=== PATIENT | male | born 1935 | race Caucasian/White ===

== ENCOUNTER 2016-10-18 22:45 | Inpatient (IN) | payer MEDICARE ==
--- NOTE | 2016-10-18 23:27 | ED ---
General Adult HPI - General Chief complaint: Fall Stated complaint: fall Time Seen by Provider: 10/18/16 23:01 Source: patient, family, EMS, RN notes reviewed Mode of arrival: EMS Limitations: physical limitation - History of Present Illness Initial comments: Patient is a pleasant 81-year-old male presenting to the emergency Department with right hip pain. Patient has poor vision and does frequently fall. Patient fell today. No syncope or loss of consciousness. No head injury. Patient does take Coumadin for atrial fibrillation. Patient complains of discomfort of his right hip that increases with movement. Patient was given pain medicine by EMS. Patient does not want any more pain medication at this time. Patient denies any other area of injury. - Related Data Home Medications Medication Instructions Recorded Confirmed Warfarin [Coumadin] 5 mg PO DAILY 09/08/14 10/18/16 amLODIPine BESYLATE [Norvasc] 10 mg PO DAILY 09/08/14 10/18/16 Metoprolol Tartrate [Lopressor] 50 mg PO DAILY 01/25/15 10/18/16 Lactose-Reduced Food [Boost] 1 can PO DAILY 10/18/16 10/18/16 Allergies Allergy/AdvReac Type Severity Reaction Status Date / Time cephalexin monohydrate Allergy Unknown Unknown Verified 10/18/16 23:11 [From Keflex] ciprofloxacin Allergy Unknown Verified 10/18/16 23:11 Penicillins Allergy Unknown Verified 10/18/16 23:11 Review of Systems ROS Statement: Those systems with pertinent positive or pertinent negative responses have been documented in the HPI. ROS Other: All systems not noted in ROS Statement are negative. Constitutional: Denies: fever Eyes: Denies: eye pain ENT: Denies: ear pain Respiratory: Denies: cough, dyspnea Cardiovascular: Denies: chest pain Endocrine: Denies: fatigue Gastrointestinal: Denies: abdominal pain Genitourinary: Denies: dysuria Musculoskeletal: Reports: arthralgia (Right hip pain) Skin: Denies: rash Neurological: Denies: headache, weakness Past Medical History Past Medical History: Atrial Fibrillation, CVA/TIA, Hypertension, Osteoarthritis (OA), Renal Disease Additional Past Medical History / Comment(s): 01/25/15 Pt presented to [facility] ER with having awoken with R leg weakness and tingling in his R arm. He tried walking and was unable to controll R leg. He is admitted with clinical impression of CVA. 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 History of Any Multi-Drug Resistant Organisms: None Reported Past Surgical History: Coronary Bypass/CABG Additional Past Surgical History / Comment(s): 2009 AAA repair with aortofembypass, bilateral cataract removal. Past Anesthesia/Blood Transfusion Reactions: No Reported Reaction Additional Past Anesthesia/Blood Transfusion Reaction / Comment(s): Per old medical records, pt did recieve blood after AAA repair. Past Psychological History: No Psychological Hx Reported Smoking Status: Current every day smoker Past Alcohol Use History: Daily Past Drug Use History: None Reported - Past Family History Father Family Medical History: CVA/TIA Additional Family Medical History / Comment(s): Father of a CVA at age 63 yrs. Mother Family Medical History: CVA/TIA, Myocardial Infarction ([place]) Additional Family Medical History / Comment(s): Mother at age 85 yrs. General Exam Limitations: physical limitation General appearance: alert, in no apparent distress Head exam: Present: atraumatic Eye exam: Present: PERRL, other (Disconjugate gaze) ENT exam: Present: normal oropharynx Neck exam: Present: normal inspection. Absent: tenderness Respiratory exam: Present: normal lung sounds bilaterally Cardiovascular Exam: Present: irregular rhythm GI/Abdominal exam: Present: soft. Absent: tenderness Extremities exam: Present: tenderness (Right anterior and lateral hip and upper femur.), other (Right leg is shortened and externally rotated. Distally the extremity is neurovascular intact. Pulses intact.) Back exam: Absent: tenderness, vertebral tenderness Neurological exam: Present: alert, oriented X3. Absent: motor sensory deficit Psychiatric exam: Present: normal affect, normal mood Skin exam: Present: normal color Course Vital Signs 10/18/16 10/19/16 22:46 00:19 Temperature 97.4 F L Pulse Rate 72 80 Respiratory 20 18 Rate Blood Pressure 143/76 151/79 O2 Sat by Pulse 96 99 Oximetry EKG Findings - EKG Comments: EKG Findings:: A. fib with a rate of 85. QRS 78. QT 368. QTC 437. Normal axis. Normal QRS. No acute ST change. Medical Decision Making - Medical Decision Making Case was discussed with Dr. Raya who will admit for orthopedic call. He does request medical clearance. - Radiology Data Interpreted by me: X-ray of the pelvis and right hip shows three-part right IT fracture. Chest x- ray shows old rib fractures. Disposition Clinical Impression: Fracture, intertrochanteric, right femur Disposition: ADMITTED IP TO THIS HOSP Referrals: Mark Avelar DO [Primary Care Provider] - 1-2 days Decision Time: 00:34
[2016-10-19] MEDS ORDERED: MORPHINE SULFATE 4 MG/ML SYRINGE IVP STA (00:17)
[2016-10-19] MEDS ORDERED: MORPHINE SULFATE 4 MG/ML SYRINGE IV PRN (00:35)
[2016-10-19] MEDS ORDERED: NALOXONE 0.4 MG/ML 1 ML VIAL IV PRN (00:35)
[2016-10-19] MEDS ORDERED: HYDROcodone/APAP 5-325MG 1 EACH TAB PO PRN (00:35)
--- NOTE | 2016-10-19 00:35 | XR ---
EXAM: XR Chest, 1 View CLINICAL HISTORY: Reason: pain TECHNIQUE: Frontal view of the chest -supine COMPARISON: Chest radiograph 01/25/2015 FINDINGS: Lungs: Lungs are clear. Pleural space: No definite pneumothorax or pleural effusion on supine chest examination. Heart: Heart size within normal limits. Mediastinum: Mediastinal structures are unremarkable. Bones/joints: Old right posterior-lateral fourth, fifth and sixth rib fractures. No definite acute bony abnormalities of imaged bony thorax. IMPRESSION: No evidence of acute cardiopulmonary disease.
--- NOTE | 2016-10-19 00:38 | XR ---
EXAM: XR Pelvis, 1 View CLINICAL HISTORY: Reason: Pain TECHNIQUE: Frontal view of the pelvis. COMPARISON: No relevant prior studies available. FINDINGS: Bones/joints: Degenerative changes involving the lower lumbar spine. No evidence of pelvic fracture or dislocation. There is comminuted, displaced right femoral intertrochanteric fracture. Left hip is unremarkable on AP pelvis. Soft tissues: Surgical clips in the pelvis bilaterally. Vasculature: Extensive arterial vascular calcifications. IMPRESSION: Comminuted, displaced right intertrochanteric femoral fracture. No evidence of pelvic fracture.
--- NOTE | 2016-10-19 00:44 | XR ---
EXAM: XR Right Femur, 2 Views CLINICAL HISTORY: Reason: Pain TECHNIQUE: Frontal and lateral views of the right femur. COMPARISON: Pelvic radiograph 10/18/2016 FINDINGS: Bones/joints: Comminuted fracture traverses the intertrochanteric proximal right femur with significant superior and anterior displacement of major distal fracture fragment as well as some overlapping of major femoral fracture fragments. Chronic appearing calcific density superior to the patella may be related to old trauma. No dislocation. Vasculature: Extensive arterial vascular calcifications. IMPRESSION: Comminuted, displaced intertrochanteric proximal right femoral fracture.
[2016-10-19] MEDS ORDERED: HYDROmorphone 1 MG/ML 1 ML SYRINGE IVP STA (00:59)
[2016-10-19 01:01] LABS: Basophils # (A) 0.1 k/uL (0-0.2); Basophils % (A) 1 %; CH 29.7; CHCM 32.2; Eosinophils % (A) 0 %; HCT 40.1 % (39.0-53.0); HDW 2.64; HGB 12.6 gm/dL (13.0-17.5); Luc # (Auto) 0.15; Luc % (Auto) 1; Lymphocytes % (A) 5 %; MCH 29.2 pg (25.0-35.0); MCHC 31.4 g/dL (31.0-37.0); MCV 92.9 fL (80.0-100.0); Mean Platelet Volume 8.7; Monocytes % (A) 5 %; Neutrophils # (A) 17.4 k/uL (1.3-7.7); Neutrophils % (A) 88 %; RBC 4.31 m/uL (4.30-5.90); RDW 15.9 % (11.5-15.5); WBC 19.7 k/uL (3.8-10.6); WBC (Perox) 19.03
[2016-10-19] MEDS: SODIUM CHLORIDE 0.9% 1,000 ML IV SCH (01:07)
[2016-10-19 01:15] LABS: Calcium 8.8 mg/dL (8.4-10.2); Potassium 4.9 mmol/L (3.5-5.1); Total Bilirubin 0.7 mg/dL (0.2-1.3); Total Protein 6.3 g/dL (6.3-8.2)
[2016-10-19 02:02] LABS: INR 2.6 (<1.2); Partial Thromboplastin Time 29.9 sec (22.0-30.0); Prothrombin Time 24.9 sec (9.0-12.0)
--- NOTE | 2016-10-19 09:00 | P.HPOR ---
History of Present Illness H&P Date: 10/19/16 Chief Complaint: Right hip pain This is an 81-year-old male who fell in his home yesterday sustaining injury to his right hip. He states he normally ambulates with a cane for assistance. He admits to drinking 6 beers a day but states that he hasn't had anything to drink in a couple of weeks. On exam and x-ray in the emergency department he is found to have a comminuted displaced intertrochanteric fracture of the right hip. He is admitted to our service for surgical intervention and care. Past Medical History Past Medical History: Atrial Fibrillation, CVA/TIA, Hypertension, Osteoarthritis (OA), Renal Disease Additional Past Medical History / Comment(s): 01/25/15 Pt presented to [facility] ER with having awoken with R leg weakness and tingling in his R arm. He tried walking and was unable to controll R leg. He is admitted with clinical impression of CVA. 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 History of Any Multi-Drug Resistant Organisms: None Reported Past Surgical History: Coronary Bypass/CABG Additional Past Surgical History / Comment(s): 2008 AAA repair with aortofembypass, bilateral cataract removal. Past Anesthesia/Blood Transfusion Reactions: No Reported Reaction Additional Past Anesthesia/Blood Transfusion Reaction / Comment(s): Per old medical records, pt did recieve blood after AAA repair. Past Psychological History: No Psychological Hx Reported Additional Psychological History / Comment(s): Pt resides alone. His vision is very poor bilaterally. He has tripped and fell. He has a cane to use when he feels he needs it. He cannot drive to to vision, family takes him places. He has a dog. Smoking Status: Current every day smoker Past Alcohol Use History: Daily Additional Past Alcohol Use History / Comment(s): Pt states he is a ppd smoker for about 63 yrs. He drinks 30 beers a week-yesenia buys his beer and states he averages 4-6 beers a day. Past Drug Use History: None Reported - Past Family History Father Family Medical History: CVA/TIA Additional Family Medical History / Comment(s): Father of a CVA at age 63 yrs. Mother Family Medical History: CVA/TIA, Myocardial Infarction ([place]) Additional Family Medical History / Comment(s): Mother at age 85 yrs. Medications and Allergies Home Medications Medication Instructions Recorded Confirmed Type Warfarin [Coumadin] 5 mg PO DAILY 09/08/14 10/18/16 History amLODIPine BESYLATE [Norvasc] 10 mg PO DAILY 09/08/14 10/18/16 History Metoprolol Tartrate [Lopressor] 50 mg PO DAILY 01/25/15 10/18/16 History Lactose-Reduced Food [Boost] 1 can PO DAILY 10/18/16 10/18/16 History Allergies Allergy/AdvReac Type Severity Reaction Status Date / Time cephalexin monohydrate Allergy Unknown Unknown Verified 10/18/16 23:11 [From Keflex] ciprofloxacin Allergy Unknown Verified 10/18/16 23:11 Penicillins Allergy Unknown Verified 10/18/16 23:11 Physical Examination This is an 81-year-old male in no acute distress. He is alert and oriented 3. Exam of the head neck reveal no obvious deformity. He has full cervical spine motion without difficulty or pain. There is no pain palpation about the cervical spine or paraspinal musculature. Exam of the upper extremities unremarkable. He has really good shoulder, elbow, wrist and finger motion without difficulty or pain. No obvious deformities noted. Exam of the lower extremities reveals shortening and external rotation of the right leg. He is able to wiggle toes on the right lower extremity. No pain with motion to the left hip. Neurovascular status to the lower extremities is intact. Results X-rays of the pelvis and right hip reveal a comminuted and shortened intertrochanteric fracture of the right hip. - Labs Labs: Abnormal Lab Results - Last 24 Hours (Table) 10/18/16 10/18/16 10/18/16 Range/Units 22:57 22:57 22:57 WBC 19.7 H (3.8-10.6) k/uL Hgb 12.6 L (13.0-17.5) gm/dL RDW 15.9 H (11.5-15.5) % Neutrophils # 17.4 H (1.3-7.7) k/uL PT 24.9 H (9.0-12.0) sec INR 2.6 H (<1.2) Carbon Dioxide 21 L (22-30) mmol/L BUN 23 H (9-20) mg/dL Creatinine 1.40 H (0.66-1.25) mg/dL Glucose 201 H (74-99) mg/dL Albumin 3.3 L (3.5-5.0) g/dL H & H 10/18/16 Range/Units 22:57 Hgb 12.6 L (13.0-17.5) gm/dL Hct 40.1 (39.0-53.0) % Coagulation 10/18/16 Range/Units 22:57 INR 2.6 H (<1.2) Result Diagrams: 10/18/16 22:57 10/18/16 22:57 Assessment and Plan (1) Fracture, intertrochanteric, right femur Status: Acute (2) EtOH dependence Status: Acute Plan: The clinical and x-ray findings are discussed with the patient. He is admitted to our service for surgical intervention. It is recommended that he undergo closed reduction with insertion of intertrochanteric nail of the right hip. The patient's white count is 19.7. His INR is 2.6. We we'll try to get his INR down over the next 24 hours. We're waiting medical evaluation for presurgical clearance. We will tentatively plan surgery for tomorrow.
[2016-10-19] MEDS: NICOTINE 14MG/24HR PATCH TRANSDERM SCH (09:04)
[2016-10-19] MEDS: HYDROmorphone 1 MG/ML 1 ML SYRINGE IVP PRN ×3 (09:08→16:47)
[2016-10-19] MEDS ORDERED: LORazepam 2 MG/ML SYRINGE IV PRN ×3 (09:15)
[2016-10-19] MEDS ORDERED: THIAMINE 100 MG/ML 2 ML VIAL IM STA (09:15)
[2016-10-19] MEDS ORDERED: PHYTONADIONE ORAL 5 MG/5 ML ORAL.SYRG PO STA (09:16)
[2016-10-19] MEDS: PANTOPRAZOLE 40 MG/10 ML VIAL IVP SCH (10:16)
[2016-10-19] MEDS: METOPROLOL TARTRATE 50 MG TAB PO SCH ×2 (10:18→20:33)
[2016-10-19 10:26] LABS: Calcium 8.4 mg/dL (8.4-10.2); Total Bilirubin 0.9 mg/dL (0.2-1.3); Total Protein 6.2 g/dL (6.3-8.2)
[2016-10-19 10:34] LABS: Basophils % (A) 0 %; CH 29.6; CHCM 31.5; Eosinophils % (A) 0 %; HCT 38.6 % (39.0-53.0); HDW 2.68; HGB 11.8 gm/dL (13.0-17.5); Hypochromasia Slight; Luc # (Auto) 0.16; Luc % (Auto) 1; Lymphocytes # (A) 1.4 k/uL (1.0-4.8); Lymphocytes % (A) 10 %; MCH 28.9 pg (25.0-35.0); MCHC 30.6 g/dL (31.0-37.0); MCV 94.5 fL (80.0-100.0); Mean Platelet Volume 8.7; Monocytes # (A) 0.9 k/uL (0-1.0); Monocytes % (A) 7 %; Neutrophils # (A) 11.6 k/uL (1.3-7.7); Neutrophils % (A) 82 %; RBC 4.08 m/uL (4.30-5.90); RDW 15.9 % (11.5-15.5); WBC 14.1 k/uL (3.8-10.6); WBC (Perox) 13.85
[2016-10-19 10:38] LABS: Potassium 5.4 mmol/L (3.5-5.1)
--- NOTE | 2016-10-19 15:01 | XR ---
EXAMINATION TYPE: XR chest 2V DATE OF EXAM: 10/19/2016 COMPARISON: 09/08/2014 TECHNIQUE: PA and lateral views submitted. HISTORY: Elevated white blood cell count, A. fib FINDINGS: Subsegmental infiltrate at both lung bases. Chronic appearing rib deformities are seen on the right. Arthropathy of both shoulders. No pneumothorax or overt failure. Limited inspiration noted. Atherosclerotic change of the aorta and degenerative change of the spine. IMPRESSION: 1. Basilar subsegmental atelectasis or early infiltrate correlate clinically.
[2016-10-19] MEDS: THIAMINE 100 MG TAB PO SCH (16:44)
[2016-10-20] MEDS: SODIUM CHLORIDE 0.9% 1,000 ML IV SCH ×3 (00:12→11:00)
[2016-10-20] MEDS: HYDROmorphone 1 MG/ML 1 ML SYRINGE IVP PRN (04:04)
--- NOTE | 2016-10-20 06:57 | CONS ---
REASON FOR CONSULTATION: Medical clearance. HISTORY OF PRESENTING ILLNESS: This is an 81-year-old gentleman with history of atrial fibrillation, hypertension, comes into the hospital after sustaining a fall. The patient apparently is legally blind. Patient lives alone. Apparently was walking and suddenly what he thinks is a mechanical fall and tripped and fell. Patient was noted to have significant amount lower abdominal pain and right- sided hip pain. The patient was evaluated in the emergency room and was noted to have an occult fracture. The patient was admitted to the orthopedic service. We were consulted for medical clearance. Patient apparently is able to ambulate with a cane, is minimally active. EKG was noted without any ST-T wave changes. No conduction delays were noted. Past medical history includes atrial fibrillation, CVA, hypertension, osteoarthritis, CKD. SURGICAL HISTORY: Noted for a CABG, AAA repair, bilateral cataract repair. SOCIAL HISTORY: Daily smoker. Lives alone. Drinks about 6 beers daily. No illicit drug uses reported. FAMILY HISTORY: ( ) to the current admission. MEDICATIONS: Home medications will be reviewed, ( ) reconciled. PHYSICAL EXAM: Vitals were reviewed. GENERAL APPEARANCE: Alert and oriented x3, in mild distress. NECK: Supple. No JVD. Head is atraumatic, normocephalic. Pupils are equal, round and reactive to light and accommodation. LUNGS: Diminished breath sounds at bases. No wheezing, rhonchi or crackles. HEART: S1, S2 heard. No murmurs appreciated. ABDOMEN: Soft, nontender. No organomegaly. MUSCULOSKELETAL: Shortening of the right leg with external rotation. LEFT HIP: No tenderness with hip motion. No focal deficits noted on neurologic evaluation. X-ray results were discussed above. Labs include hemoglobin 12.6, hematocrit 40, white count 19.7, platelets of 316. Sodium 137, potassium 4.9, chloride 106, bicarb 21, BUN 23, creatinine 1.40. ASSESSMENT AND PLAN: 1. Right-sided hip fracture due to mechanical fall. 2. Essential hypertension. 3. Atrial fibrillation, that is chronic and persistent. 4. Therapeutic coagulopathy due to Coumadin use. 5. Legal blindness. 6. Alcohol overuse. PLAN: Patient safety issues will need to be addressed prior to discharge. Patient is cleared for the surgery due to the urgent nature of the procedure. The patient is on DVT prophylaxis for another reason. PT,OT will be evaluated. Home safety will also be evaluated. Thank you for the consultation. Will follow the patient along with you. CIWA protocol should be initiated as well. Thiamine is initiated. MTDD
[2016-10-20 07:34] LABS: INR 2.3 (<1.2); Prothrombin Time 22.2 sec (9.0-12.0)
[2016-10-20 07:37] LABS: Anisocytosis Slight; Basophils % (A) 0 %; CH 29.6; CHCM 31.4; Eosinophils % (A) 0 %; HCT 33.8 % (39.0-53.0); HDW 2.62; HGB 10.3 gm/dL (13.0-17.5); Hypochromasia Slight; Luc # (Auto) 0.19; Luc % (Auto) 1; Lymphocytes # (A) 1.2 k/uL (1.0-4.8); Lymphocytes % (A) 9 %; MCHC 30.5 g/dL (31.0-37.0); MCV 95.1 fL (80.0-100.0); Mean Platelet Volume 8.8; Monocytes # (A) 0.8 k/uL (0-1.0); Monocytes % (A) 6 %; Neutrophils # (A) 10.9 k/uL (1.3-7.7); Neutrophils % (A) 83 %; RBC 3.56 m/uL (4.30-5.90); RDW 16.1 % (11.5-15.5); WBC 13.2 k/uL (3.8-10.6); WBC (Perox) 13.26
[2016-10-20] MEDS: amLODIPine 10 MG TAB PO SCH (07:41)
[2016-10-20] MEDS: METOPROLOL TARTRATE 50 MG TAB PO SCH ×2 (07:41→20:56)
[2016-10-20] MEDS: NICOTINE 14MG/24HR PATCH TRANSDERM SCH (07:42)
--- NOTE | 2016-10-20 07:45 | US ---
EXAMINATION TYPE: US venous doppler duplex LE RT DATE OF EXAM: 10/20/2016 7:38 AM COMPARISON: NONE CLINICAL HISTORY: swollen red thigh,rule out DVT. SIDE PERFORMED: Right TECHNIQUE: The lower extremity deep venous system is examined utilizing real time linear array sonog deloris with graded compression, doppler sonography and color-flow sonography. VESSELS IMAGED: External Iliac Vein (EIV) Common Femoral Vein Deep Femoral Vein Greater Saphenous Vein * Femoral Vein Popliteal Vein Small Saphenous Vein * Proximal Calf Veins (* superficial vessels) Grayscale, color doppler, spectral doppler imaging performed of the deep veins of the lower extremit y. There is normal flow, compressibility, vascular waveforms. Right Leg: No evidence of DVT Right femoral vessel Proximal and Mid appear constricted, most likely due to edema, position of leg a nd unrepaired fracture site ( surgery this afternoon); However, flow and compression are both achiev ed IMPRESSION: No evidence for DVT at this time.
[2016-10-20 07:49] LABS: Potassium 5.4 mmol/L (3.5-5.1)
[2016-10-20] MEDS: PANTOPRAZOLE 40 MG/10 ML VIAL IVP SCH (11:00)
[2016-10-20] MEDS: THIAMINE 100 MG TAB PO SCH ×2 (12:27→17:11)
[2016-10-20] MEDS: traMADol 50 MG TAB PO PRN ×2 (12:41→18:46)
[2016-10-20] MEDS ORDERED: SODIUM POLYSTYRENE SULFONATE 30 GM/120 ML BOTTLE RECTAL STA (13:30)
--- NOTE | 2016-10-20 13:57 | CDI ---
In responding to this query, please exercise your independent professional judgment. The [facility] Coding Staff and Clinical Documentation Specialists appreciate your assistance in clarifying documentation, maintaining compliance with coding guidelines, accurately documenting patients condition and capturing severity of illness. The fact that a question is asked does not imply that any particular answer is desired or expected. Communication forms are a method of clarifying documentation and are not made part of the Legal Health Record. Thank you in advance for your clarification. Last Revision, December 2014 Jayshree Magallanes [address] [place] [address] Documentation Clarification Form Date: 10/20/2016 1:39:00 PM From: Katherine Gil Admit Date: 10/19/2016 12:35:00 AM Patient Name: Leon Burrell Visit Number: [id number] Discharge Date: Dr. Atul Persaud Patient presents with a BUN 23, CR 1.40, GFR 49 10/20/16 BUN 24, CR 2.48, GFR 25 Baseline: not noted History/Risk Factors: Chronic Kidney disease, Chronic persistent atrial fibrillation, Hypertension, CVA, Current every day smoker, Alcohol use daily Clinical Indicators: Abnormal lab values Vital signs: 143/76 72 20 97.4 Treatment: Monitor Labs IV Fluids@ 100mil/hr In order to capture the severity of condition, please clarify if the condition signifies: Acute renal failure Please specify (if known): Cortical, Medullary, or Tubular Necrosis? Acute kidney injury Acute on chronic renal failure Chronic renal failure, please stage Chronic kidney disease (CKD) and please stage Stage 1 GFR >90 Stage 2 GFR 60-89 Stage 3 GFR 30-59 Stage 4 GFR 15-29 Stage 5 GFR <15 ESRD Unable to determine Other, specify Please document in your progress notes in order to capture severity of illness and risk of mortality. Include clinical findings that support your diagnosis. FYI: Press F11 to launch patient chart. [id number]
[2016-10-20] MEDS ORDERED: IV FLUID CONTINUATION 1,000 ML IV ONE (14:45)
[2016-10-20] MEDS ORDERED: HYDROmorphone 1 MG/ML 1 ML SYRINGE IVP PRN ×2 (15:01)
[2016-10-20] MEDS ORDERED: DIAZEPAM 5 MG TAB PO PRN (15:01)
[2016-10-20] MEDS ORDERED: HYDROcodone/APAP 5-325MG 1 EACH TAB PO PRN (15:01)
[2016-10-20] MEDS ORDERED: NALOXONE 0.4 MG/ML 1 ML VIAL IV PRN (15:01)
[2016-10-20] MEDS ORDERED: hydrOXYzine PAMOATE 25 MG CAP PO PRN (15:01)
[2016-10-20] MEDS ORDERED: MAGNESIUM HYDROXIDE 2,400 MG/10 ML CUP PO PRN (15:01)
[2016-10-20] MEDS ORDERED: LIDOCAINE 1% INJ 10MG/ML (20 ML MDV) ONE (15:47)
[2016-10-20] MEDS ORDERED: GLYCOPYRROLATE 0.2 MG/ML 2 ML VIAL ONE (15:47)
[2016-10-20] MEDS ORDERED: SUCCINYLCHOLINE CHLORIDE 100 MG/5 ML SYR IV ONE (15:47)
[2016-10-20] MEDS ORDERED: NEOSTIGMINE 1 MG/ML 10 ML VIAL ONE (15:47)
[2016-10-20] MEDS ORDERED: VECURONIUM 10 MG VIAL IV ONE (15:47)
[2016-10-20] MEDS ORDERED: PROPOFOL 10 MG/ML 20 ML VIAL IV ONE (15:47)
[2016-10-20] MEDS ORDERED: PHENYLEPHRINE-0.9% NACL SYG 1 MG/10 ML SYRINGE ONE (15:47)
[2016-10-20] MEDS ORDERED: HYDROmorphone (PF) 1 MG/ML ONE (15:47)
[2016-10-20] MEDS ORDERED: CLINDAMYCIN 600 MG in SODIUM CHLORIDE 0.9% 1,000 ML IRRIGATION ONE (16:47)
[2016-10-20] MEDS: LACTATED RINGERS 1,000 ML IV SCH (17:11)
--- NOTE | 2016-10-20 17:56 | P.OP ---
Date of Procedure: 10/20/16 Preoperative Diagnosis: Postoperative Diagnosis: Procedure(s) Performed: PREOPERATIVE DIAGNOSIS: Right hip comminuted intertrochanteric fracture. POSTOPERATIVE DIAGNOSIS: Right hip comminuted intertrochanteric fracture. OPERATION: Right hip comminuted intertrochanteric fracture closed reduction and intramedullary nailing using Synthes IT nail. ANESTHESIA: Gen. ESTIMATED BLOOD LOSS: 100 mL (approximately 150 mL of additional old blood was evacuated from the hip region.) COMPLICATIONS: None OPERATIVE FINDINGS: See dictation INDICATIONS: Mr. Burrell is an 81-year-old male with a history of falling and sustaining a right intertrochanteric fracture. The patient presents to the operating room today for closed reduction and intramedullary nailing. He is on Coumadin and has developed a hematoma around the hip. I discussed the risks of surgery in detail as being inclusive of but not limited to: Bleeding, infection , scarring, discomfort, blood vessel and/or nerve damage, need for further surgery, malunion, nonunion, gait disturbance including persistent or permanent limp, limb length inequality, arthritis, hardware failure, blood clot, pulmonary embolism, , and other risks. The consent form has been signed. PROCEDURE: After appropriate consent was obtained, the patient was taken to the operating room and placed in supine position. General anesthetic was administered and after confirmation of adequate anesthesia, the patient was carefully placed in the supine position on the operating room table in the fracture table. The patient was placed up against a well-padded peroneal post. Care was taken to make sure about that all pressure points were adequately padded. The affected leg was placed in boot traction and the unaffected leg was placed in a well leg church. It was noted that the right knee contained a 2+ effusion but was stable to medial lateral force. Traction applied to this right leg was therefore carefully adjusted so that it was not excessive. Using gentle longitudinal distraction as well as adduction and internal rotation , the fracture was reduced as assessed by AP and lateral C-arm imaging. Once a satisfactory reduction had been obtained, the thigh was prepped and draped in the usual aseptic fashion using ChloraPrep. Ioban drape was used for the case and the patient received intravenous antibiotics prior to incision. Timeout was called, confirming patient identity, side, procedure, and administration of antibiotics. The incision was then created with a #10 blade just proximal to the greater trochanter laterally. It was carried down through skin into the subcutaneous tissues and through fascia. Hemostasis was obtained using electrocautery. Approximately 150 mL of old blood was suctioned out of the area of the hip using a Yankauer suction. The tip of the greater trochanter was palpated and a guide pin was placed at the tip and directed into the femoral shaft as assessed with C-arm imaging. Once optimal pin position had been obtained, a 17 mm reamer was used over the guide pin to create a path for the IT nail. IT nail selected was assembled to the insertion jig on the back table and bushings were checked for accuracy. The nail was then inserted using gentle mallet taps until it was fully deployed. The amount of rotation of the implant was assessed based on the amount of anteversion of the femoral neck. This was rotated to match the patient 's femoral neck anteversion and the helical blade guide was placed through the insertion jig and through an incision on the lateral side of the thigh more distal than the first. Once this guide was placed against the lateral cortex of the femur, a guide pin was drilled into the central region of the femoral head and neck as based on AP and lateral C-arm imaging. Once optimal pin position had been obtained, the guidewire was measured and appropriately sized helical blade was selected. The path for the helical blade was prepared using a tapered reamer. The helical blade was then inserted using gentle mallet taps along the guidewire until it was fully deployed. There was no displacement of the fracture during this step. The anti-rotation screw was locked down and the insertion apparatus for the helical blade was removed. The guide pin was then removed. Traction was then removed from the leg and the distal interlock was placed through the jig using standard technique. Finally, the insertion jig for the nail was removed and final C-arm images were taken and saved in both AP and lateral planes. The final x-rays showed satisfactory positioning of the implant and good reduction of the fracture. The top of the nail was plugged with a small quantity of bone wax and the incisions were then thoroughly irrigated with normal saline. Final hemostasis was obtained using electrocautery and closure of the fascia was performed using 0-Vicryl suture. 2-0 Vicryl suture was used in the subcutaneous tissues and standard skin closure was performed. Sterile dressing was then applied and the patient was carefully removed from the fracture table frame and placed onto the stretcher. The patient tolerated the procedure well. There were no complications and above noted blood loss. The patient was then subsequently transferred to recovery room in stable condition. Sponge and needle counts were correct. Implants: Indications for Procedure: Operative Findings: Description of Procedure:
[2016-10-20 20:16] LABS: Anisocytosis Slight; Basophils % (A) 0 %; CH 29.6; CHCM 31.4; Eosinophils % (A) 0 %; HCT 29.4 % (39.0-53.0); HDW 2.58; HGB 9.1 gm/dL (13.0-17.5); Hypochromasia Slight; Luc % (Auto) 1; Lymphocytes # (A) 0.7 k/uL (1.0-4.8); Lymphocytes % (A) 5 %; MCH 29.4 pg (25.0-35.0); MCV 94.7 fL (80.0-100.0); Mean Platelet Volume 8.9; Monocytes # (A) 0.9 k/uL (0-1.0); Monocytes % (A) 6 %; Neutrophils # (A) 13.1 k/uL (1.3-7.7); Neutrophils % (A) 88 %; RDW 16.1 % (11.5-15.5); WBC 14.9 k/uL (3.8-10.6); WBC (Perox) 15.77
[2016-10-20] MEDS: CLINDAMYCIN 900 MG in DEXTROSE 5% IN WATER 50 ML IVPB SCH ×2 (21:23)
--- NOTE | 2016-10-20 21:29 | XR ---
EXAMINATION TYPE: XR Hip Limited RT DATE OF EXAM: 10/20/2016 COMPARISON: NONE HISTORY: Intraoperative surgery TECHNIQUE: One view submitted. FINDINGS: There is a postsurgical change in near anatomic alignment. There is soft tissue edema and emphysema. IMPRESSION: 1. Postoperative change. Appears in near-anatomic alignment.
[2016-10-20] MEDS: IPRATROPIUM-ALBUTEROL 3 ML NEB INHALATION SCH (21:31)
[2016-10-20] MEDS: BUDESONIDE 1 MG/2 ML NEBU INHALATION SCH (21:31)
--- NOTE | 2016-10-20 21:48 | XR ---
EXAMINATION TYPE: XR chest 1V portable DATE OF EXAM: 10/20/2016 COMPARISON: Yesterday HISTORY: Hypoxemia TECHNIQUE: Single frontal view of the chest is obtained. FINDINGS: Heart is probably enlarged. There is some infiltrate and atelectasis at both lung bases. T here is no gross heart failure. There are old right-sided healed rib fractures. There are chest leads . IMPRESSION: No heart failure. There is some increasing infiltrate and atelectasis at the lung bases and more on the right side compared to yesterday.
[2016-10-20] MEDS ORDERED: TEMAZEPAM 15 MG CAP PO PRN (22:00)
[2016-10-21] MEDS: SODIUM CHLORIDE 0.9% 1,000 ML IV SCH ×4 (00:18→15:33)
[2016-10-21] MEDS: SENNOSIDES-DOCUSATE SODIUM 1 EACH TAB PO SCH ×2 (00:18→20:45)
[2016-10-21] MEDS: traMADol 50 MG TAB PO PRN (01:06)
[2016-10-21] MEDS: CLINDAMYCIN 900 MG in DEXTROSE 5% IN WATER 50 ML IVPB SCH ×2 (02:03)
[2016-10-21] MEDS: LACTATED RINGERS 1,000 ML IV SCH ×3 (02:04→22:24)
[2016-10-21] MEDS: HYDROmorphone 1 MG/ML 1 ML SYRINGE IVP PRN ×2 (02:57→22:17)
[2016-10-21] MEDS: BUDESONIDE 1 MG/2 ML NEBU INHALATION SCH ×2 (06:04→19:40)
[2016-10-21] MEDS: IPRATROPIUM-ALBUTEROL 3 ML NEB INHALATION SCH ×4 (06:04→19:40)
[2016-10-21] MEDS ORDERED: FUROSEMIDE 10 MG/ML 4 ML VIAL IV STA (06:18)
--- NOTE | 2016-10-21 07:21 | XR ---
EXAMINATION TYPE: XR chest 1V portable DATE OF EXAM: 10/21/2016 COMPARISON: NONE HISTORY: Reduced oxygen saturation TECHNIQUE: Single frontal view of the chest is obtained. FINDINGS: Chronic rib deformities on the right noted. There is underlying COPD. No sizable pneumotho rax. Bilateral areas of infiltrate and tiny effusion noted. Atherosclerotic change aorta. IMPRESSION: 1. Bilateral areas of infiltrate and tiny effusion with underlying COPD.
[2016-10-21 08:10] LABS: Basophils % (A) 0 %; CH 28.6; CHCM 30.4; Eosinophils % (A) 0 %; HCT 26.8 % (39.0-53.0); HDW 2.55; HGB 8.4 gm/dL (13.0-17.5); Hypochromasia Moderate; Luc # (Auto) 0.25; Luc % (Auto) 2; Lymphocytes # (A) 0.8 k/uL (1.0-4.8); Lymphocytes % (A) 5 %; MCH 29.8 pg (25.0-35.0); MCHC 31.5 g/dL (31.0-37.0); MCV 94.6 fL (80.0-100.0); Mean Platelet Volume 8.1; Monocytes # (A) 0.9 k/uL (0-1.0); Monocytes % (A) 6 %; Neutrophils % (A) 87 %; RBC 2.84 m/uL (4.30-5.90); RDW 15.4 % (11.5-15.5); WBC 14.9 k/uL (3.8-10.6); WBC (Perox) 15.97
[2016-10-21 08:21] LABS: Calcium 7.7 mg/dL (8.4-10.2); Potassium 4.8 mmol/L (3.5-5.1)
[2016-10-21 08:25] LABS: INR 1.7 (<1.2); Prothrombin Time 16.4 sec (9.0-12.0)
[2016-10-21] MEDS ORDERED: FUROSEMIDE 10 MG/ML 2 ML VIAL IV ONE (08:50)
[2016-10-21 10:25] LABS: ABG Base Excess -5.1 mmol/L; ABG HCO3 17 mmol/L (21-25); ABG PCO2 21 mmHg (35-45); ABG PH 7.53 (7.35-7.45); ABG PO2 83 mmHg (83-108); ABG TCO2 18 mmol/L (19-24)
--- NOTE | 2016-10-21 10:42 | P.CNPUL ---
History of Present Illness Consult date: 10/21/16 Reason for consult: hypoxemia Chief complaint: Low saturations and possible respiratory distress. History of present illness: Consult dated 10/21/2016 This is an 81-year-old male who apparently presented to the emergency room after falling and fracturing his right hip. I the patient has poor vision and for falls frequently. He apparently sustained a right hip fracture and had surgery yesterday by one of the orthopedic surgeons. I will call yesterday by the nurse early in the morning. Apparently beginning sometime late last night or early in the morning, the patient developed some depressed saturations. They kept on increasing the FiO2. Some additional medications were ordered including some updrafts and Pulmicort. Also in addition, he does some Lasix. Chest x-ray was done. He was placed on a nonrebreather. He denies being short of breath. Denies all complaints. Not a very good historian. It's really hard to get any information from him. He seemed a little to. His saturations are in the high 80s on a nonrebreather and his heart rates in the low 100s. Blood pressures about 110 systolic. Again the patient is not complaining of anything himself. This was the case last night with the nurse call me as well. An 18 was called twice. His home medications apparently included warfarin amlodipine metoprolol and boost. ALLERGIES are Keflex his ciprofloxacin and penicillin. Medical history includes atrial fibrillation CVA hypertension DJD A. fib poor vision BPH anemia and ileus. Surgical history includes bypass grafting AAA repair aortobifem bypass and cataract surgery. Social history significant that is occurring every day smoker and may have some underlying COPD. Denies any alcohol use or illicit drug use. Review of Systems This patient is a very poor historian and denies all complaints. He states she' s not short of breath. Past Medical History Past Medical History: Atrial Fibrillation, CVA/TIA, Hypertension, Osteoarthritis (OA), Renal Disease Additional Past Medical History / Comment(s): 01/25/15 Pt presented to [facility] ER with having awoken with R leg weakness and tingling in his R arm. He tried walking and was unable to controll R leg. He is admitted with clinical impression of CVA. 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 History of Any Multi-Drug Resistant Organisms: None Reported Past Surgical History: Coronary Bypass/CABG Additional Past Surgical History / Comment(s): 2008 AAA repair with aortofembypass, bilateral cataract removal. Past Anesthesia/Blood Transfusion Reactions: No Reported Reaction Additional Past Anesthesia/Blood Transfusion Reaction / Comment(s): Per old medical records, pt did recieve blood after AAA repair. Past Psychological History: No Psychological Hx Reported Additional Psychological History / Comment(s): Pt resides alone. His vision is very poor bilaterally. He has tripped and fell. He has a cane to use when he feels he needs it. He cannot drive to to vision, family takes him places. He has a dog. Smoking Status: Current every day smoker Past Alcohol Use History: Daily Additional Past Alcohol Use History / Comment(s): Pt states he is a ppd smoker for about 63 yrs. He drinks 30 beers a week-yesenia buys his beer and states he averages 4-6 beers a day. Past Drug Use History: None Reported - Past Family History Father Family Medical History: CVA/TIA Additional Family Medical History / Comment(s): Father of a CVA at age 63 yrs. Mother Family Medical History: CVA/TIA, Myocardial Infarction ([place]) Additional Family Medical History / Comment(s): Mother at age 85 yrs. Medications and Allergies Home Medications Medication Instructions Recorded Confirmed Type Warfarin [Coumadin] 5 mg PO DAILY 09/08/14 10/18/16 History amLODIPine BESYLATE [Norvasc] 10 mg PO DAILY 09/08/14 10/18/16 History Metoprolol Tartrate [Lopressor] 50 mg PO DAILY 01/25/15 10/18/16 History Lactose-Reduced Food [Boost] 1 can PO DAILY 10/18/16 10/18/16 History Allergies Allergy/AdvReac Type Severity Reaction Status Date / Time cephalexin monohydrate Allergy Unknown Unknown Verified 10/18/16 23:11 [From Keflex] ciprofloxacin Allergy Unknown Verified 10/18/16 23:11 Penicillins Allergy Unknown Verified 10/18/16 23:11 Physical Exam Osteopathic Statement: *. No significant issues noted on an osteopathic structural exam other than those noted in the History and Physical/Consult. Vitals: Vital Signs Temp Pulse Pulse Pulse Pulse Resp BP 10/21/16 08:27 10/21/16 06:16 101 H 10/21/16 06:10 10/21/16 06:04 94 10/21/16 06:00 10/21/16 04:08 98.7 F 118 H 119/59 10/21/16 00:00 10/20/16 22:00 10/20/16 21:45 98 10/20/16 21:34 79 10/20/16 20:40 98 139/68 10/20/16 20:25 89 128/64 10/20/16 20:10 88 125/61 10/20/16 20:00 112 H 20 10/20/16 19:55 76 108/55 10/20/16 19:40 81 114/58 10/20/16 19:25 84 119/58 10/20/16 19:10 82 115/57 10/20/16 18:55 85 122/62 10/20/16 18:40 98.9 F 97 131/68 10/20/16 18:17 101 H 20 126/78 10/20/16 18:02 112 H 20 121/79 10/20/16 17:47 110 H 20 124/80 10/20/16 17:32 98.9 F 107 H 20 126/79 10/20/16 15:04 10/20/16 14:54 97.9 F 10/20/16 14:48 100 18 143/65 Pulse Ox 10/21/16 08:27 91 L 10/21/16 06:16 10/21/16 06:10 88 L 10/21/16 06:04 10/21/16 06:00 85 L 10/21/16 04:08 90 L 10/21/16 00:00 94 L 10/20/16 22:00 96 10/20/16 21:45 10/20/16 21:34 10/20/16 20:40 95 10/20/16 20:25 96 10/20/16 20:10 95 10/20/16 20:00 10/20/16 19:55 94 L 10/20/16 19:40 95 10/20/16 19:25 93 L 10/20/16 19:10 92 L 10/20/16 18:55 92 L 10/20/16 18:40 94 L 10/20/16 18:17 95 10/20/16 18:02 92 L 10/20/16 17:47 94 L 10/20/16 17:32 97 10/20/16 15:04 86 L 10/20/16 14:54 10/20/16 14:48 90 L Intake and Output 10/20/16 10/21/16 10/21/16 22:59 06:59 14:59 Intake Total 650 800 Output Total 480 550 125 Balance 170 250 -125 Intake: IV 650 800 Sodium Chloride 0.9% 1, 800 000 ml @ 100 mls/hr IV . Q10H MAX Rx#:[id number] Oral 0 Output: Urine 380 550 125 Estimated Blood Loss 100 Other: Voiding Method Indwelling Catheter # Bowel Movements 1 No acute distress. Mildly Tachypnea can dyspneic. Does not really appear to be much difficulty. HEENT examination is grossly unremarkable. Mucous membranes are moist. No oral lesions neck supple. Neck has Full range of motion. No adenopathy or thyromegaly. Cardiovascular examination reveals regular rhythm rate. S1-S2 normal. No S3- S4 or murmur. Lungs reveal mostly clear but clear breath sounds. No wheezes or rhonchi. No crackles. Abdomen soft bowel sounds are heard. Extremities are intact. No cyanosis clubbing or edema. Skin is without rash. Neurologic examination is brief but nonfocal. Results - Laboratory Findings CBC and BMP: 10/21/16 07:35 10/21/16 07:35 ABG ABG pH 7.53 (7.35-7.45) H 10/21/16 09:20 ABG pCO2 21 mmHg (35-45) L 10/21/16 09:20 ABG pO2 83 mmHg (83-108) 10/21/16 09:20 ABG O2 Saturation 98.0 % (94-97) H 10/21/16 09:20 PT/INR, D-dimer PT 16.4 sec (9.0-12.0) H 10/21/16 07:35 INR 1.7 (<1.2) H 10/21/16 07:35 Abnormal lab findings: Abnormal Labs 10/18/16 10/18/16 10/18/16 22:57 22:57 22:57 WBC 19.7 H RBC Hgb 12.6 L Hct MCHC RDW 15.9 H Neutrophils # 17.4 H Lymphocytes # PT 24.9 H INR 2.6 H ABG pH ABG pCO2 ABG HCO3 ABG Total CO2 ABG O2 Saturation Sodium Potassium Carbon Dioxide 21 L BUN 23 H Creatinine 1.40 H Glucose 201 H Calcium Total Protein Albumin 3.3 L 10/19/16 10/19/16 10/20/16 10:00 10:00 06:51 WBC 14.1 H RBC 4.08 L Hgb 11.8 L Hct 38.6 L MCHC 30.6 L RDW 15.9 H Neutrophils # 11.6 H Lymphocytes # PT 22.2 H INR 2.3 H ABG pH ABG pCO2 ABG HCO3 ABG Total CO2 ABG O2 Saturation Sodium Potassium 5.4 H Carbon Dioxide 20 L BUN 32 H Creatinine 1.98 H Glucose 152 H Calcium Total Protein 6.2 L Albumin 3.1 L 10/20/16 10/20/16 10/20/16 06:51 06:51 19:51 WBC 13.2 H 14.9 H RBC 3.56 L 3.10 L Hgb 10.3 L 9.1 L Hct 33.8 L 29.4 L MCHC 30.5 L RDW 16.1 H 16.1 H Neutrophils # 10.9 H 13.1 H Lymphocytes # 0.7 L PT INR ABG pH ABG pCO2 ABG HCO3 ABG Total CO2 ABG O2 Saturation Sodium 133 L Potassium 5.4 H Carbon Dioxide 21 L BUN 45 H Creatinine 2.48 H Glucose 117 H Calcium 8.0 L Total Protein Albumin 10/20/16 10/21/16 10/21/16 19:51 07:35 07:35 WBC RBC Hgb Hct MCHC RDW Neutrophils # Lymphocytes # PT 16.4 H INR 1.7 H ABG pH ABG pCO2 ABG HCO3 ABG Total CO2 ABG O2 Saturation Sodium 133 L Potassium 5.2 H Carbon Dioxide 18 L BUN 50 H Creatinine 1.90 H Glucose 112 H Calcium 7.7 L Total Protein Albumin 10/21/16 10/21/16 07:35 09:20 WBC 14.9 H RBC 2.84 L Hgb 8.4 L Hct 26.8 L MCHC RDW Neutrophils # 13.0 H Lymphocytes # 0.8 L PT INR ABG pH 7.53 H ABG pCO2 21 L ABG HCO3 17 L ABG Total CO2 18 L ABG O2 Saturation 98.0 H Sodium Potassium Carbon Dioxide BUN Creatinine Glucose Calcium Total Protein Albumin - Diagnostic Findings Chest x-ray: image reviewed (Chest x-ray labs and medications are all reviewed.) Assessment and Plan (1) Hypoxemia Status: Acute (2) Atrial fibrillation Status: Acute (3) Hypertension Status: Acute (4) COPD (chronic obstructive pulmonary disease) Status: Acute (5) EtOH dependence Status: Acute (6) Fracture, intertrochanteric, right femur Status: Acute (7) Cerebrovascular accident Status: Acute Plan: Plan dated 10/21/2016 The patient's labs x-rays a medications will all be reviewed. I probably will send him for CTA to rule out PE. The patient will have some additional medications ordered for underlying possible COPD. In addition, with her to figure out how much he drinks because that may be a problem i.e. alcohol withdrawal syndrome. I may move him to the ICU for further observation. Additional recommendations and suggestions are forthcoming. Prognosis is guarded. Time with Patient: Greater than 30
[2016-10-21] MEDS: METOPROLOL TARTRATE 50 MG TAB PO SCH ×2 (11:23→20:45)
[2016-10-21 11:46] LABS: Glucose,Whole Blood 154 mg/dL (75-99)
--- NOTE | 2016-10-21 11:54 | P.PN ---
Progress Note - Text Patient is a pleasant 81-year-old male who is seen and examined at bedside for follow-up evaluation after undergoing right intertrochanteric nail fixation performed by Dr. Raya yesterday, 10/20/2016. Patient states he does continue to have some pain in the right hip. Nursing currently states patient has been having some difficulty with his pulse ox levels which have been reading between 88-92. His saturation was dropping significantly without the use of an oxygen bag. ABGs showed O2 saturation at 98. He has been experiencing some labored and some unlabored breathing. Patient has been discussed in detail with medicine and Dr. Segal in pulmonology. Per orders by Dr. Segal, patient is currently being transferred to the ICU. Medicine to manage anticoagulation therapy. Patient was on Coumadin at home. Physical Exam Intramedullary [place] for Intertrochanteric Fracture: Status post surgical day number 1 Patient is examined hitting up in bed Patient is awake and alert, and oriented 3 Patient is having some labored and some unlabored breathing; currently using an oxygen bag Abdomen soft nontender No signs or symptoms of DVT; no calf pain Lower extremity cuffs in place bilaterally Dressing of the right hip is clean, dry, and intact; no erythema, purulence, or signs of infection Full range of motion of ankles bilaterally Dorsiflexion, plantarflexion, and extensor hallucis longus positive sustained bilaterally Neurovascularly intact bilateral lower extremities Assessment: Status post right intertrochanteric nail fixation for intertrochanteric hip fracture Alcohol dependence Labored and unlabored breathing with difficulty maintaining appropriate O2 saturation levels Plan: 1. Patient to remain nonweightbearing on the right lower extremity; patient may work with physical therapy to increase mobility and ambulation 2. Continue pain control 3. Medicine to continue following the patient for his other medical issues; medicine to continue with anticoagulation therapy 4. Dr. Segal in pulmonology will continue to follow the patient for further evaluation and treatment for his difficulties with labored breathing and difficulties with maintaining appropriate O2 saturation levels 5. We'll continue to follow the patient 6. Patient will more than likely remain in the hospital over the weekend with plans to discharge to rehab facility early next once cleared by medicine and Pulmonology 7. Patient can follow-up with Dr. Raya at [facility] in 2-3 weeks following discharge
[2016-10-21] MEDS: amLODIPine 10 MG TAB PO SCH (13:46)
[2016-10-21] MEDS: NICOTINE 14MG/24HR PATCH TRANSDERM SCH (13:46)
--- NOTE | 2016-10-21 14:07 | FL ---
Fluoroscopy INDICATION: Pain FINDINGS: Fluoroscopy time: 58 seconds. Images obtained: 3. IMPRESSIONS: 1. Documentation of fluoroscopy.
[2016-10-21] MEDS: PANTOPRAZOLE 40 MG/10 ML VIAL IVP SCH (15:34)
[2016-10-21] MEDS: THIAMINE 100 MG TAB PO SCH ×2 (15:34→18:09)
[2016-10-21] MEDS: methylPREDNISolone SOD SUCCI 40 MG/ML 1 ML VIAL IV SCH ×2 (16:52→18:07)
[2016-10-21] MEDS: AZITHROMYCIN 500 MG TAB PO SCH (16:52)
[2016-10-21] MEDS: FORMOTEROL FUMARATE 20 MCG/2 ML NEBU INHALATION SCH (19:38)
--- NOTE | 2016-10-21 19:54 | P.PN ---
Subjective Date of service 10/20/2016 Progress note being dictated for Dr. Rebollar Interval history: This is an 81-year-old gentleman admitted with right-sided hip fracture secondary to mechanical fall, in a patient with history of atrial fibrillation, legally blind, alcohol abuse and multiple other medical issues. Evaluated by orthopedics and surgery pending. Received vitamin K yesterday, INR currently 2.3 and received another dose of vitamin K. Mildly hyperkalemic at 5.4, Kayexalate ordered. Worsened renal function, creatinine 2.48. Sodium 133. Denies chest pain, palpitations or increasing shortness of breath. Objective - Vital Signs Vital signs: Vital Signs Temp 98.9 F 10/20/16 17:32 Pulse 98 10/20/16 21:45 Resp 20 10/20/16 18:17 BP 126/78 10/20/16 18:17 Pulse Ox 95 10/20/16 18:17 Intake & Output 10/20/16 10/20/16 10/21/16 06:59 18:59 06:59 Intake Total 770 1200 Output Total 1342 480 Balance -572 720 Intake: IV 720 1200 Sodium Chloride 0.9% 1, 600 500 000 ml @ 100 mls/hr IV . Q10H MAX Rx#:[id number] Sodium Chloride 0.9% 1, 120 000 ml @ 20 mls/hr IV . Q24H MAX Rx#:[id number] Oral 50 Output: Urine 640 380 Uretheral ([place]) 640 Post Void Residual 702 Estimated Blood Loss 100 Other: Voiding Method Indwelling Catheter Indwelling Catheter - Exam GENERAL: Sitting up in bed, alert and oriented 3, no acute distress HEENT: Conjunctivae normal. eyes normal. NECK: No JVD. No thyroid enlargement. No LNs CARDIOVASCULAR: S1, S2 muffled. No murmur, rub or gallop RESPIRATION: Breath sounds diminished in the bases. No rhonchi or crackles. No bronchial breathing. ABDOMEN: Soft, nontender . No guarding. no masses palpable. No ascites, No hepatosplenomegaly.Bowel sounds heard. NERVOUS SYSTEM: Cranial N 2-12 grossly normal. Diffuse weakness No focal deficits. Skin: no ulcer no rash Lymphatic system. No LN neck axilla or groin. - Labs CBC & Chem 7: 10/21/16 07:35 10/21/16 07:35 Labs: Abnormal Lab Results - Last 24 Hours (Table) 10/20/16 10/20/16 10/20/16 Range/Units 06:51 06:51 06:51 WBC 13.2 H (3.8-10.6) k/uL RBC 3.56 L (4.30-5.90) m/uL Hgb 10.3 L (13.0-17.5) gm/dL Hct 33.8 L (39.0-53.0) % MCHC 30.5 L (31.0-37.0) g/dL RDW 16.1 H (11.5-15.5) % Neutrophils # 10.9 H (1.3-7.7) k/uL Lymphocytes # (1.0-4.8) k/uL PT 22.2 H (9.0-12.0) sec INR 2.3 H (<1.2) Sodium 133 L (137-145) mmol/L Potassium 5.4 H (3.5-5.1) mmol/L Carbon Dioxide 21 L (22-30) mmol/L BUN 45 H (9-20) mg/dL Creatinine 2.48 H (0.66-1.25) mg/dL Glucose 117 H (74-99) mg/dL Calcium 8.0 L (8.4-10.2) mg/dL 10/20/16 10/20/16 Range/Units 19:51 19:51 WBC 14.9 H (3.8-10.6) k/uL RBC 3.10 L (4.30-5.90) m/uL Hgb 9.1 L (13.0-17.5) gm/dL Hct 29.4 L (39.0-53.0) % MCHC (31.0-37.0) g/dL RDW 16.1 H (11.5-15.5) % Neutrophils # 13.1 H (1.3-7.7) k/uL Lymphocytes # 0.7 L (1.0-4.8) k/uL PT (9.0-12.0) sec INR (<1.2) Sodium (137-145) mmol/L Potassium 5.2 H (3.5-5.1) mmol/L Carbon Dioxide (22-30) mmol/L BUN (9-20) mg/dL Creatinine (0.66-1.25) mg/dL Glucose (74-99) mg/dL Calcium (8.4-10.2) mg/dL Assessment and Plan Plan: 1. Right-sided hip fracture secondary to mechanical fall 2. Chronic, persistent Atrial fibrillation, 3. Legal blindness 4. Alcohol abuse 5. Hyperkalemia 6. Acute renal failure #7 hyponatremia, probably hypovolemic Plan: Continue on current medication regime ,monitoring and symptomatic treatment. Kayexalate ordered. IV fluids increased . Close monitoring of electrolytes and renal function with repeat labs ordered for a.m. vitamin K ordered. Orthopedic surgery pending. Further recommendations to follow. The impression and plan of care has been dictated as directedas maribell arceo Dr.: I performed a H&P examination of this patient and discussed the same with the dictator. I agree with the dictator's note. Any additional findings/opinions/ etc. will be noted.
[2016-10-22] MEDS: SODIUM CHLORIDE 0.9% 1,000 ML IV SCH ×3 (02:05→23:56)
[2016-10-22] MEDS: methylPREDNISolone SOD SUCCI 40 MG/ML 1 ML VIAL IV SCH ×5 (02:41→23:58)
[2016-10-22 04:49] LABS: Basophils % (A) 0 %; CH 29.2; CHCM 32.3; Eosinophils % (A) 0 %; HCT 23.4 % (39.0-53.0); HDW 2.63; HGB 7.6 gm/dL (13.0-17.5); Luc # (Auto) 0.07; Luc % (Auto) 1; Lymphocytes # (A) 0.6 k/uL (1.0-4.8); Lymphocytes % (A) 6 %; MCH 29.6 pg (25.0-35.0); MCHC 32.6 g/dL (31.0-37.0); MCV 90.8 fL (80.0-100.0); Mean Platelet Volume 8.4; Monocytes # (A) 0.3 k/uL (0-1.0); Monocytes % (A) 3 %; Neutrophils # (A) 8.1 k/uL (1.3-7.7); Neutrophils % (A) 90 %; RBC 2.57 m/uL (4.30-5.90); RDW 15.9 % (11.5-15.5); WBC 9.1 k/uL (3.8-10.6); WBC (Perox) 9.76
[2016-10-22 05:05] LABS: INR 1.1 (<1.2); Prothrombin Time 10.9 sec (9.0-12.0)
[2016-10-22 05:06] LABS: Calcium 7.9 mg/dL (8.4-10.2); Potassium 4.2 mmol/L (3.5-5.1)
[2016-10-22] MEDS: BUDESONIDE 1 MG/2 ML NEBU INHALATION SCH ×2 (08:11→19:47)
[2016-10-22] MEDS: FORMOTEROL FUMARATE 20 MCG/2 ML NEBU INHALATION SCH ×2 (08:11→19:47)
[2016-10-22] MEDS: IPRATROPIUM-ALBUTEROL 3 ML NEB INHALATION SCH ×4 (08:11→19:47)
[2016-10-22] MEDS: LACTATED RINGERS 1,000 ML IV SCH ×2 (09:03→17:01)
[2016-10-22] MEDS: amLODIPine 10 MG TAB PO SCH (09:05)
[2016-10-22] MEDS: METOPROLOL TARTRATE 50 MG TAB PO SCH ×2 (09:05→20:22)
[2016-10-22] MEDS: AZITHROMYCIN 500 MG TAB PO SCH (09:06)
[2016-10-22] MEDS: NICOTINE 14MG/24HR PATCH TRANSDERM SCH (09:06)
[2016-10-22] MEDS: PANTOPRAZOLE 40 MG/10 ML VIAL IVP SCH (09:06)
--- NOTE | 2016-10-22 09:40 | P.PN ---
Subjective Progress note dated 10/22/2016 This is an 81-year-old male who was I was asked to see yesterday. He apparently fell while at home and he fractured his right hip. He apparently has poor vision and falls frequently. His right hip fracture was repaired by one of the orthopedic surgeons a couple days ago. The patient apparently started having some issues with his breathing and saturations overnight. For this reason I was consulted. I saw the patient yesterday morning. Although I was not sure exactly what was going on with him, it appeared to me that he was having some respiratory distress although he denied everything. He states he was not short of breath. His chest x-ray suggests bibasilar infiltrates and/or atelectasis. The patient was placed on high flow O2 and I decided to transfer him to the ICU for further evaluation and observation. The patient still is not complaining of being short of breath. Not a particularly good historian. He apparently is a heavy drinker though we are concerned also about the possibility of alcohol withdrawal syndrome. His medical history includes among other things atrial fibrillation CVA hypertension DJD poor vision benign prostatic hypertrophy anemia and ileus. Objective - Vital Signs Vital signs: Vital Signs Temp 97.8 F 10/22/16 04:00 Pulse 90 10/22/16 08:41 Resp 14 10/22/16 08:12 BP 119/61 10/22/16 07:00 Pulse Ox 100 10/22/16 07:00 Intake & Output 10/21/16 10/22/16 10/22/16 18:59 06:59 18:59 Intake Total 750 1300 Output Total 1265 885 Balance -515 415 Weight 85.6 kg Intake: IV 750 1300 Lactated Ringers 1,000 ml 600 1300 @ 100 mls/hr IV .Q10H MAX Rx#:[id number] Sodium Chloride 0.9% 1, 150 000 ml @ 100 mls/hr IV . Q10H MAX Rx#:[id number] Output: Urine 1265 885 Other: Voiding Method Indwelling Catheter Indwelling Catheter # Bowel Movements 1 - Exam No acute distress, somewhat lethargic but arouses. Does answer appropriately. HEENT examination is grossly unremarkable. Mucous membranes are moist. Neck supple. Full range of motion. No adenopathy or thyromegaly. Neck veins are flat. Cardiovascular examination reveals distant heart sounds. S1-S2 normal. No S3- S4 or murmur. Bibasilar crackles. No wheezes. A few scattered rhonchi. Exam is pretty benign though. Abdomen soft bowel sounds are heard. Extremities are intact. No cyanosis clubbing or edema. Skin without rash. Neurologic examination is nonfocal. - Labs CBC & Chem 7: 10/22/16 03:52 10/22/16 03:52 Labs: Abnormal Lab Results - Last 24 Hours (Table) 10/21/16 10/21/16 10/22/16 Range/Units 09:20 11:43 03:52 RBC (4.30-5.90) m/uL Hgb (13.0-17.5) gm/dL Hct (39.0-53.0) % RDW (11.5-15.5) % Neutrophils # (1.3-7.7) k/uL Lymphocytes # (1.0-4.8) k/uL ABG pH 7.53 H (7.35-7.45) ABG pCO2 21 L (35-45) mmHg ABG HCO3 17 L (21-25) mmol/L ABG Total CO2 18 L (19-24) mmol/L ABG O2 Saturation 98.0 H (94-97) % Sodium 132 L (137-145) mmol/L Carbon Dioxide 21 L (22-30) mmol/L BUN 52 H (9-20) mg/dL Creatinine 1.80 H (0.66-1.25) mg/dL Glucose 153 H (74-99) mg/dL POC Glucose (mg/dL) 154 H (75-99) mg/dL Calcium 7.9 L (8.4-10.2) mg/dL 10/22/16 Range/Units 03:52 RBC 2.57 L (4.30-5.90) m/uL Hgb 7.6 L (13.0-17.5) gm/dL Hct 23.4 L (39.0-53.0) % RDW 15.9 H (11.5-15.5) % Neutrophils # 8.1 H (1.3-7.7) k/uL Lymphocytes # 0.6 L (1.0-4.8) k/uL ABG pH (7.35-7.45) ABG pCO2 (35-45) mmHg ABG HCO3 (21-25) mmol/L ABG Total CO2 (19-24) mmol/L ABG O2 Saturation (94-97) % Sodium (137-145) mmol/L Carbon Dioxide (22-30) mmol/L BUN (9-20) mg/dL Creatinine (0.66-1.25) mg/dL Glucose (74-99) mg/dL POC Glucose (mg/dL) (75-99) mg/dL Calcium (8.4-10.2) mg/dL Assessment and Plan (1) Hypoxemia Status: Acute (2) Atrial fibrillation Status: Acute (3) Hypertension Status: Acute (4) COPD (chronic obstructive pulmonary disease) Status: Acute (5) EtOH dependence Status: Acute (6) Fracture, intertrochanteric, right femur Status: Acute (7) Cerebrovascular accident Status: Acute Plan: Plan dated 10/21/2016 The patient's labs x-rays a medications will all be reviewed. I probably will send him for CTA to rule out PE. The patient will have some additional medications ordered for underlying possible COPD. In addition, with her to figure out how much he drinks because that may be a problem i.e. alcohol withdrawal syndrome. I may move him to the ICU for further observation. Additional recommendations and suggestions are forthcoming. Prognosis is guarded. Plan dated 10/22/2016 The patient's currently on 6 L high flow. The patient's IV is lactated Ringer' s at 100 mL an hour. Chest x-ray does show what appears to be some bibasilar infiltrates or atelectasis. Possible aspiration. We'll make sure the patient' s labs x-rays a medications are all reviewed. Likely put him on some updrafts and also make sure he is on some antibiotics. He continues to show improvement he may be able to titrate be transferred back down to the third floor. Additional recommendations and suggestions are forthcoming. Prognosis is guarded though. We'll continue to follow closely. Time with Patient: Greater than 30
[2016-10-22 09:55] LABS: ABG HCO3 18 mmol/L (21-25); ABG PCO2 22 mmHg (35-45); ABG PH 7.52 (7.35-7.45); ABG PO2 56 mmHg (83-108); ABG TCO2 19 mmol/L (19-24)
[2016-10-22] MEDS: HYDROmorphone 1 MG/ML 1 ML SYRINGE IVP PRN (09:55)
[2016-10-22 09:56] LABS: ABG Base Excess -4.6 mmol/L
--- NOTE | 2016-10-22 10:23 | P.PN ---
Progress Note - Text Patient is a pleasant 81-year-old male who is seen and examined at bedside in the ICU for follow-up evaluation after undergoing right intertrochanteric nail fixation performed by Dr. Raya 10/20/2016. Is being seen and examined yesterday, patient has had some improvement. He was transferred to the ICU after he was found to be hypoxic. He continues to receive O2 nasal cannula with 6 L of oxygen. He has had some improvement but will remain in the ICU today. If he continues to improve, Dr. Segal may transfer him back to the third floor. Since being transferred to the ICU, anticoagulation has not been resumed by medicine. We'll plan to resume Coumadin 5 mg today. Patient also states he continues to have pain at the right hip. He is known have degenerative changes lumbar spine. Patient and his family states he takes Florence 10 mg/325 mg 1 tab every 8 hours for pain control in the outpatient setting. We will plan to resume this medication while discontinuing tramadol. Appropriate prescription for pain medication will be discussed prior to discharge. Physical Exam Intramedullary Rodding for Intertrochanteric Fracture: Status post surgical day number 2 Patient is examined hitting up in bed Patient is awake and alert, and oriented 3 Evidence of adequate chest excursion with inspiration and expiration; currently on O2 nasal cannula receiving 6 L of oxygen Abdomen soft nontender No signs or symptoms of DVT; no calf pain Lower extremity cuffs in place bilaterally Dressing of the right hip is clean, dry, and intact; no erythema, purulence, or signs of infection; some evidence of dried drainage and dried blood at the incision sites Full range of motion of ankles bilaterally Dorsiflexion, plantarflexion, and extensor hallucis longus positive sustained bilaterally Neurovascularly intact bilateral lower extremities Assessment: Status post right intertrochanteric nail fixation for intertrochanteric hip fracture Alcohol dependence Hypoxia Atrial fibrillation Plan: 1. Patient to remain nonweightbearing on the right lower extremity; patient may work with physical therapy to increase mobility and ambulation 2. Continue pain control; will plan to discontinue tramadol; will start Florence 10 mg/325 mg 1 tab every 8 hours as needed for pain 3. Medicine to continue following the patient for his other medical issues; medicine to continue with anticoagulation therapy; medicine did not resume anticoagulation therapy yesterday, as we'll plan to resume Coumadin 5 mg as prescribed for home dosing with serial PT INR lab draws 4. Dr. Segal in pulmonology will continue to follow the patient for further evaluation and treatment for hypoxia 5. We'll continue to follow the patient 6. Patient will more than likely remain in the hospital over the weekend with plans to discharge to rehab facility early next once cleared by medicine and Pulmonology 7. Patient can follow-up with Dr. Raya at [facility] in 2-3 weeks following discharge
[2016-10-22 12:31] LABS: Creatine Kinase MB 3.7 ng/mL (0.0-2.4); Troponin I 0.107 ng/mL (0.000-0.034)
[2016-10-22] MEDS: THIAMINE 100 MG TAB PO SCH ×2 (13:10→17:00)
[2016-10-22] MEDS: HYDROcodone/APAP 10-325MG 1 EACH TAB PO PRN ×2 (13:10→20:21)
--- NOTE | 2016-10-22 13:22 | NM ---
EXAMINATION TYPE: NM pul vent and perfuse DATE OF EXAM: 10/22/2016 COMPARISON: Chest radiograph dated 10/21/2016 HISTORY: Shortness of breath TECHNIQUE: Utilizing inhalation of 71.5 mCi Tc 99m DTPA aerosol and intravenous injection of 5.5 mCi of Tc 99m MAA, ventilation and perfusion images are acquired post injection in multiple projections. FINDINGS: Triple matched defects are seen within the right middle lobe, right lung base, and posterior left low er lobe. Air-trapping is seen within the lung apices from known underlying COPD. Unequal distribution of radiotracer is noted, which is also likely related to areas of air trapping from COPD. There is n o evidence of mismatched defects. IMPRESSION: Low probability for pulmonary embolus. Triple matched defects corresponding to the known airspace dis ease within the right middle lobe, right lower lobe, and left lower lobe. Numerous regions of air tra pping from the known underlying COPD.
[2016-10-22] MEDS ORDERED: Magnesium Replacement Protocol 1 EACH MISC MISCELLANE PRN (13:34)
--- NOTE | 2016-10-22 13:43 | XR ---
EXAMINATION TYPE: XR chest 1V portable DATE OF EXAM: 10/22/2016 COMPARISON: 10/21/2016. HISTORY: Pneumonia TECHNIQUE: Single frontal view of the chest is obtained. FINDINGS: Focal air space disease is improving within the right lower lobe the worsening within the retrocardiac airspace. Known underlying COPD is present with biapical lucency. Questionable left apic al pneumothorax is present, however lung markings appear to be visible beyond the periphery of the cr escentic linear density and therefore inspiratory and expiratory images are recommended for reevaluat ion. IMPRESSION: 1. Crescentic density in the left apex that could represent a pneumothorax, however lung markings radhika ear to be present beyond this and therefore this also could relate to skinfold. Inspiratory and excre tory imaging is recommended for further evaluation. 2. Improving right basilar airspace disease and worsening retrocardiac pneumonia.
--- NOTE | 2016-10-22 16:09 | P.PN ---
Subjective Progress note being dictated for Dr. Aiken Interval history: This is an 81-year-old gentleman admitted with right-sided hip fracture secondary to mechanical fall, in a patient with history of atrial fibrillation, legally blind, alcohol abuse and multiple other medical issues. Evaluated by orthopedics and surgery pending. Received vitamin K yesterday, INR currently 2.3 and received another dose of vitamin K. Mildly hyperkalemic at 5.4, Kayexalate ordered. Worsened renal function, creatinine 2.48. Sodium 133. Denies chest pain, palpitations or increasing shortness of breath. 10/21/2016 status post right intertrochanteric nail fixation for hip fracture POD #1. Complaining of right hip pain. Desatted with labored breathing, though states not short of breath.Received Lasix, nebulized bronchodilators and placed on a nonrebreather initially. Chest x-ray reported bilateral areas of infiltrate and tiny effusion, underlying COPD. evaluated by Dr. Segal, transferred to ICU. Hemoglobin 8.4. Renal function improving. Unable to perform review of systems as patient with vague historian, currently doesn't remember he had surgery yesterday. Active Medications Hydrocodone Bitart/Acetaminophen (Vance 10) 1 each PO Q8H PRN PRN Reason: Pain Last Admin: 10/22/16 13:10 Dose: 1 each Albuterol/Ipratropium (Duoneb 0.5 Mg-3 Mg/3 Ml Soln) 3 ml INHALATION RT-QID [facility] Last Admin: 10/22/16 11:59 Dose: Not Given Amlodipine Besylate (Norvasc) 10 mg PO DAILY [facility] Last Admin: 10/22/16 09:05 Dose: 10 mg Aspirin (Aspirin) 81 mg PO DAILY [facility] Atorvastatin Calcium (Lipitor) 40 mg PO DAILY [facility] Azithromycin (Zithromax) 500 mg PO DAILY [facility] Last Admin: 10/22/16 09:06 Dose: 500 mg Budesonide (Pulmicort) 1 mg INHALATION RT-BID [facility] Last Admin: 10/22/16 08:11 Dose: 1 mg Formoterol Fumarate (Perforomist) 20 mcg INHALATION RT-BID [facility] Last Admin: 10/22/16 08:11 Dose: 20 mcg Hydromorphone HCl (Dilaudid) 1 mg IVP Q3HR PRN PRN Reason: Pain Last Admin: 10/20/16 04:04 Dose: 1 mg Hydromorphone HCl (Dilaudid) 0.125 mg IVP Q3HR PRN PRN Reason: Pain Scale 1 to 3 Hydromorphone HCl (Dilaudid) 0.25 mg IVP Q3HR PRN PRN Reason: Pain Scale 4 to 6 Last Admin: 10/22/16 09:55 Dose: 0.25 mg Hydromorphone HCl (Dilaudid) 0.5 mg IVP Q3HR PRN PRN Reason: Pain Scale 7 to 10 Hydroxyzine Pamoate (Vistaril) 25 mg PO Q4HR PRN PRN Reason: Mild Nausea and/or Anxiety Sodium Chloride (Saline 0.9%) 1,000 mls @ 100 mls/hr IV .Q10H [facility] Last Admin: 10/22/16 13:10 Dose: Not Given Lactated Ringer's (Lactated Ringers) 1,000 mls @ 100 mls/hr IV .Q10H [facility] Last Admin: 10/22/16 09:03 Dose: 100 mls/hr Lorazepam (Ativan) 1 mg IV Q2HR PRN PRN Reason: CIWA 8 or 9 Lorazepam (Ativan) 1 mg IV Q1HR PRN PRN Reason: CIWA 10 to 15 Lorazepam (Ativan) 2 mg IV Q10M PRN PRN Reason: CIWA 16 or higher Stop: 10/26/16 09:16 Magnesium Hydroxide (Milk Of Magnesia) 2,400 mg PO DAILY PRN PRN Reason: Constipation Methylprednisolone Sodium Succinate (Solu-Medrol) 40 mg IV Q6HR [facility] Last Admin: 10/22/16 13:10 Dose: 40 mg Metoprolol Tartrate (Lopressor) 50 mg PO BID [facility] Last Admin: 10/22/16 09:05 Dose: 50 mg Miscellaneous Information (Magnesium Per Protocol) 1 each MISCELLANE DAILY PRN ; Protocol PRN Reason: Per Protocol Naloxone HCl (Narcan) 0.2 mg IV Q2M PRN PRN Reason: Opioid Reversal Nicotine (Habitrol 14mg/24hr Patch) 1 patch TRANSDERM DAILY [facility] Last Admin: 10/22/16 09:06 Dose: 1 patch Ondansetron HCl (Zofran) 4 mg IVP Q6HR PRN PRN Reason: Nausea And Vomiting Pantoprazole Sodium (Protonix) 40 mg IVP DAILY [facility] Last Admin: 10/22/16 09:06 Dose: 40 mg Senna/Docusate Sodium (Senokot-S) 2 each PO HS [facility] Last Admin: 10/21/16 20:45 Dose: 2 each Thiamine HCl (Vitamin B-1) 100 mg PO BID@1200,1700 [facility] Last Admin: 10/22/16 13:10 Dose: 100 mg Warfarin Sodium (Coumadin) 5 mg PO DAILY@1800 [facility] Objective - Vital Signs Vital signs: Vital Signs Temp 98.2 F 10/21/16 16:00 Pulse 89 10/21/16 19:41 Resp 16 10/21/16 18:00 BP 109/62 10/21/16 18:00 Pulse Ox 92 L 10/21/16 18:00 Intake & Output 10/21/16 10/21/16 10/22/16 06:59 18:59 06:59 Intake Total 800 750 Output Total 550 1265 Balance 250 -515 Intake: IV 800 750 Lactated Ringers 1,000 ml 600 @ 100 mls/hr IV .Q10H [facility] Rx#:[id number] Sodium Chloride 0.9% 1, 800 150 000 ml @ 100 mls/hr IV . Q10H [facility] Rx#:[id number] Oral 0 Output: Urine 550 1265 Other: Voiding Method Indwelling Catheter Indwelling Catheter # Bowel Movements 1 1 - Exam GENERAL: Sitting up in bed, alert and oriented 3, no acute distress HEENT: Conjunctivae normal. Oral mucosa moist. NECK: No JVD. No thyroid enlargement. No LNs CARDIOVASCULAR: S1, S2 muffled. No murmur, rub or gallop RESPIRATION: Respiratory effort mildly increased, Breath sounds diminished in the bases. No rhonchi or crackles. No bronchial breathing. ABDOMEN: Soft, nontender . No guarding. no masses palpable. No ascites, No hepatosplenomegaly.Bowel sounds heard. NERVOUS SYSTEM: Cranial N 2-12 grossly normal. Diffuse weakness No focal deficits. Skin: no ulcer no rash Lymphatic system. No LN neck axilla or groin. - Labs CBC & Chem 7: 10/22/16 03:52 10/22/16 03:52 Labs: Abnormal Lab Results - Last 24 Hours (Table) 10/20/16 10/20/16 10/21/16 Range/Units 19:51 19:51 07:35 WBC 14.9 H (3.8-10.6) k/uL RBC 3.10 L (4.30-5.90) m/uL Hgb 9.1 L (13.0-17.5) gm/dL Hct 29.4 L (39.0-53.0) % RDW 16.1 H (11.5-15.5) % Neutrophils # 13.1 H (1.3-7.7) k/uL Lymphocytes # 0.7 L (1.0-4.8) k/uL PT 16.4 H (9.0-12.0) sec INR 1.7 H (<1.2) ABG pH (7.35-7.45) ABG pCO2 (35-45) mmHg ABG HCO3 (21-25) mmol/L ABG Total CO2 (19-24) mmol/L ABG O2 Saturation (94-97) % Sodium (137-145) mmol/L Potassium 5.2 H (3.5-5.1) mmol/L Carbon Dioxide (22-30) mmol/L BUN (9-20) mg/dL Creatinine (0.66-1.25) mg/dL Glucose (74-99) mg/dL POC Glucose (mg/dL) (75-99) mg/dL Calcium (8.4-10.2) mg/dL 10/21/16 10/21/16 10/21/16 Range/Units 07:35 07:35 09:20 WBC 14.9 H (3.8-10.6) k/uL RBC 2.84 L (4.30-5.90) m/uL Hgb 8.4 L (13.0-17.5) gm/dL Hct 26.8 L (39.0-53.0) % RDW (11.5-15.5) % Neutrophils # 13.0 H (1.3-7.7) k/uL Lymphocytes # 0.8 L (1.0-4.8) k/uL PT (9.0-12.0) sec INR (<1.2) ABG pH 7.53 H (7.35-7.45) ABG pCO2 21 L (35-45) mmHg ABG HCO3 17 L (21-25) mmol/L ABG Total CO2 18 L (19-24) mmol/L ABG O2 Saturation 98.0 H (94-97) % Sodium 133 L (137-145) mmol/L Potassium (3.5-5.1) mmol/L Carbon Dioxide 18 L (22-30) mmol/L BUN 50 H (9-20) mg/dL Creatinine 1.90 H (0.66-1.25) mg/dL Glucose 112 H (74-99) mg/dL POC Glucose (mg/dL) (75-99) mg/dL Calcium 7.7 L (8.4-10.2) mg/dL 10/21/16 Range/Units 11:43 WBC (3.8-10.6) k/uL RBC (4.30-5.90) m/uL Hgb (13.0-17.5) gm/dL Hct (39.0-53.0) % RDW (11.5-15.5) % Neutrophils # (1.3-7.7) k/uL Lymphocytes # (1.0-4.8) k/uL PT (9.0-12.0) sec INR (<1.2) ABG pH (7.35-7.45) ABG pCO2 (35-45) mmHg ABG HCO3 (21-25) mmol/L ABG Total CO2 (19-24) mmol/L ABG O2 Saturation (94-97) % Sodium (137-145) mmol/L Potassium (3.5-5.1) mmol/L Carbon Dioxide (22-30) mmol/L BUN (9-20) mg/dL Creatinine (0.66-1.25) mg/dL Glucose (74-99) mg/dL POC Glucose (mg/dL) 154 H (75-99) mg/dL Calcium (8.4-10.2) mg/dL Assessment and Plan Plan: 1. Right-sided hip fracture secondary to mechanical fall, status post surgical repair 2. Acute hypoxic respiratory failure 3. Acute COPD exacerbation 4. Chronic, persistent Atrial fibrillation, 5. Legal blindness 6. Alcohol abuse 7. Acute renal failure 8. hyponatremia, probably hypovolemic Plan: Continue on current medication regime ,monitoring and symptomatic treatment. Transferred to ICU for closer monitoring .VQ scan pending. Close monitoring of electrolytes and renal function with repeat labs ordered for a.m. vitamin K ordered. Prognosis guarded given multiple complex medical issues. Further recommendations to follow. The impression and plan of care has been dictated as directedas a adis Mcbride: I performed a H&P examination of this patient and discussed the same with the dictator. I agree with the dictator's note. Any additional findings/opinions/ etc. will be noted.
--- NOTE | 2016-10-22 16:18 | P.PN ---
Subjective Progress note being dictated for Dr. Aiken Interval history: This is an 81-year-old gentleman admitted with right-sided hip fracture secondary to mechanical fall, in a patient with history of atrial fibrillation, legally blind, alcohol abuse and multiple other medical issues. Evaluated by orthopedics and surgery pending. Received vitamin K yesterday, INR currently 2.3 and received another dose of vitamin K. Mildly hyperkalemic at 5.4, Kayexalate ordered. Worsened renal function, creatinine 2.48. Sodium 133. Denies chest pain, palpitations or increasing shortness of breath. 10/21/2016 status post right intertrochanteric nail fixation for hip fracture POD #1. Complaining of right hip pain. Desatted with labored breathing, though states not short of breath.Received Lasix, nebulized bronchodilators and placed on a nonrebreather initially. Chest x-ray reported bilateral areas of infiltrate and tiny effusion, underlying COPD. evaluated by Dr. Segal, transferred to ICU. Hemoglobin 8.4. Renal function improving. 10/22/16 maintained on antibiotics, nebulized bronchodilators. Slow improvement in respiratory function. Maintaining O2 sats of 91% on 5 L nasal cannula. Denies shortness of breath. VQ reporting low probability for PE, underlying COPD. chest x-ray noted. Maintained on CIWA protocol, possible early DTs. Unable to perform review of systems as patient with vague historian, currently doesn't remember he had surgery yesterday, confused. Active Medications Hydrocodone Bitart/Acetaminophen ([place] 10) 1 each PO Q8H PRN PRN Reason: Pain Last Admin: 10/22/16 13:10 Dose: 1 each Albuterol/Ipratropium (Duoneb 0.5 Mg-3 Mg/3 Ml Soln) 3 ml INHALATION RT-QID [facility] Last Admin: 10/22/16 11:59 Dose: Not Given Amlodipine Besylate (Norvasc) 10 mg PO DAILY [facility] Last Admin: 10/22/16 09:05 Dose: 10 mg Aspirin (Aspirin) 81 mg PO DAILY [facility] Atorvastatin Calcium (Lipitor) 40 mg PO DAILY [facility] Azithromycin (Zithromax) 500 mg PO DAILY [facility] Last Admin: 10/22/16 09:06 Dose: 500 mg Budesonide (Pulmicort) 1 mg INHALATION RT-BID [facility] Last Admin: 10/22/16 08:11 Dose: 1 mg Formoterol Fumarate (Perforomist) 20 mcg INHALATION RT-BID [facility] Last Admin: 10/22/16 08:11 Dose: 20 mcg Hydromorphone HCl (Dilaudid) 1 mg IVP Q3HR PRN PRN Reason: Pain Last Admin: 10/20/16 04:04 Dose: 1 mg Hydromorphone HCl (Dilaudid) 0.125 mg IVP Q3HR PRN PRN Reason: Pain Scale 1 to 3 Hydromorphone HCl (Dilaudid) 0.25 mg IVP Q3HR PRN PRN Reason: Pain Scale 4 to 6 Last Admin: 10/22/16 09:55 Dose: 0.25 mg Hydromorphone HCl (Dilaudid) 0.5 mg IVP Q3HR PRN PRN Reason: Pain Scale 7 to 10 Hydroxyzine Pamoate (Vistaril) 25 mg PO Q4HR PRN PRN Reason: Mild Nausea and/or Anxiety Sodium Chloride (Saline 0.9%) 1,000 mls @ 100 mls/hr IV .Q10H [facility] Last Admin: 10/22/16 13:10 Dose: Not Given Lactated Ringer's (Lactated Ringers) 1,000 mls @ 100 mls/hr IV .Q10H [facility] Last Admin: 10/22/16 09:03 Dose: 100 mls/hr Lorazepam (Ativan) 1 mg IV Q2HR PRN PRN Reason: CIWA 8 or 9 Lorazepam (Ativan) 1 mg IV Q1HR PRN PRN Reason: CIWA 10 to 15 Lorazepam (Ativan) 2 mg IV Q10M PRN PRN Reason: CIWA 16 or higher Stop: 10/26/16 09:16 Magnesium Hydroxide (Milk Of Magnesia) 2,400 mg PO DAILY PRN PRN Reason: Constipation Methylprednisolone Sodium Succinate (Solu-Medrol) 40 mg IV Q6HR [facility] Last Admin: 10/22/16 13:10 Dose: 40 mg Metoprolol Tartrate (Lopressor) 50 mg PO BID [facility] Last Admin: 10/22/16 09:05 Dose: 50 mg Miscellaneous Information (Magnesium Per Protocol) 1 each MISCELLANE DAILY PRN ; Protocol PRN Reason: Per Protocol Naloxone HCl (Narcan) 0.2 mg IV Q2M PRN PRN Reason: Opioid Reversal Nicotine (Habitrol 14mg/24hr Patch) 1 patch TRANSDERM DAILY [facility] Last Admin: 10/22/16 09:06 Dose: 1 patch Ondansetron HCl (Zofran) 4 mg IVP Q6HR PRN PRN Reason: Nausea And Vomiting Pantoprazole Sodium (Protonix) 40 mg IVP DAILY [facility] Last Admin: 10/22/16 09:06 Dose: 40 mg Senna/Docusate Sodium (Senokot-S) 2 each PO HS [facility] Last Admin: 10/21/16 20:45 Dose: 2 each Thiamine HCl (Vitamin B-1) 100 mg PO BID@1200,1700 [facility] Last Admin: 10/22/16 13:10 Dose: 100 mg Warfarin Sodium (Coumadin) 5 mg PO DAILY@1800 [facility] Objective - Vital Signs Vital signs: Vital Signs Temp 97.8 F 10/22/16 12:00 Pulse 82 10/22/16 14:00 Resp 17 10/22/16 14:00 BP 109/67 10/22/16 14:00 Pulse Ox 91 L 10/22/16 14:00 Intake & Output 10/21/16 10/22/16 10/22/16 18:59 06:59 18:59 Intake Total 750 1300 700 Output Total 1265 885 490 Balance -515 415 210 Weight 85.6 kg Intake: IV 750 1300 700 Lactated Ringers 1,000 ml 600 1300 700 @ 100 mls/hr IV .Q10H [facility] Rx#:[id number] Sodium Chloride 0.9% 1, 150 000 ml @ 100 mls/hr IV . Q10H [facility] Rx#:[id number] Output: Urine 1265 885 490 Other: Voiding Method Indwelling Catheter Indwelling Catheter Indwelling Catheter # Bowel Movements 1 - Exam GENERAL: Sitting up in bed, alert and oriented 3, no acute distress HEENT: Conjunctivae normal. Oral mucosa moist. NECK: No JVD. No thyroid enlargement. No LNs CARDIOVASCULAR: S1, S2 muffled. No murmur, rub or gallop RESPIRATION: Respiratory effort mildly increased, Breath sounds diminished in the bases with bibasilar crackles, no wheezing ABDOMEN: Soft, nontender . No guarding. no masses palpable. No ascites, No hepatosplenomegaly.Bowel sounds heard. NERVOUS SYSTEM: Cranial N 2-12 grossly normal. Diffuse weakness No focal deficits. Skin: no ulcer no rash Lymphatic system. No LN neck axilla or groin. - Labs CBC & Chem 7: 10/22/16 03:52 10/22/16 03:52 Labs: Abnormal Lab Results - Last 24 Hours (Table) 10/22/16 10/22/16 10/22/16 Range/Units 03:52 03:52 09:35 RBC 2.57 L (4.30-5.90) m/uL Hgb 7.6 L (13.0-17.5) gm/dL Hct 23.4 L (39.0-53.0) % RDW 15.9 H (11.5-15.5) % Neutrophils # 8.1 H (1.3-7.7) k/uL Lymphocytes # 0.6 L (1.0-4.8) k/uL ABG pH 7.52 H (7.35-7.45) ABG pCO2 22 L (35-45) mmHg ABG pO2 56 L (83-108) mmHg ABG HCO3 18 L (21-25) mmol/L ABG O2 Saturation 92.0 L (94-97) % Sodium 132 L (137-145) mmol/L Carbon Dioxide 21 L (22-30) mmol/L BUN 52 H (9-20) mg/dL Creatinine 1.80 H (0.66-1.25) mg/dL Glucose 153 H (74-99) mg/dL Calcium 7.9 L (8.4-10.2) mg/dL Total Creatine Kinase (55-170) U/L CK-MB (CK-2) (0.0-2.4) ng/mL Troponin I (0.000-0.034) ng/mL 10/22/16 Range/Units 11:25 RBC (4.30-5.90) m/uL Hgb (13.0-17.5) gm/dL Hct (39.0-53.0) % RDW (11.5-15.5) % Neutrophils # (1.3-7.7) k/uL Lymphocytes # (1.0-4.8) k/uL ABG pH (7.35-7.45) ABG pCO2 (35-45) mmHg ABG pO2 (83-108) mmHg ABG HCO3 (21-25) mmol/L ABG O2 Saturation (94-97) % Sodium (137-145) mmol/L Carbon Dioxide (22-30) mmol/L BUN (9-20) mg/dL Creatinine (0.66-1.25) mg/dL Glucose (74-99) mg/dL Calcium (8.4-10.2) mg/dL Total Creatine Kinase 400 H (55-170) U/L CK-MB (CK-2) 3.7 H* (0.0-2.4) ng/mL Troponin I 0.107 H* (0.000-0.034) ng/mL Assessment and Plan Plan: 1. Right-sided hip fracture secondary to mechanical fall, status post surgical repair 2. Acute hypoxic respiratory failure 3. Acute COPD exacerbation 4. Chronic, persistent Atrial fibrillation, 5. Legal blindness 6. Alcohol abuse, possible early DTs 7. Acute renal failure 8. hyponatremia, probably hypovolemic Plan: Continue on current medication regime ,monitoring and symptomatic treatment. Maintain CIWA protocol. Close monitoring of electrolytes and renal function with repeat labs ordered for a.m. Prognosis guarded given multiple complex medical issues. Further recommendations to follow. The impression and plan of care has been dictated as directedas a adis Mcbride: I performed a H&P examination of this patient and discussed the same with the dictator. I agree with the dictator's note. Any additional findings/opinions/ etc. will be noted.
[2016-10-22] MEDS: MAGNESIUM SULFATE-D5W PMX 1 GM in DEXTROSE/WATER 1 100ML.BAG IVPB SCH ×2 (17:00→19:29)
[2016-10-22] MEDS: WARFARIN 5 MG TAB PO SCH (17:00)
[2016-10-22] MEDS: ATORVASTATIN 40 MG TAB PO SCH (17:00)
[2016-10-22 18:54] LABS: Anisocytosis Slight; CH 29.2; CHCM 31.9; HCT 22.2 % (39.0-53.0); HDW 2.73; Hypochromasia Slight; MCH 29.2 pg (25.0-35.0); MCHC 31.7 g/dL (31.0-37.0); MCV 92.1 fL (80.0-100.0); Mean Platelet Volume 8.5; RBC 2.41 m/uL (4.30-5.90); RDW 16.2 % (11.5-15.5)
[2016-10-22 19:00] LABS: HGB 7.2 gm/dL (13.0-17.5)
[2016-10-22 19:12] LABS: Add Differential Manual Differential
[2016-10-22 19:14] LABS: Band Neutrophils % 3 %; Manual Review Performed; Myelocytes % 1 %; Nucleated Red Blood Cells 1 /100 WBC (0-0); Total Cells Counted 200; WBC 8.6 k/uL (3.8-10.6)
[2016-10-22 19:15] LABS: Polychromasia Present
[2016-10-22] MEDS: SENNOSIDES-DOCUSATE SODIUM 1 EACH TAB PO SCH (20:22)
[2016-10-23 04:58] LABS: Anisocytosis Slight; CH 28.9; CHCM 31.1; HDW 2.73; Hypochromasia Slight; MCH 29.9 pg (25.0-35.0); MCHC 31.9 g/dL (31.0-37.0); MCV 93.5 fL (80.0-100.0); Mean Platelet Volume 8.6; RBC 2.25 m/uL (4.30-5.90); RDW 16.4 % (11.5-15.5); WBC (Perox) 9.06
[2016-10-23 05:02] LABS: HGB 6.7 gm/dL (13.0-17.5)
[2016-10-23 05:06] LABS: Prothrombin Time 10.5 sec (9.0-12.0)
[2016-10-23 05:13] LABS: Calcium 8.3 mg/dL (8.4-10.2); Magnesium 2.5 mg/dL (1.6-2.3); Potassium 3.9 mmol/L (3.5-5.1)
[2016-10-23] MEDS ORDERED: POTASSIUM CHLORIDE ER 20 MEQ TAB.ER PO SCH (06:00)
[2016-10-23 06:13] LABS: Add Differential Manual Differential
[2016-10-23 06:16] LABS: Band Neutrophils % 2 %; Nucleated Red Blood Cells 3 /100 WBC (0-0); Total Cells Counted 200
[2016-10-23 06:17] LABS: Manual Review Performed; WBC 8.7 k/uL (3.8-10.6)
[2016-10-23 06:18] LABS: Polychromasia Present; Rouleaux Present
[2016-10-23] MEDS: SODIUM CHLORIDE 0.9% 1,000 ML IV SCH ×2 (07:09→14:28)
[2016-10-23] MEDS: methylPREDNISolone SOD SUCCI 40 MG/ML 1 ML VIAL IV SCH ×3 (07:09→18:15)
[2016-10-23] MEDS: LACTATED RINGERS 1,000 ML IV SCH ×2 (07:09→14:24)
[2016-10-23] MEDS: IPRATROPIUM-ALBUTEROL 3 ML NEB INHALATION SCH ×4 (07:13→21:29)
[2016-10-23] MEDS: FORMOTEROL FUMARATE 20 MCG/2 ML NEBU INHALATION SCH ×2 (07:13→21:28)
[2016-10-23] MEDS: BUDESONIDE 1 MG/2 ML NEBU INHALATION SCH ×2 (07:13→21:28)
[2016-10-23] MEDS: METOPROLOL TARTRATE 50 MG TAB PO SCH ×2 (10:15→22:07)
[2016-10-23] MEDS: ATORVASTATIN 40 MG TAB PO SCH (10:15)
[2016-10-23] MEDS: ASPIRIN 81 MG PO SCH (10:16)
[2016-10-23] MEDS: AZITHROMYCIN 500 MG TAB PO SCH (10:16)
[2016-10-23] MEDS: PANTOPRAZOLE 40 MG/10 ML VIAL IVP SCH (10:16)
[2016-10-23] MEDS: NICOTINE 14MG/24HR PATCH TRANSDERM SCH (10:17)
[2016-10-23] MEDS: amLODIPine 10 MG TAB PO SCH ×2 (10:17→10:28)
[2016-10-23] MEDS: HYDROcodone/APAP 10-325MG 1 EACH TAB PO PRN ×2 (10:21→16:17)
--- NOTE | 2016-10-23 11:59 | P.PN ---
Subjective This is an 81-year-old male. He apparently fell while at home and he fractured his right hip. He apparently has poor vision and falls frequently. His right hip fracture was repaired by one of the orthopedic surgeons a couple days ago, on 10/20/2016.. The patient apparently started having issues with his breathing and saturations overnight. For that reason, the patient was brought into the intensive care unit on 10/21/2016. The patient was seen in consultation by Dr Segal. The patient admitted that that he was having some respiratory distress although he denied everything else. His chest x-ray suggests bibasilar infiltrates and/or atelectasis. The patient was placed on high flow O2. His medical history includes among other things atrial fibrillation CVA hypertension DJD poor vision benign prostatic hypertrophy anemia and ileus. The patient also suffers from chronic renal failure. He is a chronic smoker. His troponins were minimally elevated with levels of 0.1, 0.0 0.5 respectively 3. His VQ scan was of a low probability. The patient had triple matched defects corresponding to airspace disease within the right middle lobe, right lower lobe and left lower lobe. I reviewed his chest x-rays postop and the patient has a right-sided fractures. Infiltration can be seen also on the lower lobes bilaterally. He has been maintained on oral Zithromax. He has remained afebrile throughout the hospitalization. The patient has also carotid artery disease that was confirmed back in 2014 by [facility] and the patient has approximately 50-69% stenosis of the left internal carotid artery. On 10/23/2016 the patient is on 4 L of oxygen by nasal cannula. He is not having any major respiratory distress. He is calm and comfortable. No reported aspiration. He is tolerating his diet fine and he swallows without any major difficulties. No chest pain. No fever. No chills. No night sweats. His morning hemoglobin was around 6.7. The patient was given a unit of packed RBC. Note that his admission hemoglobin was at 12.6. No evidence of any external GI bleeding. The surgical wound site is dry clean and intact. No evidence of any hematoma formation. The patient has no coagulopathy. He used to take Coumadin at home for chronic atrial fibrillation this was restarted yesterday. The PT/INR from this morning is 10.5 x 1.0 respectively. Objective - Vital Signs Vital signs: Vital Signs Temp 97.7 F 10/23/16 07:06 Pulse 92 10/23/16 11:23 Resp 18 10/23/16 11:00 BP 103/60 10/23/16 11:00 Pulse Ox 99 10/23/16 10:10 Intake & Output 10/22/16 10/23/16 10/23/16 18:59 06:59 18:59 Intake Total 1100 1200 1050 Output Total 790 675 200 Balance 310 525 850 Weight 85.4 kg Intake: IV 1100 1200 500 Lactated Ringers 1,000 ml 1100 1200 500 @ 100 mls/hr IV .Q10H [facility] Rx#:[id number] Oral 240 Blood Product 310 Rc As-1 Unit 310 [id number] Output: Urine 790 675 200 Other: Voiding Method Indwelling Catheter Indwelling Catheter Indwelling Catheter - Labs CBC & Chem 7: 10/23/16 03:57 10/23/16 03:57 Labs: Abnormal Lab Results - Last 24 Hours (Table) 10/22/16 10/22/16 10/22/16 Range/Units 11:25 18:24 18:24 RBC 2.41 L (4.30-5.90) m/uL Hgb 7.2 L (13.0-17.5) gm/dL Hct 22.2 L (39.0-53.0) % RDW 16.2 H (11.5-15.5) % Neutrophils # (Manual) 7.90 H (1.3-7.7) k/uL Lymphocytes # (Manual) 0.43 L (1.0-4.8) k/uL Myelocytes # (Manual) 0.09 H (0) k/uL Nucleated RBCs 1 H (0-0) /100 WBC Sodium (137-145) mmol/L Carbon Dioxide (22-30) mmol/L BUN (9-20) mg/dL Creatinine (0.66-1.25) mg/dL Glucose (74-99) mg/dL Calcium (8.4-10.2) mg/dL Magnesium (1.6-2.3) mg/dL Total Creatine Kinase 400 H (55-170) U/L CK-MB (CK-2) 3.7 H* (0.0-2.4) ng/mL Troponin I 0.107 H* 0.351 H* (0.000-0.034) ng/mL Crossmatch 10/22/16 10/23/16 10/23/16 Range/Units 22:40 03:57 03:57 RBC 2.25 L (4.30-5.90) m/uL Hgb 6.7 L* (13.0-17.5) gm/dL Hct 21.0 L (39.0-53.0) % RDW 16.4 H (11.5-15.5) % Neutrophils # (Manual) 8.00 H (1.3-7.7) k/uL Lymphocytes # (Manual) 0.44 L (1.0-4.8) k/uL Myelocytes # (Manual) (0) k/uL Nucleated RBCs 3 H (0-0) /100 WBC Sodium 132 L (137-145) mmol/L Carbon Dioxide 19 L (22-30) mmol/L BUN 60 H (9-20) mg/dL Creatinine 1.60 H (0.66-1.25) mg/dL Glucose 170 H (74-99) mg/dL Calcium 8.3 L (8.4-10.2) mg/dL Magnesium 2.5 H (1.6-2.3) mg/dL Total Creatine Kinase (55-170) U/L CK-MB (CK-2) (0.0-2.4) ng/mL Troponin I 0.564 H* (0.000-0.034) ng/mL Crossmatch 10/23/16 Range/Units 05:39 RBC (4.30-5.90) m/uL Hgb (13.0-17.5) gm/dL Hct (39.0-53.0) % RDW (11.5-15.5) % Neutrophils # (Manual) (1.3-7.7) k/uL Lymphocytes # (Manual) (1.0-4.8) k/uL Myelocytes # (Manual) (0) k/uL Nucleated RBCs (0-0) /100 WBC Sodium (137-145) mmol/L Carbon Dioxide (22-30) mmol/L BUN (9-20) mg/dL Creatinine (0.66-1.25) mg/dL Glucose (74-99) mg/dL Calcium (8.4-10.2) mg/dL Magnesium (1.6-2.3) mg/dL Total Creatine Kinase (55-170) U/L CK-MB (CK-2) (0.0-2.4) ng/mL Troponin I (0.000-0.034) ng/mL Crossmatch See Detail Assessment and Plan Plan: Assessment 1 acute dyspnea /hypoxemia, currently under investigation. The patient has developed bilateral pulmonary infiltrates more so in the lower lobes. Rule out aspiration pneumonia. Rule out atelectasis.. The VQ scan was negative for pulmonary embolism and it came back at a low probability. 2 troponin leak, free of any chest pain. Rule out underlying non-STEMI 3 right hip ORIF, postop day #3 4 frequent falls 5 right-sided fractures related to falls 6 Chronic atrial fibrillation 7 CVA, history of 8 hypertension 9 macular degeneration 10 osteoarthritis 11 BPH 12 chronic renal failure, creatinine remains stable 13 anemia. Acute drop in hemoglobin.. This is a postoperative drop in hemoglobin. No evidence of any acute bleeding. Patient was given units of packed RBC 4 hemoglobin of 6.7. 14 carotid artery stenosis, history of 15 smoker 16 abdominal aortic aneurysm that has been repaired 17 alcoholism and the patient drinks 30 beers a week, average is around 4-6 beers on a daily basis Plan Agree on packed RBC transfusion. Monitor hemoglobin. Watch for any signs of bleeding. Watch the surgical wound site. Switch this patient IV Zosyn and stop the Zithromax. Deep breathing. Incentive spirometer. Physical therapy. Echocardiogram was done this morning and this will be monitored. We'll continue to follow. Keep him in ICU for another 24 hours.
[2016-10-23] MEDS ORDERED: LEVOFLOXACIN 500MG-D5W PMX 500 MG in DEXTROSE/WATER 1 100ML.BAG IVPB SCH (12:00)
[2016-10-23 12:22] LABS: Glucose,Whole Blood 196 mg/dL (75-99)
[2016-10-23] MEDS: THIAMINE 100 MG TAB PO SCH ×2 (14:24→18:14)
--- NOTE | 2016-10-23 14:26 | P.CRDCN ---
History of Present Illness History of present illness: Elderly gentleman who was admitted with a right-sided hip fracture because of fall currently use consulted on account of history of shortness of breath and abnormal troponins Patient denies any chest discomfort no undue shortness of breath or breathing problems at this time he was brought to the ICU because he was short of breath 2 days back. Past history of atrial fibrillation, legally blind, history of alcohol abuse, multiple medical problems, status post hip surgery, mild hyperkalemia few days back Medications reviewed He is on aspirin statins and beta blockers On examination he is lying comfortably in bed Heart rate 90s, respirations 16-18, blood pressure 103/60 mmHg Breath sounds are reduced bilaterally Heart sounds are soft no rub or gallop Abdomen soft nontender Extremities warm no edema Impression Elderly gentleman who suffered a hip fracture status post surgery now Shortness of breath at rest improved with diuresis Borderline troponins consistent with myocardial injury, small S pace disease in the right middle lobe right lower lobe and left lower lobe COPD Suggest Medical management. Patient is on appropriate adequate treatment Past Medical History Past Medical History: Atrial Fibrillation, CVA/TIA, Hypertension, Osteoarthritis (OA), Renal Disease Additional Past Medical History / Comment(s): 01/25/15 Pt presented to [facility] ER with having awoken with R leg weakness and tingling in his R arm. He tried walking and was unable to controll R leg. He is admitted with clinical impression of CVA. 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 History of Any Multi-Drug Resistant Organisms: None Reported Past Surgical History: Coronary Bypass/CABG Additional Past Surgical History / Comment(s): 2009 AAA repair with aortofembypass, bilateral cataract removal. Past Anesthesia/Blood Transfusion Reactions: No Reported Reaction Additional Past Anesthesia/Blood Transfusion Reaction / Comment(s): Per old medical records, pt did recieve blood after AAA repair. Past Psychological History: No Psychological Hx Reported Additional Psychological History / Comment(s): Pt resides alone. His vision is very poor bilaterally. He has tripped and fell. He has a cane to use when he feels he needs it. He cannot drive to to vision, family takes him places. He has a dog. Smoking Status: Current every day smoker Past Alcohol Use History: Daily Additional Past Alcohol Use History / Comment(s): Pt states he is a ppd smoker for about 63 yrs. He drinks 30 beers a week-yesenia buys his beer and states he averages 4-6 beers a day. Past Drug Use History: None Reported - Past Family History Father Family Medical History: CVA/TIA Additional Family Medical History / Comment(s): Father of a CVA at age 63 yrs. Mother Family Medical History: CVA/TIA, Myocardial Infarction ([place]) Additional Family Medical History / Comment(s): Mother at age 85 yrs. Medications and Allergies Home Medications Medication Instructions Recorded Confirmed Type Warfarin [Coumadin] 5 mg PO DAILY 09/08/14 10/18/16 History amLODIPine BESYLATE [Norvasc] 10 mg PO DAILY 09/08/14 10/18/16 History Metoprolol Tartrate [Lopressor] 50 mg PO DAILY 01/25/15 10/18/16 History Lactose-Reduced Food [Boost] 1 can PO DAILY 10/18/16 10/18/16 History Allergies Allergy/AdvReac Type Severity Reaction Status Date / Time cephalexin monohydrate Allergy Unknown Unknown Verified 10/18/16 23:11 [From Keflex] ciprofloxacin Allergy Unknown Verified 10/18/16 23:11 Penicillins Allergy Unknown Verified 10/18/16 23:11 Physical Exam Vitals: Vital Signs Temp Pulse Resp BP Pulse Ox 10/23/16 11:23 92 10/23/16 11:14 84 10/23/16 11:00 106 H 18 103/60 10/23/16 10:10 78 16 107/54 99 10/23/16 10:00 97 15 107/54 97 10/23/16 09:00 81 14 104/62 100 10/23/16 08:00 90 16 104/67 98 10/23/16 07:35 98 10/23/16 07:34 92 L 10/23/16 07:24 86 10/23/16 07:15 85 10/23/16 07:06 97.7 F 73 21 101/52 97 10/23/16 07:00 94 23 101/52 98 10/23/16 06:00 90 16 100/52 100 10/23/16 05:00 87 13 106/56 100 10/23/16 04:00 98.7 F 82 14 95/57 92 L 10/23/16 03:16 20 10/23/16 03:00 79 20 100/51 95 10/23/16 02:00 89 21 106/53 93 L 10/23/16 01:00 81 12 92/53 94 L 10/23/16 00:00 97.5 F L 96 26 H 109/50 92 L 10/22/16 23:00 92 19 89/50 93 L 10/22/16 22:00 88 14 102/52 96 10/22/16 21:00 100 13 108/58 96 10/22/16 20:15 82 10/22/16 20:00 98 F 81 26 H 104/54 94 L 10/22/16 19:59 78 10/22/16 19:47 78 10/22/16 19:00 78 15 100/52 92 L 10/22/16 18:00 87 20 92/42 98 10/22/16 17:00 85 11 L 101/57 87 L 10/22/16 16:32 80 10/22/16 16:17 80 10/22/16 16:00 97.2 F L 78 19 110/60 85 L 10/22/16 15:00 78 20 102/55 95 Intake and Output 10/22/16 10/23/16 10/23/16 22:59 06:59 14:59 Intake Total 911 440 8301 Output Total 555 420 200 Balance 245 380 850 Intake: IV 800 800 500 Lactated Ringers 1,000 ml 800 800 500 @ 100 mls/hr IV .Q10H [facility] Rx#:[id number] Oral 240 Blood Product 310 Rc As-1 Unit 310 [id number] Output: Urine 555 420 200 Other: Voiding Method Indwelling Catheter Indwelling Catheter Indwelling Catheter Weight 85.4 kg Results 10/23/16 03:57 10/23/16 03:57 Cardiac Enzymes 10/22/16 10/22/16 Range/Units 18:24 22:40 Troponin I 0.351 H* 0.564 H* (0.000-0.034) ng/mL Coagulation 10/23/16 Range/Units 03:57 PT 10.5 (9.0-12.0) sec CBC 10/22/16 10/23/16 Range/Units 18:24 03:57 WBC 8.6 8.7 (3.8-10.6) k/uL RBC 2.41 L 2.25 L (4.30-5.90) m/uL Hgb 7.2 L 6.7 L* (13.0-17.5) gm/dL Hct 22.2 L 21.0 L (39.0-53.0) % Plt Count 252 231 (150-450) k/uL Comprehensive Metabolic Panel 10/23/16 Range/Units 03:57 Sodium 132 L (137-145) mmol/L Potassium 3.9 (3.5-5.1) mmol/L Chloride 104 (98-107) mmol/L Carbon Dioxide 19 L (22-30) mmol/L BUN 60 H (9-20) mg/dL Creatinine 1.60 H (0.66-1.25) mg/dL Glucose 170 H (74-99) mg/dL Calcium 8.3 L (8.4-10.2) mg/dL Current Medications Generic Name Dose Route Start Last Admin Trade Name Freq PRN Reason Stop Dose Admin Hydrocodone Bitart/Acetaminophen 1 each 10/22/16 10:17 10/23/16 10:21 [place] 10 PO 1 each Q8H PRN Administration Pain Albuterol/Ipratropium 3 ml 10/20/16 21:21 10/23/16 11:13 Duoneb 0.5 Mg-3 Mg/3 Ml Soln INHALATION 3 ml RT-QID MAX Administration Amlodipine Besylate 10 mg 10/20/16 09:00 10/23/16 10:28 Norvasc PO Not Given DAILY MAX Aspirin 81 mg 10/23/16 09:00 10/23/16 10:16 Aspirin PO 81 mg DAILY MAX Administration Atorvastatin Calcium 40 mg 10/22/16 14:15 10/23/16 10:15 Lipitor PO 40 mg DAILY MAX Administration Budesonide 1 mg 10/21/16 21:00 10/23/16 07:13 Pulmicort INHALATION 1 mg RT-BID MAX Administration Formoterol Fumarate 20 mcg 10/21/16 20:00 10/23/16 07:13 Perforomist INHALATION 20 mcg RT-BID MAX Administration Hydromorphone HCl 1 mg 10/19/16 09:03 10/20/16 04:04 Dilaudid IVP 1 mg Q3HR PRN Administration Pain Hydromorphone HCl 0.125 mg 10/20/16 15:01 Dilaudid IVP Q3HR PRN Pain Scale 1 to 3 Hydromorphone HCl 0.25 mg 10/20/16 15:01 10/22/16 09:55 Dilaudid IVP 0.25 mg Q3HR PRN Administration Pain Scale 4 to 6 Hydromorphone HCl 0.5 mg 10/20/16 15:01 Dilaudid IVP Q3HR PRN Pain Scale 7 to 10 Hydroxyzine Pamoate 25 mg 10/20/16 15:01 Vistaril PO Q4HR PRN Mild Nausea and/or Anxiety Sodium Chloride 1,000 mls @ 100 mls/hr 10/19/16 22:30 10/23/16 07:09 Saline 0.9% IV Not Given .Q10H MAX Lactated Ringer's 1,000 mls @ 100 mls/hr 10/20/16 15:15 10/23/16 14:24 Lactated Ringers IV Not Given .Q10H MAX Levofloxacin 500 mg/ IV 100 mls @ 100 mls/hr 10/23/16 12:00 10/23/16 14:23 Solution IVPB 10/23/16 18:00 100 mls/hr Q24H MAX Administration Levofloxacin/Dextrose 250 mg/ 50 mls @ 50 mls/hr 10/24/16 14:00 IV Solution IVPB Q24H MAX Lorazepam 1 mg 10/19/16 09:15 Ativan IV Q2HR PRN CIWA 8 or 9 Lorazepam 1 mg 10/19/16 09:15 Ativan IV Q1HR PRN CIWA 10 to 15 Lorazepam 2 mg 10/19/16 09:15 Ativan IV 10/26/16 09:16 Q10M PRN CIWA 16 or higher Magnesium Hydroxide 2,400 mg 10/20/16 15:01 Milk Of Magnesia PO DAILY PRN Constipation Methylprednisolone Sodium Succinate 40 mg 10/22/16 00:00 10/23/16 14:24 Solu-Medrol IV 40 mg Q6HR MAX Administration Metoprolol Tartrate 50 mg 10/19/16 09:30 10/23/16 10:15 Lopressor PO 50 mg BID MAX Administration Miscellaneous Information 1 each 10/22/16 13:34 Magnesium Per Protocol MISCELLANE DAILY PRN Per Protocol Protocol Naloxone HCl 0.2 mg 10/20/16 15:01 Narcan IV Q2M PRN Opioid Reversal Nicotine 1 patch 10/19/16 09:00 10/23/16 10:17 Habitrol 14mg/24hr Patch TRANSDERM 1 patch DAILY MAX Administration Ondansetron HCl 4 mg 10/19/16 08:54 Zofran IVP Q6HR PRN Nausea And Vomiting Pantoprazole Sodium 40 mg 10/19/16 09:45 10/23/16 10:16 Protonix IVP 40 mg DAILY MAX Administration Senna/Docusate Sodium 2 each 10/20/16 21:00 10/22/16 20:22 Senokot-S PO 2 each HS MAX Administration Thiamine HCl 100 mg 10/19/16 17:00 10/23/16 14:24 Vitamin B-1 PO 100 mg BID@1200,1700 MAX Administration Warfarin Sodium 5 mg 10/22/16 18:00 10/22/16 17:00 Coumadin PO 5 mg DAILY@1800 MAX Administration Intake and Output 10/22/16 10/23/16 10/23/16 22:59 06:59 14:59 Intake Total 236 635 7953 Output Total 555 420 200 Balance 245 380 850 Intake: IV 800 800 500 Lactated Ringers 1,000 ml 800 800 500 @ 100 mls/hr IV .Q10H [facility] Rx#:[id number] Oral 240 Blood Product 310 Rc As-1 Unit 310 [id number] Output: Urine 555 420 200 Other: Voiding Method Indwelling Catheter Indwelling Catheter Indwelling Catheter Weight 85.4 kg 10/23/16 03:57 10/23/16 03:57
--- NOTE | 2016-10-23 14:43 | ECHOF ---
Referral Reason:EKG Changes. MEASUREMENTS -------- HEIGHT: 180.3 cm WEIGHT: 85.3 kg BP: 101/52 IVSd: 1.1 cm (0.6 - 1.1) LVIDd: 4.3 cm (3.9 - 5.3) LVPWd: 1.4 cm (0.6 - 1.1) IVSs: 1.8 cm LVIDs: 2.8 cm LVPWs: 1.9 cm LAESV Index (A-L): 44.58 ml/m Ao Diam: 3.2 cm (2.0 - 3.7) AV Cusp: 2.2 cm (1.5 - 2.6) LA Diam: 4.0 cm (2.7 - 3.8) MV EXCURSION: 11.453 mm (> 18.000) MV EF SLOPE: 91 mm/s (70 - 150) EPSS: 0.7 cm MV E Coy: 1.00 m/s MV DecT: 234 ms MV A Coy: 0.83 m/s MV E/A Ratio: 1.22 AR PHT: 474 ms RAP: 15.00 mmHg RVSP: 51.20 mmHg FINDINGS -------- Sinus rhythm with extra systolic beats. This was a technically good study. There is mild concentric left ventricular hypertrophy. Overall left ventricular systolic function is normal with, an EF between 55 - 60 %. The right ventricle is normal in size and function. LA is severely dilated >40 ml/m2 RA appears enlarged. Aortic valve is trileaflet and is mildly thickened. There is mild aortic regurgitation. The mitral valve leaflets are mildly thickened. Ayfajnex-[id number] mitral regurgitation is present. Moderate tricuspid regurgitation present. There is moderate pulmonary hypertension. The right ventricular systolic pressure, as measured by Doppler, is 51.20mmHg. Pulmonic valve appears structurally normal. The aortic root size is normal. The inferior vena cava is mildly dilated. The pericardium is normal. CONCLUSIONS -------- 1. Sinus rhythm with extra systolic beats. 2. The mitral valve leaflets are mildly thickened. 3. Ilnyexbb-zq-mgiyqv mitral regurgitation is present. 4. Moderate tricuspid regurgitation present. 5. There is moderate pulmonary hypertension. 6. The right ventricular systolic pressure, as measured by Doppler, is 51.20mmHg. 7. Pulmonic valve appears structurally normal. 8. The aortic root size is normal. 9. The inferior vena cava is mildly dilated. 10. The pericardium is normal. 11. This was a technically good study. 12. There is mild concentric left ventricular hypertrophy. 13. Overall left ventricular systolic function is normal with, an EF between 55 - 60 %. 14. The right ventricle is normal in size and function. 15. LA is severely dilated >40 ml/m2 16. RA appears enlarged. 17. Aortic valve is trileaflet and is mildly thickened. 18. There is mild aortic regurgitation. [employer] DIRECTOR: Rajani Etienne RDCS
--- NOTE | 2016-10-23 17:13 | P.PN ---
Progress Note - Text Patient is a pleasant 81-year-old male who is seen and examined at bedside in the ICU for follow-up evaluation after undergoing right intertrochanteric nail fixation performed by Dr. Raya 10/20/2016. Is being seen and examined yesterday, patient has continued to have some improvement. He was transferred to the ICU after he was found to be hypoxic. He has a history of COPD. He continues to receive O2 nasal cannula with 5 L of oxygen. Nursing states he may be transferred back to the surgical floor today. He has had some borderline elevated troponin levels and underwent consultation with cardiology today. Cardiology is recommending he continue with his current treatment regimen. He continues to receive his home dose of Coumadin 5 mg daily. Nursing states his anticoagulation status has still not been addressed by medicine. We are currently continuing with his home dose of Coumadin 5 mg daily. We are obtaining daily PT/INR lab draws. Patient also states he continues to have pain at the right hip. He is known have degenerative changes lumbar spine. He continues to take Onekama 10 mg/325 mg 1 tab every 8 hours for pain control as prescribed as needed for relief of symptoms. Appropriate prescription for pain medication will be discussed prior to discharge. Physical Exam Intramedullary Rodding for Intertrochanteric Fracture: Status post surgical day number 3 Patient is examined lying in bed Patient is awake and alert, and oriented 3 Evidence of adequate chest excursion with inspiration and expiration; currently on O2 nasal cannula receiving 5 L of oxygen Abdomen soft nontender No signs or symptoms of DVT; no calf pain Lower extremity cuffs in place bilaterally Dressing of the right hip is clean, dry, and intact; no erythema, purulence, or signs of infection; some evidence of dried drainage and dried blood at the incision sites without active drainage Full range of motion of ankles bilaterally Dorsiflexion, plantarflexion, and extensor hallucis longus positive sustained bilaterally Neurovascularly intact bilateral lower extremities Assessment: Status post right intertrochanteric nail fixation for intertrochanteric hip fracture Alcohol dependence Hypoxia Atrial fibrillation History of COPD Plan: 1. Patient to remain nonweightbearing on the right lower extremity; patient may work with physical therapy to increase mobility and ambulation 2. Continue pain control with Onekama 10 mg/325 mg 1 tab every 8 hours as needed for pain 3. Medicine to continue following the patient for his other medical issues; medicine to monitor anticoagulation therapy; medicine did not resume anticoagulation therapy previously; We'll plan to continue with Coumadin 5 mg as prescribed for home dosing with serial PT/INR lab draws 4. Dr. Segal in pulmonology will continue to follow the patient for further evaluation and treatment for hypoxia 5. We'll continue to follow the patient 6. Patient will more than likely remain in the hospital over the weekend with plans to discharge to rehab facility early next once cleared by medicine and Pulmonology 7. Patient can follow-up with Dr. Raya at [facility] in 2-3 weeks following discharge
[2016-10-23 17:14] LABS: Glucose,Whole Blood 203 mg/dL (75-99)
[2016-10-23] MEDS: WARFARIN 5 MG TAB PO SCH (18:14)
[2016-10-23] MEDS: INSULIN LISPRO (humaLOG) 300 UNIT/3 ML VIAL SQ SCH ×2 (18:16→22:10)
--- NOTE | 2016-10-23 18:21 | P.PN ---
Subjective Progress note being dictated for Dr. Aiken Interval history: This is an 81-year-old gentleman admitted with right-sided hip fracture secondary to mechanical fall, in a patient with history of atrial fibrillation, legally blind, alcohol abuse and multiple other medical issues. Evaluated by orthopedics and surgery pending. Received vitamin K yesterday, INR currently 2.3 and received another dose of vitamin K. Mildly hyperkalemic at 5.4, Kayexalate ordered. Worsened renal function, creatinine 2.48. Sodium 133. Denies chest pain, palpitations or increasing shortness of breath. 10/21/2016 status post right intertrochanteric nail fixation for hip fracture POD #1. Complaining of right hip pain. Desatted with labored breathing, though states not short of breath.Received Lasix, nebulized bronchodilators and placed on a nonrebreather initially. Chest x-ray reported bilateral areas of infiltrate and tiny effusion, underlying COPD. evaluated by Dr. Segal, transferred to ICU. Hemoglobin 8.4. Renal function improving. 10/22/16 maintained on antibiotics, nebulized bronchodilators. Slow improvement in respiratory function. Maintaining O2 sats of 91% on 5 L nasal cannula. Denies shortness of breath. VQ reporting low probability for PE, underlying COPD. chest x-ray noted. Maintained on CIWA protocol, possible early DTs. 10/23/2016 INR 1.0 on Coumadin. hemoglobin this morning 6.7, received one unit of packed RBC. Breathing continues to improve on nebulized bronchodilators with oxygen titrated down to 4 L nasal cannula. Afebrile. Pain controlled. Denies chest pain, palpitations or increasing shortness of breath.Antibiotics changed to Zosyn. ECHO pending. Unable to perform review of systems as patient with vague historian, pleasantly confused. Active Medications Generic Name Dose Route Start Last Admin Trade Name Freq PRN Reason Stop Dose Admin Hydrocodone Bitart/Acetaminophen 1 each 10/23/16 14:54 10/23/16 16:17 [place] 10 PO 1 each Q6H PRN Administration Pain Albuterol/Ipratropium 3 ml 10/20/16 21:21 10/23/16 17:32 Duoneb 0.5 Mg-3 Mg/3 Ml Soln INHALATION 3 ml RT-QID MAX Administration Amlodipine Besylate 10 mg 10/20/16 09:00 10/23/16 10:28 Norvasc PO Not Given DAILY MAX Aspirin 81 mg 10/23/16 09:00 10/23/16 10:16 Aspirin PO 81 mg DAILY MAX Administration Atorvastatin Calcium 40 mg 10/22/16 14:15 10/23/16 10:15 Lipitor PO 40 mg DAILY MAX Administration Budesonide 1 mg 10/21/16 21:00 10/23/16 07:13 Pulmicort INHALATION 1 mg RT-BID MAX Administration Formoterol Fumarate 20 mcg 10/21/16 20:00 10/23/16 07:13 Perforomist INHALATION 20 mcg RT-BID MAX Administration Hydromorphone HCl 1 mg 10/19/16 09:03 10/20/16 04:04 Dilaudid IVP 1 mg Q3HR PRN Administration Pain Hydromorphone HCl 0.125 mg 10/20/16 15:01 Dilaudid IVP Q3HR PRN Pain Scale 1 to 3 Hydromorphone HCl 0.25 mg 10/20/16 15:01 10/22/16 09:55 Dilaudid IVP 0.25 mg Q3HR PRN Administration Pain Scale 4 to 6 Hydromorphone HCl 0.5 mg 10/20/16 15:01 Dilaudid IVP Q3HR PRN Pain Scale 7 to 10 Hydroxyzine Pamoate 25 mg 10/20/16 15:01 Vistaril PO Q4HR PRN Mild Nausea and/or Anxiety Sodium Chloride 1,000 mls @ 100 mls/hr 10/19/16 22:30 10/23/16 14:28 Saline 0.9% IV 100 mls/hr .Q10H MAX Administration Lactated Ringer's 1,000 mls @ 100 mls/hr 10/20/16 15:15 10/23/16 14:24 Lactated Ringers IV Not Given .Q10H MAX Levofloxacin/Dextrose 250 mg/ 50 mls @ 50 mls/hr 10/24/16 14:00 IV Solution IVPB Q24H MAX Insulin Human Lispro 0 unit 10/23/16 21:00 Humalog SQ ACHS [facility] Protocol Lorazepam 1 mg 10/19/16 09:15 Ativan IV Q2HR PRN CIWA 8 or 9 Lorazepam 1 mg 10/19/16 09:15 Ativan IV Q1HR PRN CIWA 10 to 15 Lorazepam 2 mg 10/19/16 09:15 Ativan IV 10/26/16 09:16 Q10M PRN CIWA 16 or higher Magnesium Hydroxide 2,400 mg 10/20/16 15:01 Milk Of Magnesia PO DAILY PRN Constipation Methylprednisolone Sodium Succinate 40 mg 10/22/16 00:00 10/23/16 14:24 Solu-Medrol IV 40 mg Q6HR MAX Administration Metoprolol Tartrate 50 mg 10/19/16 09:30 10/23/16 10:15 Lopressor PO 50 mg BID MAX Administration Miscellaneous Information 1 each 10/22/16 13:34 Magnesium Per Protocol MISCELLANE DAILY PRN Per Protocol Protocol Naloxone HCl 0.2 mg 10/20/16 15:01 Narcan IV Q2M PRN Opioid Reversal Nicotine 1 patch 10/19/16 09:00 10/23/16 10:17 Habitrol 14mg/24hr Patch TRANSDERM 1 patch DAILY MAX Administration Ondansetron HCl 4 mg 10/19/16 08:54 Zofran IVP Q6HR PRN Nausea And Vomiting Pantoprazole Sodium 40 mg 10/19/16 09:45 10/23/16 10:16 Protonix IVP 40 mg DAILY MAX Administration Senna/Docusate Sodium 2 each 10/20/16 21:00 10/22/16 20:22 Senokot-S PO 2 each HS MAX Administration Thiamine HCl 100 mg 10/19/16 17:00 10/23/16 14:24 Vitamin B-1 PO 100 mg BID@1200,1700 MAX Administration Warfarin Sodium 5 mg 10/22/16 18:00 10/22/16 17:00 Coumadin PO 5 mg DAILY@1800 MAX Administration Objective - Vital Signs Vital signs: Vital Signs Temp 98.3 F 10/23/16 16:00 Pulse 90 10/23/16 17:42 Resp 20 10/23/16 16:00 BP 116/67 10/23/16 16:00 Pulse Ox 91 L 10/23/16 17:32 Intake & Output 10/22/16 10/23/16 10/23/16 18:59 06:59 18:59 Intake Total 1100 1200 1450 Output Total 790 675 360 Balance 137 253 0714 Weight 85.4 kg Intake: IV 1100 1200 900 Lactated Ringers 1,000 ml 1100 1200 500 @ 100 mls/hr IV .Q10H MAX Rx#:[id number] Sodium Chloride 0.9% 1, 400 000 ml @ 100 mls/hr IV . Q10H MAX Rx#:[id number] Oral 240 Blood Product 310 Rc As-1 Unit 310 [id number] Output: Urine 790 675 360 Other: Voiding Method Indwelling Catheter Indwelling Catheter Indwelling Catheter - Exam GENERAL: Sitting up in bed, alert and oriented 2-3, no acute distress HEENT: Conjunctivae normal. Oral mucosa moist. NECK: No JVD. No thyroid enlargement. No LNs CARDIOVASCULAR: S1, S2 muffled. No murmur, rub or gallop RESPIRATION: Respiratory effort mildly increased, Breath sounds diminished in the bases with bibasilar crackles, no wheezing ABDOMEN: Soft, nontender . No guarding. no masses palpable. No ascites, No hepatosplenomegaly.Bowel sounds heard. NERVOUS SYSTEM: Cranial N 2-12 grossly normal. Diffuse weakness No focal deficits. Skin: no ulcer no rash Lymphatic system. No LN neck axilla or groin. - Labs CBC & Chem 7: 10/23/16 03:57 10/23/16 03:57 Labs: Abnormal Lab Results - Last 24 Hours (Table) 10/22/16 10/22/16 10/22/16 Range/Units 18:24 18:24 22:40 RBC 2.41 L (4.30-5.90) m/uL Hgb 7.2 L (13.0-17.5) gm/dL Hct 22.2 L (39.0-53.0) % RDW 16.2 H (11.5-15.5) % Neutrophils # (Manual) 7.90 H (1.3-7.7) k/uL Lymphocytes # (Manual) 0.43 L (1.0-4.8) k/uL Myelocytes # (Manual) 0.09 H (0) k/uL Nucleated RBCs 1 H (0-0) /100 WBC Sodium (137-145) mmol/L Carbon Dioxide (22-30) mmol/L BUN (9-20) mg/dL Creatinine (0.66-1.25) mg/dL Glucose (74-99) mg/dL POC Glucose (mg/dL) (75-99) mg/dL Calcium (8.4-10.2) mg/dL Magnesium (1.6-2.3) mg/dL Troponin I 0.351 H* 0.564 H* (0.000-0.034) ng/mL Crossmatch 10/23/16 10/23/16 10/23/16 Range/Units 03:57 03:57 05:39 RBC 2.25 L (4.30-5.90) m/uL Hgb 6.7 L* (13.0-17.5) gm/dL Hct 21.0 L (39.0-53.0) % RDW 16.4 H (11.5-15.5) % Neutrophils # (Manual) 8.00 H (1.3-7.7) k/uL Lymphocytes # (Manual) 0.44 L (1.0-4.8) k/uL Myelocytes # (Manual) (0) k/uL Nucleated RBCs 3 H (0-0) /100 WBC Sodium 132 L (137-145) mmol/L Carbon Dioxide 19 L (22-30) mmol/L BUN 60 H (9-20) mg/dL Creatinine 1.60 H (0.66-1.25) mg/dL Glucose 170 H (74-99) mg/dL POC Glucose (mg/dL) (75-99) mg/dL Calcium 8.3 L (8.4-10.2) mg/dL Magnesium 2.5 H (1.6-2.3) mg/dL Troponin I (0.000-0.034) ng/mL Crossmatch See Detail 10/23/16 10/23/16 Range/Units 12:19 17:12 RBC (4.30-5.90) m/uL Hgb (13.0-17.5) gm/dL Hct (39.0-53.0) % RDW (11.5-15.5) % Neutrophils # (Manual) (1.3-7.7) k/uL Lymphocytes # (Manual) (1.0-4.8) k/uL Myelocytes # (Manual) (0) k/uL Nucleated RBCs (0-0) /100 WBC Sodium (137-145) mmol/L Carbon Dioxide (22-30) mmol/L BUN (9-20) mg/dL Creatinine (0.66-1.25) mg/dL Glucose (74-99) mg/dL POC Glucose (mg/dL) 196 H 203 H (75-99) mg/dL Calcium (8.4-10.2) mg/dL Magnesium (1.6-2.3) mg/dL Troponin I (0.000-0.034) ng/mL Crossmatch Assessment and Plan Plan: 1. Right-sided hip fracture secondary to mechanical fall, status post surgical repair 2. Acute hypoxic respiratory failure 3. Acute COPD exacerbation 4. Chronic, persistent Atrial fibrillation, 5. Legal blindness 6. Alcohol abuse, possible early DTs 7. Acute renal failure 8. hyponatremia, probably hypovolemic Plan: Continue on current medication regime ,monitoring and symptomatic treatment. Maintain CIWA protocol. ECHO pending. Agrresive pulmonary toileting. Prognosis guarded given multiple complex medical issues. Further recommendations to follow. The impression and plan of care has been dictated as directedas a adis Mcbride: I performed a H&P examination of this patient and discussed the same with the dictator. I agree with the dictator's note. Any additional findings/opinions/ etc. will be noted.
[2016-10-23 21:04] LABS: Anisocytosis Slight; Basophils % (A) 0 %; CH 30.6; Eosinophils % (A) 0 %; HCT 24.2 % (39.0-53.0); HDW 3.25; HGB 7.7 gm/dL (13.0-17.5); Luc # (Auto) 0.11; Luc % (Auto) 1; Lymphocytes # (A) 0.6 k/uL (1.0-4.8); Lymphocytes % (A) 6 %; MCH 29.7 pg (25.0-35.0); MCHC 31.8 g/dL (31.0-37.0); MCV 93.6 fL (80.0-100.0); Mean Platelet Volume 8.9; Monocytes # (A) 0.4 k/uL (0-1.0); Monocytes % (A) 4 %; Neutrophils # (A) 9.2 k/uL (1.3-7.7); Neutrophils % (A) 89 %; RBC 2.59 m/uL (4.30-5.90); RDW 17.2 % (11.5-15.5); WBC 10.3 k/uL (3.8-10.6); WBC (Perox) 10.09
[2016-10-23 21:46] LABS: Manual Review Performed; Polychromasia Present; Toxic Granulation Present
[2016-10-23] MEDS: POTASSIUM CHLORIDE 10 MEQ, LIDOCAINE 2% INJ 10 MG in SODIUM CHLORIDE 0.9% 100 ML IV SCH (22:07)
[2016-10-23] MEDS: SENNOSIDES-DOCUSATE SODIUM 1 EACH TAB PO SCH (22:07)
[2016-10-23 22:11] LABS: Glucose,Whole Blood 199 mg/dL (75-99)
[2016-10-24] MEDS: LACTATED RINGERS 1,000 ML IV SCH (00:06)
[2016-10-24] MEDS: POTASSIUM CHLORIDE 10 MEQ, LIDOCAINE 2% INJ 10 MG in SODIUM CHLORIDE 0.9% 100 ML IV SCH (00:06)
[2016-10-24] MEDS: methylPREDNISolone SOD SUCCI 40 MG/ML 1 ML VIAL IV SCH ×5 (00:06→23:43)
[2016-10-24 04:56] LABS: Anisocytosis Slight; CH 30.8; CHCM 32.7; HCT 26.3 % (39.0-53.0); HDW 3.27; HGB 8.6 gm/dL (13.0-17.5); MCH 31.1 pg (25.0-35.0); MCHC 32.7 g/dL (31.0-37.0); MCV 95.2 fL (80.0-100.0); Macrocytosis Slight; Mean Platelet Volume 9.3; RBC 2.76 m/uL (4.30-5.90); RDW 17.3 % (11.5-15.5)
[2016-10-24 05:03] LABS: INR 1.2 (<1.2); Prothrombin Time 12.3 sec (9.0-12.0)
[2016-10-24 05:07] LABS: Calcium 8.3 mg/dL (8.4-10.2); Magnesium 2.4 mg/dL (1.6-2.3); Phosphorous 3.9 mg/dL (2.5-4.5); Potassium 4.4 mmol/L (3.5-5.1)
[2016-10-24] MEDS: SODIUM CHLORIDE 0.9% 1,000 ML IV SCH ×2 (06:46→12:09)
--- NOTE | 2016-10-24 06:59 | XR ---
EXAMINATION TYPE: XR chest 1V portable DATE OF EXAM: 10/24/2016 HISTORY: shortness of breath. REFERENCE: Previous study dated 10/22/2016. FINDINGS: Crescentic density noted overlying the left apex previously is no longer evident. The heart is mildly enlarged. There is interstitial lung disease likely reflecting heart failure. The re is worsening left basilar airspace disease as well as right basilar airspace disease. There is mil d vascular congestion. There is a small left effusion. Note is made of old right-sided rib fractures. IMPRESSION: FINDINGS MOST CONSISTENT WITH WORSENING CONGESTIVE HEART FAILURE.
[2016-10-24] MEDS: FORMOTEROL FUMARATE 20 MCG/2 ML NEBU INHALATION SCH ×2 (07:04→21:03)
[2016-10-24] MEDS: BUDESONIDE 1 MG/2 ML NEBU INHALATION SCH ×2 (07:04→21:03)
[2016-10-24] MEDS: IPRATROPIUM-ALBUTEROL 3 ML NEB INHALATION SCH ×4 (07:04→21:03)
[2016-10-24 07:31] LABS: Glucose,Whole Blood 198 mg/dL (75-99)
[2016-10-24] MEDS: INSULIN LISPRO (humaLOG) 300 UNIT/3 ML VIAL SQ SCH ×4 (08:16→22:36)
[2016-10-24] MEDS: ASPIRIN 81 MG PO SCH (08:17)
[2016-10-24] MEDS: ATORVASTATIN 40 MG TAB PO SCH (08:17)
[2016-10-24] MEDS: HYDROcodone/APAP 10-325MG 1 EACH TAB PO PRN ×3 (08:17→22:30)
[2016-10-24] MEDS: PANTOPRAZOLE 40 MG/10 ML VIAL IVP SCH (08:18)
[2016-10-24] MEDS: NICOTINE 14MG/24HR PATCH TRANSDERM SCH (08:18)
[2016-10-24] MEDS: amLODIPine 10 MG TAB PO SCH (08:18)
--- NOTE | 2016-10-24 08:58 | P.PN ---
Subjective This is an 81-year-old male. He apparently fell while at home and he fractured his right hip. He apparently has poor vision and falls frequently. His right hip fracture was repaired by one of the orthopedic surgeons a couple days ago, on 10/20/2016.. The patient apparently started having issues with his breathing and saturations overnight. For that reason, the patient was brought into the intensive care unit on 10/21/2016. The patient was seen in consultation by Dr Segal. The patient admitted that that he was having some respiratory distress although he denied everything else. His chest x-ray suggests bibasilar infiltrates and/or atelectasis. The patient was placed on high flow O2. His medical history includes among other things atrial fibrillation CVA hypertension DJD poor vision benign prostatic hypertrophy anemia and ileus. The patient also suffers from chronic renal failure. He is a chronic smoker. His troponins were minimally elevated with levels of 0.1, 0.0 0.5 respectively 3. His VQ scan was of a low probability. The patient had triple matched defects corresponding to airspace disease within the right middle lobe, right lower lobe and left lower lobe. I reviewed his chest x-rays postop and the patient has a right-sided fractures. Infiltration can be seen also on the lower lobes bilaterally. He has been maintained on oral Zithromax. He has remained afebrile throughout the hospitalization. The patient has also carotid artery disease that was confirmed back in 2014 by [facility] and the patient has approximately 50-69% stenosis of the left internal carotid artery. On 10/23/2016 the patient is on 4 L of oxygen by nasal cannula. He is not having any major respiratory distress. He is calm and comfortable. No reported aspiration. He is tolerating his diet fine and he swallows without any major difficulties. No chest pain. No fever. No chills. No night sweats. His morning hemoglobin was around 6.7. The patient was given a unit of packed RBC. Note that his admission hemoglobin was at 12.6. No evidence of any external GI bleeding. The surgical wound site is dry clean and intact. No evidence of any hematoma formation. The patient has no coagulopathy. He used to take Coumadin at home for chronic atrial fibrillation this was restarted yesterday. The PT/INR from this morning is 10.5 x 1.0 respectively. on 10/24/2016 I'm seeing this patient in follow-up. the patient is still recovering from his hip surgery. This morning it is on 8 L of oxygen by nasal cannula and his chest x-ray showing some limited infiltration of the lung bases. I started him on Levaquin yesterday. Minimal cough. Minimal chest congestion. No fever chills or night sweats. his hemoglobin is stable. The patient received a unit of packed RBC yesterday. His right thigh incision is clean and intact. He has developed some scrotal hematoma which probably is related to the surgery and I suspect that the patient may have had some bleeding within the thigh or within the retroperitoneum. In any rate, there is no evidence of any ongoing bleed and the hemoglobin is stable and the patient was started on anticoagulation with warfarin. His cardiac rhythm is still atrial fibrillation. The patient has a controlled rate. No hypotension. No change in mental status. His right hip is still nonweightbearing and he was able to participate in physical therapy yesterday. no signs of delirium tremens. Objective - Vital Signs Vital signs: Vital Signs Temp 98.1 F 10/24/16 08:00 Pulse 98 10/24/16 08:00 Resp 17 10/24/16 08:00 BP 123/86 10/24/16 08:00 Pulse Ox 100 10/24/16 08:00 Intake & Output 10/23/16 10/24/16 10/24/16 18:59 06:59 18:59 Intake Total 2310 1400 100 Output Total 555 660 70 Balance 1755 740 30 Weight 85.5 kg Intake: IV 1200 1400 100 Lactated Ringers 1,000 ml 500 @ 100 mls/hr IV .Q10H MAX Rx#:[id number] Potassium Chloride 10 meq 100 Lidocaine 2% Inj 10 mg In Sodium Chloride 0.9% 100 ml @ 100 mls/hr IV Q1HR MAX Rx#:[id number] Sodium Chloride 0.9% 1, 700 1300 100 000 ml @ 100 mls/hr IV . Q10H MAX Rx#:[id number] Oral 800 Blood Product 310 Rc As-1 Unit 310 [id number] Output: Urine 555 660 70 Other: Voiding Method Indwelling Catheter Indwelling Catheter - Exam Gen. appearance is calm, somewhat like a distress. His resting comfortably in bed.Head exam was generally normal. There was no scleral icterus or corneal arcus. Mucous membranes were moist.Neck was supple and without jugular venous distension, thyromegaly, or carotid bruits. Carotids were easily palpable bilaterally. There was no adenopathy.lungs sounds are diminished in lung bases bilaterally along with some bibasilar crackles. Heart sounds are irregular, positive S1-S2 and there is a faint systolic ejection murmur heard throughout the precordium.Abdominal exam revealed normal bowel sounds. The abdomen was soft , non-tender, and without masses, organomegaly, or appreciable enlargement of the abdominal aorta. There is evidence of scrotal hematoma. The scrotum is nonswollen at this point. Extremities are showing trace edema and there is no cyanosis or clubbing. His surgical wound site over the right hip area is dry clean and intact. Neurologically the patient is awake and following commands and answering questions appropriately. - Labs CBC & Chem 7: 10/24/16 04:43 10/24/16 04:19 Labs: Abnormal Lab Results - Last 24 Hours (Table) 10/23/16 10/23/16 10/23/16 Range/Units 05:39 12:19 17:12 WBC (3.8-10.6) k/uL RBC (4.30-5.90) m/uL Hgb (13.0-17.5) gm/dL Hct (39.0-53.0) % RDW (11.5-15.5) % Neutrophils # (1.3-7.7) k/uL Lymphocytes # (1.0-4.8) k/uL PT (9.0-12.0) sec INR (<1.2) Sodium (137-145) mmol/L Carbon Dioxide (22-30) mmol/L BUN (9-20) mg/dL Creatinine (0.66-1.25) mg/dL Glucose (74-99) mg/dL POC Glucose (mg/dL) 196 H 203 H (75-99) mg/dL Calcium (8.4-10.2) mg/dL Magnesium (1.6-2.3) mg/dL Crossmatch See Detail 10/23/16 10/23/16 10/24/16 Range/Units 20:22 22:09 04:19 WBC (3.8-10.6) k/uL RBC 2.59 L (4.30-5.90) m/uL Hgb 7.7 L (13.0-17.5) gm/dL Hct 24.2 L (39.0-53.0) % RDW 17.2 H (11.5-15.5) % Neutrophils # 9.2 H (1.3-7.7) k/uL Lymphocytes # 0.6 L (1.0-4.8) k/uL PT (9.0-12.0) sec INR (<1.2) Sodium 134 L (137-145) mmol/L Carbon Dioxide 16 L (22-30) mmol/L BUN 61 H (9-20) mg/dL Creatinine 1.50 H (0.66-1.25) mg/dL Glucose 184 H (74-99) mg/dL POC Glucose (mg/dL) 199 H (75-99) mg/dL Calcium 8.3 L (8.4-10.2) mg/dL Magnesium 2.4 H (1.6-2.3) mg/dL Crossmatch 10/24/16 10/24/16 10/24/16 Range/Units 04:19 04:43 07:29 WBC 14.0 H (3.8-10.6) k/uL RBC 2.76 L (4.30-5.90) m/uL Hgb 8.6 L (13.0-17.5) gm/dL Hct 26.3 L (39.0-53.0) % RDW 17.3 H (11.5-15.5) % Neutrophils # (1.3-7.7) k/uL Lymphocytes # (1.0-4.8) k/uL PT 12.3 H (9.0-12.0) sec INR 1.2 H (<1.2) Sodium (137-145) mmol/L Carbon Dioxide (22-30) mmol/L BUN (9-20) mg/dL Creatinine (0.66-1.25) mg/dL Glucose (74-99) mg/dL POC Glucose (mg/dL) 198 H (75-99) mg/dL Calcium (8.4-10.2) mg/dL Magnesium (1.6-2.3) mg/dL Crossmatch Assessment and Plan Plan: Assessment 1 acute dyspnea /hypoxemia, currently under investigation. The patient has developed bilateral pulmonary infiltrates more so in the lower lobes. Rule out aspiration pneumonia. Rule out atelectasis.. The VQ scan was negative for pulmonary embolism and it came back at a low probability. on 10/24/2016 the patient is still on high flow oxygen 8 L/m nasal cannula. The patient using incentive spirometer. Chest x-ray findings are stable. The patient is not having any significant respiratory distress. The FiO2 will be gradually weaned down. 2 troponin leak, free of any chest pain. Rule out underlying non-STEMI 3 right hip ORIF, postop day #4 4 frequent falls 5 right-sided fractures related to falls 6 Chronic atrial fibrillation, rate is controlled for now 7 CVA, history of 8 hypertension 9 macular degeneration 10 osteoarthritis 11 BPH 12 chronic renal failure, creatinine remains stable, and it's improving and the creatinine is down to 1.5. 13 anemia. Acute drop in hemoglobin.. This is a postoperative drop in hemoglobin. No evidence of any acute bleeding. Patient was given unit of packed RBC and today's hemoglobin is up to 8.6. There is no evidence of any ongoing bleed. Hemoglobin is stable and at the correlation was resumed. 14 carotid artery stenosis, history of 15 smoker 16 abdominal aortic aneurysm that has been repaired 17 alcoholism and the patient drinks 30 beers a week, average is around 4-6 beers on a daily basis Plan continue Levaquin. Incentive spirometer. Pulmonate toileting. Aspiration precautions. Monitor the hemoglobin. Physical therapy. Anticoagulation with Coumadin. Can be moved out to a telemetry unitI will monitor this patient's progress closely with the rest of the surgical and medical team.
[2016-10-24] MEDS: METOPROLOL TARTRATE 50 MG TAB PO SCH ×2 (10:52→20:21)
[2016-10-24 11:53] LABS: Hemoglobin A1C 6.2 % (4.2-6.1)
[2016-10-24] MEDS: THIAMINE 100 MG TAB PO SCH ×2 (12:08→16:17)
[2016-10-24 12:17] LABS: Glucose,Whole Blood 194 mg/dL (75-99)
--- NOTE | 2016-10-24 12:23 | P.PN ---
Subjective Principal diagnosis: Status post right intertrochanteric nail fixation, COPD, hypoxia This is a pleasant 81-year-old male who is status post right intertrochanteric nail fixation on 10/20/2016. This is postoperative day #4. Patient is currently in the ICU for hypoxia, history of COPD and cardiac issues. Patient states there is pain to the right hip and this is controlled with [place]. Patient denies any calf pain or swelling. Patient has no new complaints today. Objective - Vital Signs Vital signs: Vital Signs Temp 98.3 F 10/24/16 12:00 Pulse 127 H 10/24/16 12:00 Resp 29 H 10/24/16 12:00 BP 138/78 10/24/16 12:00 Pulse Ox 94 L 10/24/16 12:00 Intake & Output 10/23/16 10/24/16 10/24/16 18:59 06:59 18:59 Intake Total 2310 1400 350 Output Total 555 660 340 Balance 1755 740 10 Weight 85.5 kg 85.5 kg Intake: IV 1200 1400 350 Lactated Ringers 1,000 ml 500 @ 100 mls/hr IV .Q10H MAX Rx#:[id number] Potassium Chloride 10 meq 100 Lidocaine 2% Inj 10 mg In Sodium Chloride 0.9% 100 ml @ 100 mls/hr IV Q1HR MAX Rx#:[id number] Sodium Chloride 0.9% 1, 700 1300 350 000 ml @ 100 mls/hr IV . Q10H MAX Rx#:[id number] Oral 800 Blood Product 310 Rc As-1 Unit 310 [id number] Output: Urine 555 660 340 Other: Voiding Method Indwelling Catheter Indwelling Catheter Indwelling Catheter - Exam Vital signs are stable. Patient is in no acute distress and is answering questions appropriately Calf is soft and nontender. Incision is clean, dry, and intact. [place] are intact There is mild drainage. Neurovascular status intact. Patient has full foot and ankle motion without difficulty or pain. - Labs CBC & Chem 7: 10/24/16 04:43 10/24/16 04:19 Labs: Abnormal Lab Results - Last 24 Hours (Table) 10/23/16 10/23/16 10/23/16 Range/Units 12:19 17:12 20:22 WBC (3.8-10.6) k/uL RBC 2.59 L (4.30-5.90) m/uL Hgb 7.7 L (13.0-17.5) gm/dL Hct 24.2 L (39.0-53.0) % RDW 17.2 H (11.5-15.5) % Neutrophils # 9.2 H (1.3-7.7) k/uL Lymphocytes # 0.6 L (1.0-4.8) k/uL PT (9.0-12.0) sec INR (<1.2) Sodium (137-145) mmol/L Carbon Dioxide (22-30) mmol/L BUN (9-20) mg/dL Creatinine (0.66-1.25) mg/dL Glucose (74-99) mg/dL POC Glucose (mg/dL) 196 H 203 H (75-99) mg/dL Calcium (8.4-10.2) mg/dL Magnesium (1.6-2.3) mg/dL 10/23/16 10/24/16 10/24/16 Range/Units 22:09 04:19 04:19 WBC (3.8-10.6) k/uL RBC (4.30-5.90) m/uL Hgb (13.0-17.5) gm/dL Hct (39.0-53.0) % RDW (11.5-15.5) % Neutrophils # (1.3-7.7) k/uL Lymphocytes # (1.0-4.8) k/uL PT 12.3 H (9.0-12.0) sec INR 1.2 H (<1.2) Sodium 134 L (137-145) mmol/L Carbon Dioxide 16 L (22-30) mmol/L BUN 61 H (9-20) mg/dL Creatinine 1.50 H (0.66-1.25) mg/dL Glucose 184 H (74-99) mg/dL POC Glucose (mg/dL) 199 H (75-99) mg/dL Calcium 8.3 L (8.4-10.2) mg/dL Magnesium 2.4 H (1.6-2.3) mg/dL 10/24/16 10/24/16 10/24/16 Range/Units 04:43 07:29 12:15 WBC 14.0 H (3.8-10.6) k/uL RBC 2.76 L (4.30-5.90) m/uL Hgb 8.6 L (13.0-17.5) gm/dL Hct 26.3 L (39.0-53.0) % RDW 17.3 H (11.5-15.5) % Neutrophils # (1.3-7.7) k/uL Lymphocytes # (1.0-4.8) k/uL PT (9.0-12.0) sec INR (<1.2) Sodium (137-145) mmol/L Carbon Dioxide (22-30) mmol/L BUN (9-20) mg/dL Creatinine (0.66-1.25) mg/dL Glucose (74-99) mg/dL POC Glucose (mg/dL) 198 H 194 H (75-99) mg/dL Calcium (8.4-10.2) mg/dL Magnesium (1.6-2.3) mg/dL Assessment and Plan (1) Fracture, intertrochanteric, right femur Status: Acute Plan: #1. Nonweightbearing to the right lower extremity. Continue physical therapy. #2. Continue routine postoperative care along with pain control. #3. Anticoagulation per medicine. Patient is currently on 5 mg of Coumadin daily. #4. Appreciated input from pulmonology and cardiology #5. We'll continue to follow the patient closely.
[2016-10-24] MEDS: LEVOFLOXACIN 250MG-D5W PMX 250 MG in DEXTROSE/WATER 1 50ML.BAG IVPB SCH (14:38)
[2016-10-24] MEDS: FUROSEMIDE 10 MG/ML 4 ML VIAL IV SCH ×2 (14:38→22:31)
--- NOTE | 2016-10-24 15:46 | P.PN ---
Subjective Progress note being dictated for Dr. Rebollar. Interval history: This is an 81-year-old gentleman admitted with right-sided hip fracture secondary to mechanical fall, in a patient with history of atrial fibrillation, legally blind, alcohol abuse and multiple other medical issues. Evaluated by orthopedics and surgery pending. Received vitamin K yesterday, INR currently 2.3 and received another dose of vitamin K. Mildly hyperkalemic at 5.4, [place] ordered. Worsened renal function, creatinine 2.48. Sodium 133. Denies chest pain, palpitations or increasing shortness of breath. 10/21/2016 status post right intertrochanteric nail fixation for hip fracture POD #1. Complaining of right hip pain. Desatted with labored breathing, though states not short of breath.Received Lasix, nebulized bronchodilators and placed on a nonrebreather initially. Chest x-ray reported bilateral areas of infiltrate and tiny effusion, underlying COPD. evaluated by Dr. Segal, transferred to ICU. Hemoglobin 8.4. Renal function improving. 10/22/16 maintained on antibiotics, nebulized bronchodilators. Slow improvement in respiratory function. Maintaining O2 sats of 91% on 5 L nasal cannula. Denies shortness of breath. VQ reporting low probability for PE, underlying COPD. chest x-ray noted. Maintained on CIWA protocol, possible early DTs. 10/23/2016 INR 1.0 on Coumadin. hemoglobin this morning 6.7, received one unit of packed RBC. Breathing continues to improve on nebulized bronchodilators with oxygen titrated down to 4 L nasal cannula. Afebrile. Pain controlled. Denies chest pain, palpitations or increasing shortness of breath.Antibiotics changed to Zosyn. ECHO pending. 10/24/2016. Maintained on antibiotics, nebulized bronchodilators,CIWA protocol. Afib, anticoagulated on Coumadin. INR 1.2. Anxious, becomes tachycardic and wheezy. Occasional cough. Chest x-ray suggestive of pulmonary edema. Afebrile. Maintaining O2 sats of 94% on 5 L high flow nasal cannula. Hemoglobin currently 8.6 after receiving 1 unit of packed RBCs yesterday. Objective - Vital Signs Vital signs: Vital Signs Temp 98.2 F 10/24/16 15:32 Pulse 82 10/24/16 15:32 Resp 28 H 10/24/16 15:32 BP 129/54 10/24/16 15:32 Pulse Ox 97 10/24/16 15:00 Intake & Output 10/23/16 10/24/16 10/24/16 18:59 06:59 18:59 Intake Total 2310 1400 350 Output Total 555 660 340 Balance 1755 740 10 Weight 85.5 kg 85.5 kg Intake: IV 1200 1400 350 Lactated Ringers 1,000 ml 500 @ 100 mls/hr IV .Q10H MAX Rx#:[id number] Potassium Chloride 10 meq 100 Lidocaine 2% Inj 10 mg In Sodium Chloride 0.9% 100 ml @ 100 mls/hr IV Q1HR MAX Rx#:[id number] Sodium Chloride 0.9% 1, 700 1300 350 000 ml @ 100 mls/hr IV . Q10H MAX Rx#:[id number] Oral 800 Blood Product 310 Rc As-1 Unit 310 [id number] Output: Urine 555 660 340 Other: Voiding Method Indwelling Catheter Indwelling Catheter Indwelling Catheter - Exam GENERAL: Sitting up in bed, alert and oriented 2-3, no acute distress HEENT: Conjunctivae normal. Oral mucosa moist. NECK: No JVD. No thyroid enlargement. No LNs CARDIOVASCULAR: S1, S2 muffled. No murmur, rub or gallop RESPIRATION: Respiratory effort mildly increased, Breath sounds diminished in the bases with bibasilar crackles, no wheezing currently. ABDOMEN: Soft, nontender . No guarding. no masses palpable. No ascites, No hepatosplenomegaly.Bowel sounds heard. Bruised, soft scrotum. NERVOUS SYSTEM: Cranial N 2-12 grossly normal. Diffuse weakness No focal deficits. Skin: no ulcer no rash Lymphatic system. No LN neck axilla or groin. - Labs CBC & Chem 7: 10/24/16 04:43 10/24/16 04:19 Labs: Abnormal Lab Results - Last 24 Hours (Table) 10/23/16 10/23/16 10/23/16 Range/Units 05:39 17:12 20:22 WBC (3.8-10.6) k/uL RBC 2.59 L (4.30-5.90) m/uL Hgb 7.7 L (13.0-17.5) gm/dL Hct 24.2 L (39.0-53.0) % RDW 17.2 H (11.5-15.5) % Neutrophils # 9.2 H (1.3-7.7) k/uL Lymphocytes # 0.6 L (1.0-4.8) k/uL PT (9.0-12.0) sec INR (<1.2) Sodium (137-145) mmol/L Carbon Dioxide (22-30) mmol/L BUN (9-20) mg/dL Creatinine (0.66-1.25) mg/dL Glucose (74-99) mg/dL POC Glucose (mg/dL) 203 H (75-99) mg/dL Hemoglobin A1c (4.2-6.1) % Calcium (8.4-10.2) mg/dL Magnesium (1.6-2.3) mg/dL Crossmatch See Detail 10/23/16 10/24/16 10/24/16 Range/Units 22:09 04:19 04:19 WBC (3.8-10.6) k/uL RBC (4.30-5.90) m/uL Hgb (13.0-17.5) gm/dL Hct (39.0-53.0) % RDW (11.5-15.5) % Neutrophils # (1.3-7.7) k/uL Lymphocytes # (1.0-4.8) k/uL PT (9.0-12.0) sec INR (<1.2) Sodium 134 L (137-145) mmol/L Carbon Dioxide 16 L (22-30) mmol/L BUN 61 H (9-20) mg/dL Creatinine 1.50 H (0.66-1.25) mg/dL Glucose 184 H (74-99) mg/dL POC Glucose (mg/dL) 199 H (75-99) mg/dL Hemoglobin A1c 6.2 H (4.2-6.1) % Calcium 8.3 L (8.4-10.2) mg/dL Magnesium 2.4 H (1.6-2.3) mg/dL Crossmatch 10/24/16 10/24/16 10/24/16 Range/Units 04:19 04:43 07:29 WBC 14.0 H (3.8-10.6) k/uL RBC 2.76 L (4.30-5.90) m/uL Hgb 8.6 L (13.0-17.5) gm/dL Hct 26.3 L (39.0-53.0) % RDW 17.3 H (11.5-15.5) % Neutrophils # (1.3-7.7) k/uL Lymphocytes # (1.0-4.8) k/uL PT 12.3 H (9.0-12.0) sec INR 1.2 H (<1.2) Sodium (137-145) mmol/L Carbon Dioxide (22-30) mmol/L BUN (9-20) mg/dL Creatinine (0.66-1.25) mg/dL Glucose (74-99) mg/dL POC Glucose (mg/dL) 198 H (75-99) mg/dL Hemoglobin A1c (4.2-6.1) % Calcium (8.4-10.2) mg/dL Magnesium (1.6-2.3) mg/dL Crossmatch 10/24/16 Range/Units 12:15 WBC (3.8-10.6) k/uL RBC (4.30-5.90) m/uL Hgb (13.0-17.5) gm/dL Hct (39.0-53.0) % RDW (11.5-15.5) % Neutrophils # (1.3-7.7) k/uL Lymphocytes # (1.0-4.8) k/uL PT (9.0-12.0) sec INR (<1.2) Sodium (137-145) mmol/L Carbon Dioxide (22-30) mmol/L BUN (9-20) mg/dL Creatinine (0.66-1.25) mg/dL Glucose (74-99) mg/dL POC Glucose (mg/dL) 194 H (75-99) mg/dL Hemoglobin A1c (4.2-6.1) % Calcium (8.4-10.2) mg/dL Magnesium (1.6-2.3) mg/dL Crossmatch Assessment and Plan Plan: 1. Right-sided hip fracture secondary to mechanical fall, status post surgical repair 2. Acute hypoxic respiratory failure secondary to acute COPD exacerbation and pulmonary edema. 3. Acute COPD exacerbation 4. Chronic, persistent Atrial fibrillation, 5. Legal blindness 6. Alcohol abuse, possible early DTs 7. Acute on chronic renal failure, stage III 8. hyponatremia, probably hypovolemic Plan: Continue on current medication regime , antibiotics, monitoring and symptomatic treatment. Maintain CIWA protocol. Aggressive pulmonary toileting. IV fluids discontinued, Lasix IVP initiated. Daily PT INR. Further recommendations to follow. The impression and plan of care has been dictated as directedas a adis Mcbride: I performed a H&P examination of this patient and discussed the same with the dictator. I agree with the dictator's note. Any additional findings/opinions/ etc. will be noted.
[2016-10-24 17:33] LABS: Glucose,Whole Blood 159 mg/dL (75-99)
[2016-10-24] MEDS: ONDANSETRON 4 MG/2 ML VIAL IVP PRN (17:34)
[2016-10-24] MEDS: SENNOSIDES-DOCUSATE SODIUM 1 EACH TAB PO SCH (20:21)
[2016-10-24] MEDS: WARFARIN 5 MG TAB PO SCH (20:21)
[2016-10-24 22:35] LABS: Glucose,Whole Blood 164 mg/dL (75-99)
[2016-10-25 04:54] LABS: Anisocytosis Slight; CH 30.5; CHCM 32.7; HCT 27.4 % (39.0-53.0); HDW 3.34; HGB 8.4 gm/dL (13.0-17.5); Hypochromasia Slight; MCHC 30.7 g/dL (31.0-37.0); MCV 94.2 fL (80.0-100.0); Macrocytosis Slight; Mean Platelet Volume 8.8; RBC 2.91 m/uL (4.30-5.90); RDW 18.2 % (11.5-15.5); WBC 13.7 k/uL (3.8-10.6)
[2016-10-25 05:11] LABS: Calcium 8.2 mg/dL (8.4-10.2); Magnesium 2.3 mg/dL (1.6-2.3)
[2016-10-25 05:25] LABS: INR 1.7 (<1.2); Prothrombin Time 16.7 sec (9.0-12.0)
[2016-10-25] MEDS: methylPREDNISolone SOD SUCCI 40 MG/ML 1 ML VIAL IV SCH ×3 (06:51→18:12)
--- NOTE | 2016-10-25 07:28 | XR ---
EXAMINATION TYPE: XR chest 1V portable DATE OF EXAM: 10/25/2016 COMPARISON: 10/24/2016 HISTORY: Shortness of breath TECHNIQUE: Single frontal view of the chest is obtained. FINDINGS: Again the heart is mildly enlarged and there are diffusely increased reticular interstitia l lung markings. Retrocardiac and left basilar opacity is similar to the prior as it now layers and d oes not demonstrate a fluid level. Degenerative changes are appreciated of the thoracic spine and acr omioclavicular joints. Old right-sided rib fractures are again noted. IMPRESSION: Overall similar sequela of decompensated congestive heart failure with interstitial pulm onary edema and layering of the small left pleural effusion with associated compressive atelectasis
[2016-10-25 07:45] LABS: Glucose,Whole Blood 166 mg/dL (75-99)
[2016-10-25] MEDS: HYDROcodone/APAP 10-325MG 1 EACH TAB PO PRN ×3 (08:16→20:21)
[2016-10-25] MEDS: ASPIRIN 81 MG PO SCH (08:17)
[2016-10-25] MEDS: ATORVASTATIN 40 MG TAB PO SCH (08:17)
[2016-10-25] MEDS: FUROSEMIDE 10 MG/ML 4 ML VIAL IV SCH (08:18)
[2016-10-25] MEDS: PANTOPRAZOLE 40 MG/10 ML VIAL IVP SCH (08:18)
[2016-10-25] MEDS: METOPROLOL TARTRATE 50 MG TAB PO SCH ×2 (08:18→20:21)
[2016-10-25] MEDS: NICOTINE 14MG/24HR PATCH TRANSDERM SCH (08:24)
[2016-10-25] MEDS: FORMOTEROL FUMARATE 20 MCG/2 ML NEBU INHALATION SCH ×2 (08:33→20:00)
[2016-10-25] MEDS: IPRATROPIUM-ALBUTEROL 3 ML NEB INHALATION SCH ×4 (08:33→20:00)
[2016-10-25] MEDS: BUDESONIDE 1 MG/2 ML NEBU INHALATION SCH ×2 (08:33→20:00)
--- NOTE | 2016-10-25 09:03 | P.PN ---
Subjective Principal diagnosis: This is a pleasant 81-year-old male who is status post right intertrochanteric nail fixation on 10/20/2016. This is postoperative day #5. Patient is currently in the ICU for hypoxia, history of COPD and cardiac issues. Patient states there is pain to the right hip and this is controlled with [place]. Patient denies any calf pain or swelling. Patient has no new complaints today. Objective - Vital Signs Vital signs: Vital Signs Temp 97.8 F 10/25/16 00:00 Pulse 114 H 10/25/16 08:49 Resp 18 10/25/16 06:00 BP 115/69 10/25/16 06:00 Pulse Ox 94 L 10/25/16 06:00 Intake & Output 10/24/16 10/25/16 10/25/16 18:59 06:59 18:59 Intake Total 680 740 Output Total 1035 885 Balance -355 -145 Weight 85.5 kg Intake: IV 630 740 Sodium Chloride 0.9% 1, 630 740 000 ml @ 100 mls/hr IV . Q10H MAX Rx#:[id number] Intake, IV Titration 50 Amount Levofloxacin 250Mg-D5w 50 Pmx 250 mg In Dextrose/ Water 1 50ml.bag @ 50 mls /hr IVPB Q24H MAX Rx#: [id number] Output: Urine 1035 885 Other: Voiding Method Indwelling Catheter Indwelling Catheter - Exam This is an 81-year-old gentleman in no acute distress. He is receiving oxygen per mask. Exam of the right hip reveals no erythema. There is serosanguineous drainage from the incisions. He has full foot and ankle motion without difficulty or pain. Neurovascular status to the lower extremities is intact. - Labs CBC & Chem 7: 10/25/16 04:07 10/25/16 04:07 Labs: Abnormal Lab Results - Last 24 Hours (Table) 10/23/16 10/24/16 10/24/16 Range/Units 05:39 04:19 12:15 WBC (3.8-10.6) k/uL RBC (4.30-5.90) m/uL Hgb (13.0-17.5) gm/dL Hct (39.0-53.0) % MCHC (31.0-37.0) g/dL RDW (11.5-15.5) % PT (9.0-12.0) sec INR (<1.2) Sodium (137-145) mmol/L Carbon Dioxide (22-30) mmol/L BUN (9-20) mg/dL Creatinine (0.66-1.25) mg/dL Glucose (74-99) mg/dL POC Glucose (mg/dL) 194 H (75-99) mg/dL Hemoglobin A1c 6.2 H (4.2-6.1) % Calcium (8.4-10.2) mg/dL Phosphorus (2.5-4.5) mg/dL Crossmatch See Detail 10/24/16 10/24/16 10/25/16 Range/Units 17:30 22:33 04:07 WBC (3.8-10.6) k/uL RBC (4.30-5.90) m/uL Hgb (13.0-17.5) gm/dL Hct (39.0-53.0) % MCHC (31.0-37.0) g/dL RDW (11.5-15.5) % PT (9.0-12.0) sec INR (<1.2) Sodium 136 L (137-145) mmol/L Carbon Dioxide 21 L (22-30) mmol/L BUN 63 H (9-20) mg/dL Creatinine 1.60 H (0.66-1.25) mg/dL Glucose 143 H (74-99) mg/dL POC Glucose (mg/dL) 159 H 164 H (75-99) mg/dL Hemoglobin A1c (4.2-6.1) % Calcium 8.2 L (8.4-10.2) mg/dL Phosphorus 5.0 H (2.5-4.5) mg/dL Crossmatch 10/25/16 10/25/16 10/25/16 Range/Units 04:07 04:07 07:43 WBC 13.7 H (3.8-10.6) k/uL RBC 2.91 L (4.30-5.90) m/uL Hgb 8.4 L (13.0-17.5) gm/dL Hct 27.4 L (39.0-53.0) % MCHC 30.7 L (31.0-37.0) g/dL RDW 18.2 H (11.5-15.5) % PT 16.7 H (9.0-12.0) sec INR 1.7 H (<1.2) Sodium (137-145) mmol/L Carbon Dioxide (22-30) mmol/L BUN (9-20) mg/dL Creatinine (0.66-1.25) mg/dL Glucose (74-99) mg/dL POC Glucose (mg/dL) 166 H (75-99) mg/dL Hemoglobin A1c (4.2-6.1) % Calcium (8.4-10.2) mg/dL Phosphorus (2.5-4.5) mg/dL Crossmatch Assessment and Plan (1) Fracture, intertrochanteric, right femur Status: Acute (2) EtOH dependence Status: Acute Plan: The clinical findings are discussed with the patient and nursing staff. Since he continues to have significant medical issues, we will transfer tending to internal medicine. He may be discharged from an orthopedic standpoint. We will continue to follow throughout his stay.
[2016-10-25] MEDS: INSULIN LISPRO (humaLOG) 300 UNIT/3 ML VIAL SQ SCH ×4 (10:00→20:28)
[2016-10-25] MEDS: CEFEPIME 2 GM in SODIUM CHLORIDE 0.9% 50 ML IVPB SCH ×2 (11:17→20:24)
[2016-10-25] MEDS: THIAMINE 100 MG TAB PO SCH ×2 (11:18→18:12)
[2016-10-25 12:42] LABS: ABG PCO2 29 mmHg (35-45); ABG PH 7.49 (7.35-7.45); ABG PO2 43 mmHg (83-108)
[2016-10-25 12:43] LABS: ABG HCO3 22 mmol/L (21-25)
[2016-10-25 12:45] LABS: ABG TCO2 0 mmol/L (19-24)
[2016-10-25 12:46] LABS: ABG Hematocrit 26 % (34.0-46.0); ABG Oxygen Saturation 80.7 % (94-97)
--- NOTE | 2016-10-25 12:51 | US ---
EXAMINATION TYPE: US chest DATE OF EXAM: 10/25/2016 COMPARISON: CXR from earlier today. CLINICAL HISTORY: pleural effusion on left; need markings. Left pleural effusion EXAM MEASUREMENTS: Left Pleural Effusion fluid pocket: 8.3 cm Left skin to fluid thickness: 4.8 cm Left side marked for possible thoracentesis outside the dept. Pulmonologists are able to review the images in the patient?s EMR. Small to moderate-sized left pleural effusion or fluid collection is confirmed on images saved which corresponds to the recent chest x-ray. IMPRESSIONS: As above
[2016-10-25] MEDS: LEVOFLOXACIN 250MG-D5W PMX 250 MG in DEXTROSE/WATER 1 50ML.BAG IVPB SCH (14:06)
[2016-10-25 14:08] LABS: Glucose,Whole Blood 175 mg/dL (75-99)
--- NOTE | 2016-10-25 14:51 | P.PN ---
Subjective This is an 81-year-old male. He apparently fell while at home and he fractured his right hip. He apparently has poor vision and falls frequently. His right hip fracture was repaired by one of the orthopedic surgeons a couple days ago, on 10/20/2016.. The patient apparently started having issues with his breathing and saturations overnight. For that reason, the patient was brought into the intensive care unit on 10/21/2016. The patient was seen in consultation by Dr Segal. The patient admitted that that he was having some respiratory distress although he denied everything else. His chest x-ray suggests bibasilar infiltrates and/or atelectasis. The patient was placed on high flow O2. His medical history includes among other things atrial fibrillation CVA hypertension DJD poor vision benign prostatic hypertrophy anemia and ileus. The patient also suffers from chronic renal failure. He is a chronic smoker. His troponins were minimally elevated with levels of 0.1, 0.0 0.5 respectively 3. His VQ scan was of a low probability. The patient had triple matched defects corresponding to airspace disease within the right middle lobe, right lower lobe and left lower lobe. I reviewed his chest x-rays postop and the patient has a right-sided fractures. Infiltration can be seen also on the lower lobes bilaterally. He has been maintained on oral Zithromax. He has remained afebrile throughout the hospitalization. The patient has also carotid artery disease that was confirmed back in 2014 by [facility] and the patient has approximately 50-69% stenosis of the left internal carotid artery. On 10/23/2016 the patient is on 4 L of oxygen by nasal cannula. He is not having any major respiratory distress. He is calm and comfortable. No reported aspiration. He is tolerating his diet fine and he swallows without any major difficulties. No chest pain. No fever. No chills. No night sweats. His morning hemoglobin was around 6.7. The patient was given a unit of packed RBC. Note that his admission hemoglobin was at 12.6. No evidence of any external GI bleeding. The surgical wound site is dry clean and intact. No evidence of any hematoma formation. The patient has no coagulopathy. He used to take Coumadin at home for chronic atrial fibrillation this was restarted yesterday. The PT/INR from this morning is 10.5 x 1.0 respectively. on 10/24/2016 I'm seeing this patient in follow-up. the patient is still recovering from his hip surgery. This morning it is on 8 L of oxygen by nasal cannula and his chest x-ray showing some limited infiltration of the lung bases. I started him on Levaquin yesterday. Minimal cough. Minimal chest congestion. No fever chills or night sweats. his hemoglobin is stable. The patient received a unit of packed RBC yesterday. His right thigh incision is clean and intact. He has developed some scrotal hematoma which probably is related to the surgery and I suspect that the patient may have had some bleeding within the thigh or within the retroperitoneum. In any rate, there is no evidence of any ongoing bleed and the hemoglobin is stable and the patient was started on anticoagulation with warfarin. His cardiac rhythm is still atrial fibrillation. The patient has a controlled rate. No hypotension. No change in mental status. His right hip is still nonweightbearing and he was able to participate in physical therapy yesterday. no signs of delirium tremens. On 10/25/2016 the patient is more short of breath compared to yesterday. Note that yesterday he was up to 8 L of oxygen nasal cannula and this morning it was brought up to 15 L. The pulse ox is not correlating and the blood gases will be needed to confirm the correlation between the pulse ox and the pO2. On today 's chest x-ray there is a dense consolidation of the left lung suspecting an underlying pneumonia. Overnight the patient was placed on diuretics 40 mg every 12 hours and he is in a negative fluid balance. He has put out more than 1.5 L of urine output and he is in a negative fluid balance. Surgical wound site is clean and intact. PT/INR is subtherapeutic. The patient remains in atrial fibrillation. He remains quite weak. No significant change in mental status. He is awake and alert and following commands and answering questions appropriately. He remains on bronchodilators [id number] with DuoNeb nebulized treatments, he is also on a combination of Perforomist and Pulmicort neb last 2 minutes twice a day, he is on IV Solu Medrol 40 mg every 6 hours, he is on Levaquin and cefepime will be added to broaden his antibiotic coverage. A pleural effusion was suspected also on the left and a ultrasound of the chest will be done. Objective - Vital Signs Vital signs: Vital Signs Temp 98.4 F 10/25/16 12:00 Pulse 103 H 10/25/16 13:00 Resp 17 10/25/16 13:00 BP 117/81 10/25/16 13:00 Pulse Ox 88 L 10/25/16 13:00 Intake & Output 10/24/16 10/25/16 10/25/16 18:59 06:59 18:59 Intake Total 680 740 90 Output Total 1035 885 480 Balance -355 -145 -390 Weight 85.5 kg Intake: IV 630 740 40 Sodium Chloride 0.9% 1, 630 740 40 000 ml @ 100 mls/hr IV . Q10H MAX Rx#:[id number] Intake, IV Titration 50 50 Amount Cefepime 2 gm In Sodium 50 Chloride 0.9% 50 ml @ 100 mls/hr IVPB Q12HR MAX Rx #:[id number] Levofloxacin 250Mg-D5w 50 Pmx 250 mg In Dextrose/ Water 1 50ml.bag @ 50 mls /hr IVPB Q24H MAX Rx#: [id number] Output: Urine 1035 885 480 Other: Voiding Method Indwelling Catheter Indwelling Catheter Indwelling Catheter - Exam Gen. appearance is calm, somewhat like a distress. His resting comfortably in bed.Head exam was generally normal. There was no scleral icterus or corneal arcus. Mucous membranes were moist.Neck was supple and without jugular venous distension, thyromegaly, or carotid bruits. Carotids were easily palpable bilaterally. There was no adenopathy.lungs sounds are diminished in lung bases bilaterally along with some bibasilar crackles. The breath sounds are more diminished on the left lung along with dullness to percussion. Heart sounds are irregular, positive S1-S2 and there is a faint systolic ejection murmur heard throughout the precordium.Abdominal exam revealed normal bowel sounds. The abdomen was soft, non-tender, and without masses, organomegaly, or appreciable enlargement of the abdominal aorta. There is evidence of scrotal hematoma. The scrotum is nonswollen at this point. Extremities are showing trace edema and there is no cyanosis or clubbing. His surgical wound site over the right hip area is dry clean and intact. Neurologically the patient is awake and following commands and answering questions appropriately. - Labs CBC & Chem 7: 10/25/16 04:07 10/25/16 04:07 Labs: Abnormal Lab Results - Last 24 Hours (Table) 10/23/16 10/24/16 10/24/16 Range/Units 05:39 17:30 22:33 WBC (3.8-10.6) k/uL RBC (4.30-5.90) m/uL Hgb (13.0-17.5) gm/dL Hct (39.0-53.0) % MCHC (31.0-37.0) g/dL RDW (11.5-15.5) % PT (9.0-12.0) sec INR (<1.2) ABG pH (7.35-7.45) ABG pCO2 (35-45) mmHg ABG pO2 (83-108) mmHg ABG Total CO2 (19-24) mmol/L ABG O2 Saturation (94-97) % ABG Hematocrit (34.0-46.0) % Sodium (137-145) mmol/L Carbon Dioxide (22-30) mmol/L BUN (9-20) mg/dL Creatinine (0.66-1.25) mg/dL Glucose (74-99) mg/dL POC Glucose (mg/dL) 159 H 164 H (75-99) mg/dL Calcium (8.4-10.2) mg/dL Phosphorus (2.5-4.5) mg/dL Crossmatch See Detail 10/25/16 10/25/16 10/25/16 Range/Units 04:07 04:07 04:07 WBC 13.7 H (3.8-10.6) k/uL RBC 2.91 L (4.30-5.90) m/uL Hgb 8.4 L (13.0-17.5) gm/dL Hct 27.4 L (39.0-53.0) % MCHC 30.7 L (31.0-37.0) g/dL RDW 18.2 H (11.5-15.5) % PT 16.7 H (9.0-12.0) sec INR 1.7 H (<1.2) ABG pH (7.35-7.45) ABG pCO2 (35-45) mmHg ABG pO2 (83-108) mmHg ABG Total CO2 (19-24) mmol/L ABG O2 Saturation (94-97) % ABG Hematocrit (34.0-46.0) % Sodium 136 L (137-145) mmol/L Carbon Dioxide 21 L (22-30) mmol/L BUN 63 H (9-20) mg/dL Creatinine 1.60 H (0.66-1.25) mg/dL Glucose 143 H (74-99) mg/dL POC Glucose (mg/dL) (75-99) mg/dL Calcium 8.2 L (8.4-10.2) mg/dL Phosphorus 5.0 H (2.5-4.5) mg/dL Crossmatch 10/25/16 10/25/16 10/25/16 Range/Units 07:43 12:41 14:05 WBC (3.8-10.6) k/uL RBC (4.30-5.90) m/uL Hgb (13.0-17.5) gm/dL Hct (39.0-53.0) % MCHC (31.0-37.0) g/dL RDW (11.5-15.5) % PT (9.0-12.0) sec INR (<1.2) ABG pH 7.49 H (7.35-7.45) ABG pCO2 29 L (35-45) mmHg ABG pO2 43 L* (83-108) mmHg ABG Total CO2 0 L (19-24) mmol/L ABG O2 Saturation 80.7 L (94-97) % ABG Hematocrit 26 L (34.0-46.0) % Sodium (137-145) mmol/L Carbon Dioxide (22-30) mmol/L BUN (9-20) mg/dL Creatinine (0.66-1.25) mg/dL Glucose (74-99) mg/dL POC Glucose (mg/dL) 166 H 175 H (75-99) mg/dL Calcium (8.4-10.2) mg/dL Phosphorus (2.5-4.5) mg/dL Crossmatch Assessment and Plan Plan: Assessment 1 acute dyspnea /hypoxemia, currently under investigation. The patient has developed bilateral pulmonary infiltrates more so in the lower lobes. Rule out aspiration pneumonia. Rule out atelectasis.. The VQ scan was negative for pulmonary embolism and it came back at a low probability. on 10/24/2016 the patient is still on high flow oxygen 8 L/m nasal cannula. The patient using incentive spirometer. Chest x-ray findings are stable. The patient is not having any significant respiratory distress. The FiO2 will be gradually weaned down. On 10/25/2016 the patient is more hypoxic compared yesterday. The patient is up to 15 L of oxygen nasal cannula. He is comfortable. His chest x-ray showing a consolidation and possibly effusion of the left lung. Will need a blood gas to confirm the hypoxemia and make sure it's correlating with pulse ox. We'll need also a ultrasound of the chest to rule out any left-sided pleural effusion. Meanwhile the patient was diuresed adequately over the past 24 hours. Antibiotics is to be brought up further. 2 troponin leak, free of any chest pain. Rule out underlying non-STEMI 3 right hip ORIF, postop day #5 4 frequent falls 5 right-sided fractures related to falls 6 Chronic atrial fibrillation, rate is controlled for now 7 CVA, history of 8 hypertension 9 macular degeneration 10 osteoarthritis 11 BPH 12 chronic renal failure, creatinine remains stable, and it's improving and the creatinine is down to 1.6 13 anemia. The hemoglobin is stable at 8.4 and the patient received a unit of packed RBC 2 days ago. 14 carotid artery stenosis, history of 15 smoker 16 abdominal aortic aneurysm that has been repaired 17 alcoholism and the patient drinks 30 beers a week, average is around 4-6 beers on a daily basis Plan Echo blood gases while the patient on 15 L of oxygen by nasal cannula. Check a ultrasound of the chest and marked for any sizable effusion. May consider thoracentesis if there is a considerable amount of left-sided pleural effusion. Meanwhile the patient INR is subtherapeutic at 1.7 and he is being anticoagulated for our protocol. His antibiotics will be broadened and the patient will be placed on a combination of cefepime and Levaquin. Sputum Gram stain and culture will be difficult to obtain however we should if it's possible. He has made himself a DNR/DNI which I think is reasonable. We'll continue to follow.
[2016-10-25 17:20] LABS: Glucose,Whole Blood 168 mg/dL (75-99)
[2016-10-25] MEDS: WARFARIN 5 MG TAB PO SCH (18:12)
[2016-10-25] MEDS: SENNOSIDES-DOCUSATE SODIUM 1 EACH TAB PO SCH (20:25)
[2016-10-25 20:30] LABS: Glucose,Whole Blood 157 mg/dL (75-99)
[2016-10-26] MEDS: methylPREDNISolone SOD SUCCI 40 MG/ML 1 ML VIAL IV SCH ×5 (01:13→23:51)
[2016-10-26 04:55] LABS: Anisocytosis Slight; CH 30.8; CHCM 34.1; HDW 3.45; Hypochromasia Slight; MCH 29.3 pg (25.0-35.0); MCHC 32.1 g/dL (31.0-37.0); MCV 91.4 fL (80.0-100.0); Poikilocytosis Slight; RBC 3.06 m/uL (4.30-5.90); RDW 18.7 % (11.5-15.5); WBC 17.9 k/uL (3.8-10.6)
[2016-10-26 05:09] LABS: Calcium 8.2 mg/dL (8.4-10.2); Magnesium 2.3 mg/dL (1.6-2.3); Phosphorous 5.4 mg/dL (2.5-4.5); Potassium 3.9 mmol/L (3.5-5.1)
[2016-10-26 05:15] LABS: INR 2.8 (<1.2); Prothrombin Time 26.9 sec (9.0-12.0)
[2016-10-26] MEDS ORDERED: Potassium Replacement Protocol 1 EACH MISC MISCELLANE PRN (05:21)
[2016-10-26] MEDS: POTASSIUM CHLORIDE 10 MEQ, LIDOCAINE 2% INJ 10 MG in SODIUM CHLORIDE 0.9% 100 ML IV SCH ×2 (06:03→07:14)
--- NOTE | 2016-10-26 07:14 | XR ---
EXAMINATION TYPE: XR chest 1V portable DATE OF EXAM: 10/26/2016 HISTORY: shortness of breath. REFERENCE: Previous study dated 10/25/2016. FINDINGS: There continues to be cardiomegaly. There is persistent infiltrate at the left lung base. V asculature is normal. No definite edema is seen. Note is made of multiple right-sided rib fractures w hich are old. I suspect a small left effusion. IMPRESSION: 1. CARDIOMEGALY. 2. PERSISTENT LEFT BASILAR AIRSPACE DISEASE. 3. SMALL LEFT EFFUSION.
[2016-10-26 07:30] LABS: Glucose,Whole Blood 220 mg/dL (75-99)
[2016-10-26] MEDS: FORMOTEROL FUMARATE 20 MCG/2 ML NEBU INHALATION SCH ×2 (08:25→20:47)
[2016-10-26] MEDS: BUDESONIDE 1 MG/2 ML NEBU INHALATION SCH ×2 (08:25→20:47)
[2016-10-26] MEDS: IPRATROPIUM-ALBUTEROL 3 ML NEB INHALATION SCH ×4 (08:25→20:47)
[2016-10-26] MEDS: INSULIN LISPRO (humaLOG) 300 UNIT/3 ML VIAL SQ SCH ×4 (08:34→21:22)
[2016-10-26] MEDS: PANTOPRAZOLE 40 MG/10 ML VIAL IVP SCH (08:34)
[2016-10-26] MEDS: ATORVASTATIN 40 MG TAB PO SCH (08:35)
[2016-10-26] MEDS: NICOTINE 14MG/24HR PATCH TRANSDERM SCH (08:35)
[2016-10-26] MEDS: ASPIRIN 81 MG PO SCH (08:35)
[2016-10-26] MEDS: METOPROLOL TARTRATE 50 MG TAB PO SCH (08:36)
[2016-10-26] MEDS: THIAMINE 100 MG TAB PO SCH ×2 (08:36→16:53)
[2016-10-26] MEDS: CEFEPIME 2 GM in SODIUM CHLORIDE 0.9% 50 ML IVPB SCH ×2 (08:39→21:23)
[2016-10-26] MEDS: HYDROcodone/APAP 10-325MG 1 EACH TAB PO PRN (08:45)
--- NOTE | 2016-10-26 08:57 | P.PN ---
Subjective Principal diagnosis: This is a pleasant 81-year-old male who is status post right intertrochanteric nail fixation on 10/20/2016. This is postoperative day #6. Patient is currently in the ICU for hypoxia, history of COPD and cardiac issues. Patient states there is pain to the right hip and this is controlled with Nazlini. Patient denies any calf pain or swelling. Patient has no new complaints today. Objective - Vital Signs Vital signs: Vital Signs Temp 98.1 F 10/26/16 00:00 Pulse 96 10/26/16 08:42 Resp 15 10/26/16 07:00 BP 131/75 10/26/16 07:00 Pulse Ox 95 10/26/16 08:25 Intake & Output 10/25/16 10/26/16 10/26/16 18:59 06:59 18:59 Intake Total 170 325 200 Output Total 1180 715 75 Balance -1010 -390 125 Weight 85.5 kg 85.2 kg Intake: IV 40 Sodium Chloride 0.9% 1, 40 000 ml @ 100 mls/hr IV . Q10H MAX Rx#:[id number] Intake, IV Titration 130 100 200 Amount Cefepime 2 gm In Sodium 50 100 Chloride 0.9% 50 ml @ 100 mls/hr IVPB Q12HR MAX Rx #:[id number] Levofloxacin 250Mg-D5w 50 Pmx 250 mg In Dextrose/ Water 1 50ml.bag @ 50 mls /hr IVPB Q24H MAX Rx#: [id number] Potassium Chloride 10 meq 200 Lidocaine 2% Inj 10 mg In Sodium Chloride 0.9% 100 ml @ 100 mls/hr IV Q1HR MAX Rx#:[id number] Sodium Chloride 0.9% 1, 30 000 ml @ 20 mls/hr IV . Q24H MAX Rx#:[id number] Oral 225 Output: Urine 1180 715 75 Other: Voiding Method Indwelling Catheter Indwelling Catheter - Exam This is an 81-year-old gentleman in no acute distress. He is receiving oxygen per nasal cannula. Exam of the right hip reveals no erythema. There is serosanguineous drainage from the incisions. He has full foot and ankle motion without difficulty or pain. Neurovascular status to the lower extremities is intact. - Labs CBC & Chem 7: 10/26/16 04:27 10/26/16 04:27 Labs: Abnormal Lab Results - Last 24 Hours (Table) 10/25/16 10/25/16 10/25/16 Range/Units 12:41 14:05 17:17 WBC (3.8-10.6) k/uL RBC (4.30-5.90) m/uL Hgb (13.0-17.5) gm/dL Hct (39.0-53.0) % RDW (11.5-15.5) % PT (9.0-12.0) sec INR (<1.2) ABG pH 7.49 H (7.35-7.45) ABG pCO2 29 L (35-45) mmHg ABG pO2 43 L* (83-108) mmHg ABG Total CO2 0 L (19-24) mmol/L ABG O2 Saturation 80.7 L (94-97) % ABG Hematocrit 26 L (34.0-46.0) % Sodium (137-145) mmol/L BUN (9-20) mg/dL Creatinine (0.66-1.25) mg/dL Glucose (74-99) mg/dL POC Glucose (mg/dL) 175 H 168 H (75-99) mg/dL Calcium (8.4-10.2) mg/dL Phosphorus (2.5-4.5) mg/dL 10/25/16 10/26/16 10/26/16 Range/Units 20:28 04:27 04:27 WBC (3.8-10.6) k/uL RBC (4.30-5.90) m/uL Hgb (13.0-17.5) gm/dL Hct (39.0-53.0) % RDW (11.5-15.5) % PT 26.9 H (9.0-12.0) sec INR 2.8 H (<1.2) ABG pH (7.35-7.45) ABG pCO2 (35-45) mmHg ABG pO2 (83-108) mmHg ABG Total CO2 (19-24) mmol/L ABG O2 Saturation (94-97) % ABG Hematocrit (34.0-46.0) % Sodium 135 L (137-145) mmol/L BUN 71 H (9-20) mg/dL Creatinine 1.70 H (0.66-1.25) mg/dL Glucose 193 H (74-99) mg/dL POC Glucose (mg/dL) 157 H (75-99) mg/dL Calcium 8.2 L (8.4-10.2) mg/dL Phosphorus 5.4 H (2.5-4.5) mg/dL 10/26/16 10/26/16 Range/Units 04:27 07:27 WBC 17.9 H (3.8-10.6) k/uL RBC 3.06 L (4.30-5.90) m/uL Hgb 9.0 L (13.0-17.5) gm/dL Hct 28.0 L (39.0-53.0) % RDW 18.7 H (11.5-15.5) % PT (9.0-12.0) sec INR (<1.2) ABG pH (7.35-7.45) ABG pCO2 (35-45) mmHg ABG pO2 (83-108) mmHg ABG Total CO2 (19-24) mmol/L ABG O2 Saturation (94-97) % ABG Hematocrit (34.0-46.0) % Sodium (137-145) mmol/L BUN (9-20) mg/dL Creatinine (0.66-1.25) mg/dL Glucose (74-99) mg/dL POC Glucose (mg/dL) 220 H (75-99) mg/dL Calcium (8.4-10.2) mg/dL Phosphorus (2.5-4.5) mg/dL Assessment and Plan (1) Fracture, intertrochanteric, right femur Status: Acute (2) EtOH dependence Status: Acute Plan: The clinical findings are discussed with the patient and nursing staff. He may be discharged from an orthopedic standpoint. We will continue to follow throughout his stay.
--- NOTE | 2016-10-26 11:31 | XR ---
EXAMINATION TYPE: XR abdomen 2V , 3 VIEWS DATE OF EXAM ORDERED: 10/26/2016 HISTORY: ileus. COMPARISON: None. 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 The lung bases are clear. There are dilated loops of small bowel throughout the abdomen. There continues to be some colonic air . There is no colonic distention. There is extensive vascular calcification. There is degenerative change within the lumbar spine. IMPRESSION: SMALL BOWEL ILEUS VERSUS EARLY SMALL BOWEL OBSTRUCTION.
[2016-10-26 12:14] LABS: Glucose,Whole Blood 150 mg/dL (75-99)
--- NOTE | 2016-10-26 12:37 | P.PN ---
Subjective nterval history: This is an 81-year-old gentleman admitted with right-sided hip fracture secondary to mechanical fall, in a patient with history of atrial fibrillation, legally blind, alcohol abuse and multiple other medical issues. Evaluated by orthopedics and surgery pending. Received vitamin K yesterday, INR currently 2.3 and received another dose of vitamin K. Mildly hyperkalemic at 5.4, Kayexalate ordered. Worsened renal function, creatinine 2.48. Sodium 133. Denies chest pain, palpitations or increasing shortness of breath. 10/21/2016 status post right intertrochanteric nail fixation for hip fracture POD #1. Complaining of right hip pain. Desatted with labored breathing, though states not short of breath.Received Lasix, nebulized bronchodilators and placed on a nonrebreather initially. Chest x-ray reported bilateral areas of infiltrate and tiny effusion, underlying COPD. evaluated by Dr. Segal, transferred to ICU. Hemoglobin 8.4. Renal function improving. 10/22/16 maintained on antibiotics, nebulized bronchodilators. Slow improvement in respiratory function. Maintaining O2 sats of 91% on 5 L nasal cannula. Denies shortness of breath. VQ reporting low probability for PE, underlying COPD. chest x-ray noted. Maintained on CIWA protocol, possible early DTs. 10/23/2016 INR 1.0 on Coumadin. hemoglobin this morning 6.7, received one unit of packed RBC. Breathing continues to improve on nebulized bronchodilators with oxygen titrated down to 4 L nasal cannula. Afebrile. Pain controlled. Denies chest pain, palpitations or increasing shortness of breath.Antibiotics changed to Zosyn. ECHO pending. 10/24/2016. Maintained on antibiotics, nebulized bronchodilators,CIWA protocol. Afib, anticoagulated on Coumadin. INR 1.2. Anxious, becomes tachycardic and wheezy. Occasional cough. Chest x-ray suggestive of pulmonary edema. Afebrile. Maintaining O2 sats of 94% on 5 L high flow nasal cannula. Hemoglobin currently 8.6 after receiving 1 unit of packed RBCs yesterday. 10/26/2016 Patient remains in high flow mask cannula oxygen and patient chest x-ray is consistent with left lower lobe pneumonia patient is on cefepime. Patient did not have any significant improvement in spite of aggressive medical therapy because of which I had discussion with the patient who can make his own patient as well as family members regarding comfort care. Plan is to continue the present care. There is no significant improvement by tomorrow probably consideration for hospice should be the plan of care and same thing was discussed with the family meantime will Jf consult palliative care for further evaluation. Patient's INR is 2.8 Coumadin will be discontinued repeat INR tomorrow. Objective - Vital Signs Vital signs: Vital Signs Temp 98.1 F 10/26/16 08:00 Pulse 101 H 10/26/16 11:34 Resp 35 H 10/26/16 11:00 BP 130/83 10/26/16 11:00 Pulse Ox 93 L 10/26/16 11:00 Intake & Output 10/25/16 10/26/16 10/26/16 18:59 06:59 18:59 Intake Total 170 325 330 Output Total 1180 715 235 Balance -1010 -390 95 Weight 85.5 kg 85.2 kg 85.2 kg Intake: IV 40 130 0.9 30 Cefepime 2 gm In Sodium 100 Chloride 0.9% 50 ml @ 100 mls/hr IVPB Q12HR MAX Rx #:[id number] Sodium Chloride 0.9% 1, 40 000 ml @ 100 mls/hr IV . Q10H MAX Rx#:[id number] Intake, IV Titration 130 100 200 Amount Cefepime 2 gm In Sodium 50 100 Chloride 0.9% 50 ml @ 100 mls/hr IVPB Q12HR MAX Rx #:[id number] Levofloxacin 250Mg-D5w 50 Pmx 250 mg In Dextrose/ Water 1 50ml.bag @ 50 mls /hr IVPB Q24H MAX Rx#: [id number] Potassium Chloride 10 meq 200 Lidocaine 2% Inj 10 mg In Sodium Chloride 0.9% 100 ml @ 100 mls/hr IV Q1HR MAX Rx#:[id number] Sodium Chloride 0.9% 1, 30 000 ml @ 20 mls/hr IV . Q24H MAX Rx#:[id number] Oral 225 Output: Urine 1180 715 235 Other: Voiding Method Indwelling Catheter Indwelling Catheter Indwelling Catheter - Exam GENERAL: Sitting up in bed, alert and oriented 2-3, no acute distress HEENT: Conjunctivae normal. Oral mucosa moist. NECK: No JVD. No thyroid enlargement. No LNs CARDIOVASCULAR: S1, S2 muffled. No murmur, rub or gallop RESPIRATION: Respiratory effort mildly increased, Breath sounds diminished in the bases with bibasilar crackles, no wheezing currently. ABDOMEN: Soft, nontender . No guarding. no masses palpable. No ascites, No hepatosplenomegaly.Bowel sounds heard. Bruised, soft scrotum. NERVOUS SYSTEM: Cranial N 2-12 grossly normal. Diffuse weakness No focal deficits. Skin: no ulcer no rash Lymphatic system. No LN neck axilla or groin. - Labs CBC & Chem 7: 10/26/16 04:27 10/26/16 11:57 Labs: Abnormal Lab Results - Last 24 Hours (Table) 10/25/16 10/25/16 10/25/16 Range/Units 12:41 14:05 17:17 WBC (3.8-10.6) k/uL RBC (4.30-5.90) m/uL Hgb (13.0-17.5) gm/dL Hct (39.0-53.0) % RDW (11.5-15.5) % PT (9.0-12.0) sec INR (<1.2) ABG pH 7.49 H (7.35-7.45) ABG pCO2 29 L (35-45) mmHg ABG pO2 43 L* (83-108) mmHg ABG Total CO2 0 L (19-24) mmol/L ABG O2 Saturation 80.7 L (94-97) % ABG Hematocrit 26 L (34.0-46.0) % Sodium (137-145) mmol/L BUN (9-20) mg/dL Creatinine (0.66-1.25) mg/dL Glucose (74-99) mg/dL POC Glucose (mg/dL) 175 H 168 H (75-99) mg/dL Calcium (8.4-10.2) mg/dL Phosphorus (2.5-4.5) mg/dL 10/25/16 10/26/16 10/26/16 Range/Units 20:28 04:27 04:27 WBC (3.8-10.6) k/uL RBC (4.30-5.90) m/uL Hgb (13.0-17.5) gm/dL Hct (39.0-53.0) % RDW (11.5-15.5) % PT 26.9 H (9.0-12.0) sec INR 2.8 H (<1.2) ABG pH (7.35-7.45) ABG pCO2 (35-45) mmHg ABG pO2 (83-108) mmHg ABG Total CO2 (19-24) mmol/L ABG O2 Saturation (94-97) % ABG Hematocrit (34.0-46.0) % Sodium 135 L (137-145) mmol/L BUN 71 H (9-20) mg/dL Creatinine 1.70 H (0.66-1.25) mg/dL Glucose 193 H (74-99) mg/dL POC Glucose (mg/dL) 157 H (75-99) mg/dL Calcium 8.2 L (8.4-10.2) mg/dL Phosphorus 5.4 H (2.5-4.5) mg/dL 10/26/16 10/26/16 10/26/16 Range/Units 04:27 07:27 12:10 WBC 17.9 H (3.8-10.6) k/uL RBC 3.06 L (4.30-5.90) m/uL Hgb 9.0 L (13.0-17.5) gm/dL Hct 28.0 L (39.0-53.0) % RDW 18.7 H (11.5-15.5) % PT (9.0-12.0) sec INR (<1.2) ABG pH (7.35-7.45) ABG pCO2 (35-45) mmHg ABG pO2 (83-108) mmHg ABG Total CO2 (19-24) mmol/L ABG O2 Saturation (94-97) % ABG Hematocrit (34.0-46.0) % Sodium (137-145) mmol/L BUN (9-20) mg/dL Creatinine (0.66-1.25) mg/dL Glucose (74-99) mg/dL POC Glucose (mg/dL) 220 H 150 H (75-99) mg/dL Calcium (8.4-10.2) mg/dL Phosphorus (2.5-4.5) mg/dL Assessment and Plan Plan: #1 acute hypoxic respiratory failure: Secondary to left lower lobe pneumonia and possibility of sepsis in patient is presently on cefepime and high flow mask cannula oxygen. Patient has no significant improvement in spite of maximal medical therapy concerning his age and an aggressive medical therapy because of nonimprovement it's reasonable that patient is palliative care, comfort care and hospice. Patient is agreeable with that plan. 2. Right-sided hip fracture secondary to mechanical fall, status post surgical repair 3. Acute COPD exacerbation: Patient is on systemic steroids inhalational treatments 4. Chronic, persistent Atrial fibrillation, on Coumadin INR 2.8 concern is worsening INR by tomorrow because of which Coumadin was discontinued 5. Legal blindness 6. Alcohol abuse, no DTs at this time 7. Acute on chronic renal failure, stage III 8. hyponatremia, probably hypovolemic which improved
[2016-10-26] MEDS ORDERED: LEVOFLOXACIN 250 MG TAB PO SCH (14:00)
--- NOTE | 2016-10-26 14:02 | P.PN ---
Subjective This is an 81-year-old male. He apparently fell while at home and he fractured his right hip. He apparently has poor vision and falls frequently. His right hip fracture was repaired by one of the orthopedic surgeons a couple days ago, on 10/20/2016.. The patient apparently started having issues with his breathing and saturations overnight. For that reason, the patient was brought into the intensive care unit on 10/21/2016. The patient was seen in consultation by Dr Segal. The patient admitted that that he was having some respiratory distress although he denied everything else. His chest x-ray suggests bibasilar infiltrates and/or atelectasis. The patient was placed on high flow O2. His medical history includes among other things atrial fibrillation CVA hypertension DJD poor vision benign prostatic hypertrophy anemia and ileus. The patient also suffers from chronic renal failure. He is a chronic smoker. His troponins were minimally elevated with levels of 0.1, 0.0 0.5 respectively 3. His VQ scan was of a low probability. The patient had triple matched defects corresponding to airspace disease within the right middle lobe, right lower lobe and left lower lobe. I reviewed his chest x-rays postop and the patient has a right-sided fractures. Infiltration can be seen also on the lower lobes bilaterally. He has been maintained on oral Zithromax. He has remained afebrile throughout the hospitalization. The patient has also carotid artery disease that was confirmed back in 2014 by [facility] and the patient has approximately 50-69% stenosis of the left internal carotid artery. On 10/23/2016 the patient is on 4 L of oxygen by nasal cannula. He is not having any major respiratory distress. He is calm and comfortable. No reported aspiration. He is tolerating his diet fine and he swallows without any major difficulties. No chest pain. No fever. No chills. No night sweats. His morning hemoglobin was around 6.7. The patient was given a unit of packed RBC. Note that his admission hemoglobin was at 12.6. No evidence of any external GI bleeding. The surgical wound site is dry clean and intact. No evidence of any hematoma formation. The patient has no coagulopathy. He used to take Coumadin at home for chronic atrial fibrillation this was restarted yesterday. The PT/INR from this morning is 10.5 x 1.0 respectively. on 10/24/2016 I'm seeing this patient in follow-up. the patient is still recovering from his hip surgery. This morning it is on 8 L of oxygen by nasal cannula and his chest x-ray showing some limited infiltration of the lung bases. I started him on Levaquin yesterday. Minimal cough. Minimal chest congestion. No fever chills or night sweats. his hemoglobin is stable. The patient received a unit of packed RBC yesterday. His right thigh incision is clean and intact. He has developed some scrotal hematoma which probably is related to the surgery and I suspect that the patient may have had some bleeding within the thigh or within the retroperitoneum. In any rate, there is no evidence of any ongoing bleed and the hemoglobin is stable and the patient was started on anticoagulation with warfarin. His cardiac rhythm is still atrial fibrillation. The patient has a controlled rate. No hypotension. No change in mental status. His right hip is still nonweightbearing and he was able to participate in physical therapy yesterday. no signs of delirium tremens. On 10/25/2016 the patient is more short of breath compared to yesterday. Note that yesterday he was up to 8 L of oxygen nasal cannula and this morning it was brought up to 15 L. The pulse ox is not correlating and the blood gases will be needed to confirm the correlation between the pulse ox and the pO2. On today 's chest x-ray there is a dense consolidation of the left lung suspecting an underlying pneumonia. Overnight the patient was placed on diuretics 40 mg every 12 hours and he is in a negative fluid balance. He has put out more than 1.5 L of urine output and he is in a negative fluid balance. Surgical wound site is clean and intact. PT/INR is subtherapeutic. The patient remains in atrial fibrillation. He remains quite weak. No significant change in mental status. He is awake and alert and following commands and answering questions appropriately. He remains on bronchodilators [id number] with DuoNeb nebulized treatments, he is also on a combination of Perforomist and Pulmicort neb last 2 minutes twice a day, he is on IV Solu Medrol 40 mg every 6 hours, he is on Levaquin and cefepime will be added to broaden his antibiotic coverage. A pleural effusion was suspected also on the left and a ultrasound of the chest will be done. On 10/26/2016 I'm seeing this patient in follow-up in the intensive care unit. His condition is a bit worse compared to yesterday. He has become more hypoxic. Note that he was on 8 L of oxygen nasal cannula earlier and was placed on high flow oxygen currently running at 60 L. The current pulse ox is around 95%. Chest x-ray shows a dense consolidation of the left lower lobe and the patient remains on a combination of cefepime and Levaquin. Ultrasound of the chest was done and small pocket of pleural effusions also marked on the left. Hemodynamically stable. No hypotension. No pressor use. He remains in atrial fibrillation. His abdomen is slightly distended on today's evaluation and the flat film of the abdomen shows dilated loops of small bowel throughout the abdomen and there is some colonic care without any colonic distention. This is consistent with small bowel ileus versus early small bowel obstruction. The patient is unable to eat for now and he is currently nothing by mouth. His INR is therapeutic at 2.8. Hemoglobin stable at 9.0. Renal function is also stable at creatinine of 1.7. Very weak. Debilitated. Awake. Following commands. Requesting a DNR/DNI CODE STATUS. Objective - Vital Signs Vital signs: Vital Signs Temp 98.1 F 10/26/16 08:00 Pulse 101 H 10/26/16 11:34 Resp 35 H 10/26/16 11:00 BP 130/83 10/26/16 11:00 Pulse Ox 95 10/26/16 13:40 Intake & Output 10/25/16 10/26/16 10/26/16 18:59 06:59 18:59 Intake Total 170 325 360 Output Total 1180 715 431 Balance -1010 -390 -71 Weight 85.5 kg 85.2 kg 85.2 kg Intake: IV 40 160 0.9 60 Cefepime 2 gm In Sodium 100 Chloride 0.9% 50 ml @ 100 mls/hr IVPB Q12HR MAX Rx #:[id number] Sodium Chloride 0.9% 1, 40 000 ml @ 100 mls/hr IV . Q10H MAX Rx#:[id number] Intake, IV Titration 130 100 200 Amount Cefepime 2 gm In Sodium 50 100 Chloride 0.9% 50 ml @ 100 mls/hr IVPB Q12HR MAX Rx #:[id number] Levofloxacin 250Mg-D5w 50 Pmx 250 mg In Dextrose/ Water 1 50ml.bag @ 50 mls /hr IVPB Q24H MAX Rx#: [id number] Potassium Chloride 10 meq 200 Lidocaine 2% Inj 10 mg In Sodium Chloride 0.9% 100 ml @ 100 mls/hr IV Q1HR MAX Rx#:[id number] Sodium Chloride 0.9% 1, 30 000 ml @ 20 mls/hr IV . Q24H MAX Rx#:[id number] Oral 225 Output: Urine 1180 715 431 Other: Voiding Method Indwelling Catheter Indwelling Catheter Indwelling Catheter - Exam Gen. appearance is calm, somewhat a mild degree of respiratory distress. The patient is also wearing a high flow oxygen through nasal cannula at 6 L. His resting comfortably in bed.Head exam was generally normal. There was no scleral icterus or corneal arcus. Mucous membranes were moist.Neck was supple and without jugular venous distension, thyromegaly, or carotid bruits. Carotids were easily palpable bilaterally. There was no adenopathy.lungs sounds are diminished in lung bases bilaterally along with some bibasilar crackles. The breath sounds are more diminished on the left lung along with dullness to percussion. Heart sounds are irregular, positive S1-S2 and there is a faint systolic ejection murmur heard throughout the precordium.Abdominal exam revealed normal bowel sounds. The abdomen is distended and the patient has diminished bowel sounds and there is tympany upon palpation and percussion. The abdominal exam also shows no masses, organomegaly, or appreciable enlargement of the abdominal aorta. There is evidence of scrotal hematoma. The scrotum is nonswollen at this point. Extremities are showing trace edema and there is no cyanosis or clubbing. His surgical wound site over the right hip area is dry clean and intact. Neurologically the patient is awake and following commands and answering questions appropriately. - Labs CBC & Chem 7: 10/26/16 04:27 10/26/16 11:57 Labs: Abnormal Lab Results - Last 24 Hours (Table) 10/25/16 10/25/16 10/25/16 Range/Units 14:05 17:17 20:28 WBC (3.8-10.6) k/uL RBC (4.30-5.90) m/uL Hgb (13.0-17.5) gm/dL Hct (39.0-53.0) % RDW (11.5-15.5) % PT (9.0-12.0) sec INR (<1.2) Sodium (137-145) mmol/L BUN (9-20) mg/dL Creatinine (0.66-1.25) mg/dL Glucose (74-99) mg/dL POC Glucose (mg/dL) 175 H 168 H 157 H (75-99) mg/dL Calcium (8.4-10.2) mg/dL Phosphorus (2.5-4.5) mg/dL 10/26/16 10/26/16 10/26/16 Range/Units 04:27 04:27 04:27 WBC 17.9 H (3.8-10.6) k/uL RBC 3.06 L (4.30-5.90) m/uL Hgb 9.0 L (13.0-17.5) gm/dL Hct 28.0 L (39.0-53.0) % RDW 18.7 H (11.5-15.5) % PT 26.9 H (9.0-12.0) sec INR 2.8 H (<1.2) Sodium 135 L (137-145) mmol/L BUN 71 H (9-20) mg/dL Creatinine 1.70 H (0.66-1.25) mg/dL Glucose 193 H (74-99) mg/dL POC Glucose (mg/dL) (75-99) mg/dL Calcium 8.2 L (8.4-10.2) mg/dL Phosphorus 5.4 H (2.5-4.5) mg/dL 10/26/16 10/26/16 Range/Units 07:27 12:10 WBC (3.8-10.6) k/uL RBC (4.30-5.90) m/uL Hgb (13.0-17.5) gm/dL Hct (39.0-53.0) % RDW (11.5-15.5) % PT (9.0-12.0) sec INR (<1.2) Sodium (137-145) mmol/L BUN (9-20) mg/dL Creatinine (0.66-1.25) mg/dL Glucose (74-99) mg/dL POC Glucose (mg/dL) 220 H 150 H (75-99) mg/dL Calcium (8.4-10.2) mg/dL Phosphorus (2.5-4.5) mg/dL Assessment and Plan Plan: Assessment 1 acute dyspnea /hypoxemia, currently under investigation. The patient has developed bilateral pulmonary infiltrates more so in the lower lobes. Rule out aspiration pneumonia. Rule out atelectasis.. The VQ scan was negative for pulmonary embolism and it came back at a low probability. on 10/24/2016 the patient is still on high flow oxygen 8 L/m nasal cannula. The patient using incentive spirometer. Chest x-ray findings are stable. The patient is not having any significant respiratory distress. The FiO2 will be gradually weaned down. On 10/25/2016 the patient is more hypoxic compared yesterday. The patient is up to 15 L of oxygen nasal cannula. He is comfortable. His chest x-ray showing a consolidation and possibly effusion of the left lung. Will need a blood gas to confirm the hypoxemia and make sure it's correlating with pulse ox. We'll need also a ultrasound of the chest to rule out any left-sided pleural effusion. Meanwhile the patient was diuresed adequately over the past 24 hours. Antibiotics is to be brought up further. On 10/26/2016 the patient continues to BE short of breath and he is on high flow oxygen 6 L/m nasal cannula. Chest x-ray shows a consolidation/ infiltration of the left lower lobe along with a pleural effusion that was confirmed by an ultrasound. The site of the effusion is small and draining the effusion will be of a suboptimal benefit. 2 troponin leak, free of any chest pain. Rule out underlying non-STEMI 3 right hip ORIF, postop day #6 4 small bowel ileus/obstruction with secondary abdominal distention 5 right-sided fractures related to falls 6 Chronic atrial fibrillation, rate is controlled for now, the patient's PT/INR is therapeutic 7 CVA, history of 8 hypertension 9 macular degeneration 10 osteoarthritis 11 BPH 12 chronic renal failure, creatinine remains stable, and it's improving and the creatinine is down to 1.7 13 anemia. The hemoglobin is stable at 9.0 and the patient received a unit of packed RBC 2 days ago. 14 carotid artery stenosis, history of 15 smoker 16 abdominal aortic aneurysm that has been repaired 17 alcoholism and the patient drinks 30 beers a week, average is around 4-6 beers on a daily basis 18 frequent falls Plan Keep high flow oxygen to maintain a saturation above 90%. Continue cefepime and Levaquin. Continue deep breathing and using the incentive spirometer. Repeat chest x-ray in the morning. The patient denied and declined intubation mechanical ventilation and he was to be a DO NOT RESUSCITATE and DO NOT INTUBATE CODE STATUS. The patient was also found to have small bowel obstruction/small bowel ileus with abdominal distention and this probably is contributing to shortness of breath. Currently is nothing by mouth. May consider insertion of an NG tube if needed. Continue bronchodilators. Continue systemic steroids. Continue antibiotics. Condition remains critical. We'll continue to follow.
--- NOTE | 2016-10-26 14:52 | P.PN ---
Subjective Progress note being dictated for Dr. Rebollar. Interval history: This is an 81-year-old gentleman admitted with right-sided hip fracture secondary to mechanical fall, in a patient with history of atrial fibrillation, legally blind, alcohol abuse and multiple other medical issues. Evaluated by orthopedics and surgery pending. Received vitamin K yesterday, INR currently 2.3 and received another dose of vitamin K. Mildly hyperkalemic at 5.4, Kayexalate ordered. Worsened renal function, creatinine 2.48. Sodium 133. Denies chest pain, palpitations or increasing shortness of breath. 10/21/2016 status post right intertrochanteric nail fixation for hip fracture POD #1. Complaining of right hip pain. Desatted with labored breathing, though states not short of breath.Received Lasix, nebulized bronchodilators and placed on a nonrebreather initially. Chest x-ray reported bilateral areas of infiltrate and tiny effusion, underlying COPD. evaluated by Dr. Segal, transferred to ICU. Hemoglobin 8.4. Renal function improving. 10/22/16 maintained on antibiotics, nebulized bronchodilators. Slow improvement in respiratory function. Maintaining O2 sats of 91% on 5 L nasal cannula. Denies shortness of breath. VQ reporting low probability for PE, underlying COPD. chest x-ray noted. Maintained on CIWA protocol, possible early DTs. 10/23/2016 INR 1.0 on Coumadin. hemoglobin this morning 6.7, received one unit of packed RBC. Breathing continues to improve on nebulized bronchodilators with oxygen titrated down to 4 L nasal cannula. Afebrile. Pain controlled. Denies chest pain, palpitations or increasing shortness of breath.Antibiotics changed to Zosyn. ECHO pending. 10/24/2016. Maintained on antibiotics, nebulized bronchodilators,CIWA protocol. Afib, anticoagulated on Coumadin. INR 1.2. Anxious, becomes tachycardic and wheezy. Occasional cough. Chest x-ray suggestive of pulmonary edema. Afebrile. Maintaining O2 sats of 94% on 5 L high flow nasal cannula. Hemoglobin currently 8.6 after receiving 1 unit of packed RBCs yesterday. 10/25/2016. Fluids discontinued and Diuresed yesterday with Lasix IV push. Diuresed well with 24-hour I&O reflecting a negative fluid balance. Renal function worsening. Maintained on nebulized bronchodilators, steroids, Levaquin and addition of cefepime. Respiratory status worsened overnight, currently on 15 L high flow nasal cannula. Chest x-ray reporting decompensated CHF, interstitial pulmonary edema, small left pleural effusion with associated compressive atelectasis. Telemetry reporting atrial fibrillation with heart rates currently in the 110s. Chest ultrasound pending. Afebrile. INR 1.7. Objective - Vital Signs Vital signs: Vital Signs Temp 98.5 F 10/25/16 08:00 Pulse 108 H 10/25/16 09:00 Resp 20 10/25/16 09:00 BP 133/89 10/25/16 09:00 Pulse Ox 88 L 10/25/16 09:00 Intake & Output 10/24/16 10/25/16 10/25/16 18:59 06:59 18:59 Intake Total 680 740 20 Output Total 1035 885 230 Balance -355 -145 -210 Weight 85.5 kg Intake: IV 630 740 20 Sodium Chloride 0.9% 1, 630 740 20 000 ml @ 100 mls/hr IV . Q10H MAX Rx#:[id number] Intake, IV Titration 50 Amount Levofloxacin 250Mg-D5w 50 Pmx 250 mg In Dextrose/ Water 1 50ml.bag @ 50 mls /hr IVPB Q24H MAX Rx#: [id number] Output: Urine 1035 885 230 Other: Voiding Method Indwelling Catheter Indwelling Catheter - Exam GENERAL: Sitting up in bed, alert and oriented 2-3, tired appearing, respiratory effort increased. HEENT: Conjunctivae normal. Oral mucosa moist. NECK: No JVD. No thyroid enlargement. No LNs CARDIOVASCULAR: S1, S2 muffled. No murmur, rub or gallop, trace edema RESPIRATION: Respiratory effort increased, Breath sounds diminished in the bases -more so on the left, no crackles, no wheezing currently. ABDOMEN: Soft, nontender . No guarding. no masses palpable. No ascites, No hepatosplenomegaly.Bowel sounds heard. Bruised, soft scrotum. NERVOUS SYSTEM: Cranial N 2-12 grossly normal. Diffuse weakness No focal deficits. Skin: no ulcer no rash Lymphatic system. No LN neck axilla or groin. - Labs CBC & Chem 7: 10/26/16 04:27 10/26/16 11:57 Labs: Abnormal Lab Results - Last 24 Hours (Table) 10/23/16 10/24/16 10/24/16 Range/Units 05:39 04:19 12:15 WBC (3.8-10.6) k/uL RBC (4.30-5.90) m/uL Hgb (13.0-17.5) gm/dL Hct (39.0-53.0) % MCHC (31.0-37.0) g/dL RDW (11.5-15.5) % PT (9.0-12.0) sec INR (<1.2) Sodium (137-145) mmol/L Carbon Dioxide (22-30) mmol/L BUN (9-20) mg/dL Creatinine (0.66-1.25) mg/dL Glucose (74-99) mg/dL POC Glucose (mg/dL) 194 H (75-99) mg/dL Hemoglobin A1c 6.2 H (4.2-6.1) % Calcium (8.4-10.2) mg/dL Phosphorus (2.5-4.5) mg/dL Crossmatch See Detail 10/24/16 10/24/16 10/25/16 Range/Units 17:30 22:33 04:07 WBC (3.8-10.6) k/uL RBC (4.30-5.90) m/uL Hgb (13.0-17.5) gm/dL Hct (39.0-53.0) % MCHC (31.0-37.0) g/dL RDW (11.5-15.5) % PT (9.0-12.0) sec INR (<1.2) Sodium 136 L (137-145) mmol/L Carbon Dioxide 21 L (22-30) mmol/L BUN 63 H (9-20) mg/dL Creatinine 1.60 H (0.66-1.25) mg/dL Glucose 143 H (74-99) mg/dL POC Glucose (mg/dL) 159 H 164 H (75-99) mg/dL Hemoglobin A1c (4.2-6.1) % Calcium 8.2 L (8.4-10.2) mg/dL Phosphorus 5.0 H (2.5-4.5) mg/dL Crossmatch 10/25/16 10/25/16 10/25/16 Range/Units 04:07 04:07 07:43 WBC 13.7 H (3.8-10.6) k/uL RBC 2.91 L (4.30-5.90) m/uL Hgb 8.4 L (13.0-17.5) gm/dL Hct 27.4 L (39.0-53.0) % MCHC 30.7 L (31.0-37.0) g/dL RDW 18.2 H (11.5-15.5) % PT 16.7 H (9.0-12.0) sec INR 1.7 H (<1.2) Sodium (137-145) mmol/L Carbon Dioxide (22-30) mmol/L BUN (9-20) mg/dL Creatinine (0.66-1.25) mg/dL Glucose (74-99) mg/dL POC Glucose (mg/dL) 166 H (75-99) mg/dL Hemoglobin A1c (4.2-6.1) % Calcium (8.4-10.2) mg/dL Phosphorus (2.5-4.5) mg/dL Crossmatch Assessment and Plan Plan: 1. Right-sided hip fracture secondary to mechanical fall, status post surgical repair 2. Acute hypoxic respiratory failure secondary to possible left lower lobe pneumonia, possible sepsis , left pleural effusion 3. Acute COPD exacerbation 4. Chronic, persistent Atrial fibrillation, 5. Legal blindness 6. Alcohol abuse, possible early DTs 7. Acute on chronic renal failure, stage III 8. hyponatremia, probably hypovolemic, improved 9. No Code, No CPR, No Intubation Plan: Continue on current medication regime , antibiotics, monitoring and symptomatic treatment. Maintain CIWA protocol. Cefepime added to antibiotic regimen. Aggressive pulmonary toileting. Ultrasound pending for potential thoracentesis. IDaily PT INR. Prognosis guarded given multiple complex medical issues, discussed with family. Patient is now no code, no CPR, no intubation. Further recommendations to follow. The impression and plan of care has been dictated as directedas a adis Mcbride: I performed a H&P examination of this patient and discussed the same with the dictator. I agree with the dictator's note. Any additional findings/opinions/ etc. will be noted.
[2016-10-26] MEDS ORDERED: IV VANCOMYCIN PER PHARMACY 1 EACH MISC MISCELLANE ONE (16:00)
[2016-10-26] MEDS ORDERED: VANCOMYCIN 1,500 MG in SODIUM CHLORIDE 0.9% 250 ML IVPB SCH (17:00)
[2016-10-26 17:07] LABS: Glucose,Whole Blood 168 mg/dL (75-99)
[2016-10-26] MEDS: METOPROLOL TARTRATE 5 MG/5 ML VIAL IVP SCH ×2 (21:22→23:52)
[2016-10-26 21:23] LABS: Glucose,Whole Blood 159 mg/dL (75-99)
[2016-10-26] MEDS: SENNOSIDES-DOCUSATE SODIUM 1 EACH TAB PO SCH (21:23)
[2016-10-27] MEDS: methylPREDNISolone SOD SUCCI 40 MG/ML 1 ML VIAL IV SCH (05:16)
[2016-10-27] MEDS: METOPROLOL TARTRATE 5 MG/5 ML VIAL IVP SCH (05:16)
[2016-10-27 05:43] LABS: Anisocytosis Slight; CH 30.8; CHCM 33.7; HDW 3.46; HGB 9.2 gm/dL (13.0-17.5); Hypochromasia Slight; MCH 30.3 pg (25.0-35.0); MCHC 32.8 g/dL (31.0-37.0); MCV 92.4 fL (80.0-100.0); Mean Platelet Volume 8.9; Poikilocytosis Slight; RBC 3.03 m/uL (4.30-5.90); RDW 18.5 % (11.5-15.5); WBC 23.1 k/uL (3.8-10.6)
[2016-10-27 05:53] LABS: Calcium 8.5 mg/dL (8.4-10.2); Magnesium 2.5 mg/dL (1.6-2.3); Phosphorous 4.9 mg/dL (2.5-4.5)
[2016-10-27 07:39] LABS: Glucose,Whole Blood 171 mg/dL (75-99)
--- NOTE | 2016-10-27 08:00 | XR ---
EXAMINATION TYPE: XR chest 1V portable DATE OF EXAM: 10/27/2016 COMPARISON: 10/26/2016 HISTORY: Shortness of breath TECHNIQUE: Single frontal view of the chest is obtained. FINDINGS: Bilateral subsegmental consolidation and small effusion greater on the left stable. Inters titial pattern noted. Chronic rib deformity seen. NG tube stable. Arthropathy of the shoulders. No pn eumothorax. Correlate for underlying COPD. IMPRESSION: 1. Stable left lower lobe infiltrate and small effusion with tiny right effusion suspected. 2. Findings suggest underlying COPD with chronic interstitial lung disease. Superimposed venous conge stion or interstitial pneumonitis in the differential diagnosis.
[2016-10-27] MEDS: CEFEPIME 2 GM in SODIUM CHLORIDE 0.9% 50 ML IVPB SCH (08:22)
[2016-10-27] MEDS: NICOTINE 14MG/24HR PATCH TRANSDERM SCH (08:22)
[2016-10-27] MEDS: INSULIN LISPRO (humaLOG) 300 UNIT/3 ML VIAL SQ SCH (08:22)
[2016-10-27] MEDS: PANTOPRAZOLE 40 MG/10 ML VIAL IVP SCH (08:22)
[2016-10-27] MEDS: ATORVASTATIN 40 MG TAB PO SCH (08:23)
[2016-10-27] MEDS: ASPIRIN 81 MG PO SCH (08:23)
--- NOTE | 2016-10-27 08:41 | P.PN ---
Subjective Principal diagnosis: Status post right intertrochanteric nail fixation, COPD, hypoxia This is a pleasant 81-year-old male who is status post right intertrochanteric nail fixation on 10/20/2016. This is postoperative day #7. Patient is currently in the ICU for hypoxia, history of COPD and cardiac issues. Patient states the pain to the right hip has been well-controlled. Patient denies any calf pain or swelling. Patient has no new complaints today. Objective - Vital Signs Vital signs: Vital Signs Temp 97.8 F 10/27/16 05:00 Pulse 92 10/27/16 07:00 Resp 8 L 10/27/16 07:00 BP 137/67 10/27/16 07:00 Pulse Ox 97 10/27/16 07:00 Intake & Output 10/26/16 10/27/16 10/27/16 18:59 06:59 18:59 Intake Total 535 345 10 Output Total 706 1790 40 Balance -171 -1445 -30 Weight 85.2 kg 83.4 kg Intake: IV 335 345 10 0.9 110 120 10 Cefepime 2 gm In Sodium 100 100 Chloride 0.9% 50 ml @ 100 mls/hr IVPB Q12HR MAX Rx #:[id number] Vancomycin 1,500 mg In 125 125 Sodium Chloride 0.9% 250 ml @ 125 mls/hr IVPB Q24H MAX Rx#:[id number] Intake, IV Titration 200 Amount Potassium Chloride 10 meq 200 Lidocaine 2% Inj 10 mg In Sodium Chloride 0.9% 100 ml @ 100 mls/hr IV Q1HR MAX Rx#:[id number] Output: Urine 706 690 40 Emesis 1100 Other: Voiding Method Indwelling Catheter Indwelling Catheter - Exam Vital signs are stable. Patient is in no acute distress and is answering questions appropriately. Patient is alert and oriented 3. Calf is soft and nontender. Incision is clean, dry, and intact. Anthony are intact There is mild serosanguineous drainage. There is no surrounding erythema. Neurovascular status intact. Sensation intact. Patient has full foot and ankle motion without difficulty or pain. - Labs CBC & Chem 7: 10/27/16 05:29 10/27/16 05:29 Labs: Abnormal Lab Results - Last 24 Hours (Table) 10/26/16 10/26/16 10/26/16 Range/Units 12:10 17:05 21:20 WBC (3.8-10.6) k/uL RBC (4.30-5.90) m/uL Hgb (13.0-17.5) gm/dL Hct (39.0-53.0) % RDW (11.5-15.5) % Sodium (137-145) mmol/L BUN (9-20) mg/dL Creatinine (0.66-1.25) mg/dL Glucose (74-99) mg/dL POC Glucose (mg/dL) 150 H 168 H 159 H (75-99) mg/dL Phosphorus (2.5-4.5) mg/dL Magnesium (1.6-2.3) mg/dL 10/27/16 10/27/16 10/27/16 Range/Units 05:29 05:29 07:37 WBC 23.1 H (3.8-10.6) k/uL RBC 3.03 L (4.30-5.90) m/uL Hgb 9.2 L (13.0-17.5) gm/dL Hct 28.0 L (39.0-53.0) % RDW 18.5 H (11.5-15.5) % Sodium 135 L (137-145) mmol/L BUN 75 H (9-20) mg/dL Creatinine 1.50 H (0.66-1.25) mg/dL Glucose 164 H (74-99) mg/dL POC Glucose (mg/dL) 171 H (75-99) mg/dL Phosphorus 4.9 H (2.5-4.5) mg/dL Magnesium 2.5 H (1.6-2.3) mg/dL Assessment and Plan (1) Fracture, intertrochanteric, right femur Status: Acute Plan: #1. Nonweightbearing to the right lower extremity. #2. Will continue to follow patient closely. Patient is stable for discharge from an orthopedic standpoint.
[2016-10-27] MEDS: BUDESONIDE 1 MG/2 ML NEBU INHALATION SCH (08:43)
[2016-10-27] MEDS: FORMOTEROL FUMARATE 20 MCG/2 ML NEBU INHALATION SCH (08:43)
[2016-10-27] MEDS: IPRATROPIUM-ALBUTEROL 3 ML NEB INHALATION SCH ×2 (08:43→12:01)
[2016-10-27 09:34] VITALS: TEMP 97.9
[2016-10-27] MEDS: ONDANSETRON 4 MG/2 ML VIAL IVP PRN (09:52)
[2016-10-27 11:03] VITALS: BMI 24.3
[2016-10-27 12:27] LABS: Glucose,Whole Blood 174 mg/dL (75-99)
[2016-10-27 13:24] VITALS: BP 142/77; PULSE 121; RESP 26
[2016-10-27] MEDS ORDERED: ACETAMINOPHEN IV (For NPO) 1,000 MG in EMPTY BAG 1 BAG IVPB ONE (13:30)
--- NOTE | 2016-10-27 13:44 | P.PN ---
Subjective This is an 81-year-old male. He apparently fell while at home and he fractured his right hip. He apparently has poor vision and falls frequently. His right hip fracture was repaired by one of the orthopedic surgeons a couple days ago, on 10/20/2016.. The patient apparently started having issues with his breathing and saturations overnight. For that reason, the patient was brought into the intensive care unit on 10/21/2016. The patient was seen in consultation by Dr Segal. The patient admitted that that he was having some respiratory distress although he denied everything else. His chest x-ray suggests bibasilar infiltrates and/or atelectasis. The patient was placed on high flow O2. His medical history includes among other things atrial fibrillation CVA hypertension DJD poor vision benign prostatic hypertrophy anemia and ileus. The patient also suffers from chronic renal failure. He is a chronic smoker. His troponins were minimally elevated with levels of 0.1, 0.0 0.5 respectively 3. His VQ scan was of a low probability. The patient had triple matched defects corresponding to airspace disease within the right middle lobe, right lower lobe and left lower lobe. I reviewed his chest x-rays postop and the patient has a right-sided fractures. Infiltration can be seen also on the lower lobes bilaterally. He has been maintained on oral Zithromax. He has remained afebrile throughout the hospitalization. The patient has also carotid artery disease that was confirmed back in 2014 by [facility] and the patient has approximately 50-69% stenosis of the left internal carotid artery. On 10/23/2016 the patient is on 4 L of oxygen by nasal cannula. He is not having any major respiratory distress. He is calm and comfortable. No reported aspiration. He is tolerating his diet fine and he swallows without any major difficulties. No chest pain. No fever. No chills. No night sweats. His morning hemoglobin was around 6.7. The patient was given a unit of packed RBC. Note that his admission hemoglobin was at 12.6. No evidence of any external GI bleeding. The surgical wound site is dry clean and intact. No evidence of any hematoma formation. The patient has no coagulopathy. He used to take Coumadin at home for chronic atrial fibrillation this was restarted yesterday. The PT/INR from this morning is 10.5 x 1.0 respectively. on 10/24/2016 I'm seeing this patient in follow-up. the patient is still recovering from his hip surgery. This morning it is on 8 L of oxygen by nasal cannula and his chest x-ray showing some limited infiltration of the lung bases. I started him on Levaquin yesterday. Minimal cough. Minimal chest congestion. No fever chills or night sweats. his hemoglobin is stable. The patient received a unit of packed RBC yesterday. His right thigh incision is clean and intact. He has developed some scrotal hematoma which probably is related to the surgery and I suspect that the patient may have had some bleeding within the thigh or within the retroperitoneum. In any rate, there is no evidence of any ongoing bleed and the hemoglobin is stable and the patient was started on anticoagulation with warfarin. His cardiac rhythm is still atrial fibrillation. The patient has a controlled rate. No hypotension. No change in mental status. His right hip is still nonweightbearing and he was able to participate in physical therapy yesterday. no signs of delirium tremens. On 10/25/2016 the patient is more short of breath compared to yesterday. Note that yesterday he was up to 8 L of oxygen nasal cannula and this morning it was brought up to 15 L. The pulse ox is not correlating and the blood gases will be needed to confirm the correlation between the pulse ox and the pO2. On today 's chest x-ray there is a dense consolidation of the left lung suspecting an underlying pneumonia. Overnight the patient was placed on diuretics 40 mg every 12 hours and he is in a negative fluid balance. He has put out more than 1.5 L of urine output and he is in a negative fluid balance. Surgical wound site is clean and intact. PT/INR is subtherapeutic. The patient remains in atrial fibrillation. He remains quite weak. No significant change in mental status. He is awake and alert and following commands and answering questions appropriately. He remains on bronchodilators [id number] with DuoNeb nebulized treatments, he is also on a combination of Perforomist and Pulmicort neb last 2 minutes twice a day, he is on IV Solu Medrol 40 mg every 6 hours, he is on Levaquin and cefepime will be added to broaden his antibiotic coverage. A pleural effusion was suspected also on the left and a ultrasound of the chest will be done. On 10/26/2016 I'm seeing this patient in follow-up in the intensive care unit. His condition is a bit worse compared to yesterday. He has become more hypoxic. Note that he was on 8 L of oxygen nasal cannula earlier and was placed on high flow oxygen currently running at 60 L. The current pulse ox is around 95%. Chest x-ray shows a dense consolidation of the left lower lobe and the patient remains on a combination of cefepime and Levaquin. Ultrasound of the chest was done and small pocket of pleural effusions also marked on the left. Hemodynamically stable. No hypotension. No pressor use. He remains in atrial fibrillation. His abdomen is slightly distended on today's evaluation and the flat film of the abdomen shows dilated loops of small bowel throughout the abdomen and there is some colonic care without any colonic distention. This is consistent with small bowel ileus versus early small bowel obstruction. The patient is unable to eat for now and he is currently nothing by mouth. His INR is therapeutic at 2.8. Hemoglobin stable at 9.0. Renal function is also stable at creatinine of 1.7. Very weak. Debilitated. Awake. Following commands. Requesting a DNR/DNI CODE STATUS. The patient is seen again today 10/27/2016 in follow-up in the intensive care unit. He is currently awake and alert. He is oriented. He had pulled out his nasogastric tube and was refusing to have it placed back in. He is still quite nauseated and refusing any thing to eat or drink currently. He is requesting to go home with his daughter and to be placed in hospice care. He declines to have any further interventions done. His chest x-ray showing stable left lower lobe infiltrate and small effusion. He is still requiring 75% FiO2 to maintain O2 saturations in the 90s. He remains in atrial fibrillation with a controlled ventricular response. His white count is up to 23.1. Hemoglobin stable at 9.2. BUN 75. Creatinine 1.50. Objective - Vital Signs Vital signs: Vital Signs Temp 97.9 F 10/27/16 12:00 Pulse 121 H 10/27/16 13:00 Resp 26 H 10/27/16 13:00 BP 142/77 10/27/16 13:00 Pulse Ox 91 L 10/27/16 13:00 Intake & Output 10/26/16 10/27/16 10/27/16 18:59 06:59 18:59 Intake Total 535 345 150 Output Total 706 1790 310 Balance -171 -1445 -160 Weight 85.2 kg 83.4 kg 83.4 kg Intake: IV 335 345 150 0.9 110 120 50 Cefepime 2 gm In Sodium 100 100 100 Chloride 0.9% 50 ml @ 100 mls/hr IVPB Q12HR MAX Rx #:[id number] Vancomycin 1,500 mg In 125 125 Sodium Chloride 0.9% 250 ml @ 125 mls/hr IVPB Q24H MAX Rx#:[id number] Intake, IV Titration 200 Amount Potassium Chloride 10 meq 200 Lidocaine 2% Inj 10 mg In Sodium Chloride 0.9% 100 ml @ 100 mls/hr IV Q1HR MAX Rx#:[id number] Output: Urine 706 690 310 Emesis 1100 Other: Voiding Method Indwelling Catheter Indwelling Catheter Indwelling Catheter - Exam Gen. appearance is calm, somewhat a mild degree of respiratory distress. The patient is also wearing a high flow oxygen through nasal cannula at 6 L. His resting comfortably in bed.Head exam was generally normal. There was no scleral icterus or corneal arcus. Mucous membranes were moist.Neck was supple and without jugular venous distension, thyromegaly, or carotid bruits. Carotids were easily palpable bilaterally. There was no adenopathy.lungs sounds are diminished in lung bases bilaterally along with some bibasilar crackles. The breath sounds are more diminished on the left lung along with dullness to percussion. Heart sounds are irregular, positive S1-S2 and there is a faint systolic ejection murmur heard throughout the precordium.Abdominal exam revealed normal bowel sounds. The abdomen is distended and the patient has diminished bowel sounds and there is tympany upon palpation and percussion. The abdominal exam also shows no masses, organomegaly, or appreciable enlargement of the abdominal aorta. There is evidence of scrotal hematoma. The scrotum is nonswollen at this point. Extremities are showing trace edema and there is no cyanosis or clubbing. His surgical wound site over the right hip area is dry clean and intact. Neurologically the patient is awake and following commands and answering questions appropriately. - Labs CBC & Chem 7: 10/27/16 05:29 10/27/16 05:29 Labs: Abnormal Lab Results - Last 24 Hours (Table) 10/26/16 10/26/16 10/27/16 Range/Units 17:05 21:20 05:29 WBC 23.1 H (3.8-10.6) k/uL RBC 3.03 L (4.30-5.90) m/uL Hgb 9.2 L (13.0-17.5) gm/dL Hct 28.0 L (39.0-53.0) % RDW 18.5 H (11.5-15.5) % Sodium (137-145) mmol/L BUN (9-20) mg/dL Creatinine (0.66-1.25) mg/dL Glucose (74-99) mg/dL POC Glucose (mg/dL) 168 H 159 H (75-99) mg/dL Phosphorus (2.5-4.5) mg/dL Magnesium (1.6-2.3) mg/dL 10/27/16 10/27/16 10/27/16 Range/Units 05:29 07:37 12:25 WBC (3.8-10.6) k/uL RBC (4.30-5.90) m/uL Hgb (13.0-17.5) gm/dL Hct (39.0-53.0) % RDW (11.5-15.5) % Sodium 135 L (137-145) mmol/L BUN 75 H (9-20) mg/dL Creatinine 1.50 H (0.66-1.25) mg/dL Glucose 164 H (74-99) mg/dL POC Glucose (mg/dL) 171 H 174 H (75-99) mg/dL Phosphorus 4.9 H (2.5-4.5) mg/dL Magnesium 2.5 H (1.6-2.3) mg/dL Assessment and Plan Plan: Assessment 1 acute dyspnea /hypoxemia, currently under investigation. The patient has developed bilateral pulmonary infiltrates more so in the lower lobes. Rule out aspiration pneumonia. Rule out atelectasis.. The VQ scan was negative for pulmonary embolism and it came back at a low probability. on 10/24/2016 the patient is still on high flow oxygen 8 L/m nasal cannula. The patient using incentive spirometer. Chest x-ray findings are stable. The patient is not having any significant respiratory distress. The FiO2 will be gradually weaned down. On 10/25/2016 the patient is more hypoxic compared yesterday. The patient is up to 15 L of oxygen nasal cannula. He is comfortable. His chest x-ray showing a consolidation and possibly effusion of the left lung. Will need a blood gas to confirm the hypoxemia and make sure it's correlating with pulse ox. We'll need also a ultrasound of the chest to rule out any left-sided pleural effusion. Meanwhile the patient was diuresed adequately over the past 24 hours. Antibiotics is to be brought up further. On 10/26/2016 the patient continues to BE short of breath and he is on high flow oxygen 6 L/m nasal cannula. Chest x-ray shows a consolidation/ infiltration of the left lower lobe along with a pleural effusion that was confirmed by an ultrasound. The site of the effusion is small and draining the effusion will be of a suboptimal benefit. On 10/27/2016 the patient is seen again today in follow-up in the intensive care unit. He has pulled out his nasogastric tube and is declining to have it replaced. He is slightly nauseated. His chest x-ray shows stable left lower lobe infiltrate. The patient at this point is declining to have any further interventions or testing done. He is requesting to go home with hospice. 2 troponin leak, free of any chest pain. Rule out underlying non-STEMI 3 right hip ORIF, postop day #7 4 small bowel ileus/obstruction with secondary abdominal distention 5 right-sided fractures related to falls 6 Chronic atrial fibrillation, rate is controlled for now, the patient's PT/INR is therapeutic 7 CVA, history of 8 hypertension 9 macular degeneration 10 osteoarthritis 11 BPH 12 chronic renal failure, creatinine remains stable, and it's improving and the creatinine is down to 1.50 13 anemia. The hemoglobin is stable at 9.2 and the patient received a unit of packed RBC 2 days ago. 14 carotid artery stenosis, history of 15 smoker 16 abdominal aortic aneurysm that has been repaired 17 alcoholism and the patient drinks 30 beers a week, average is around 4-6 beers on a daily basis 18 frequent falls Plan The patient was seen and evaluated by Dr. Chahal. His chest x-ray and labs were reviewed. He had further discussion with the patient and his daughter who is at the bedside. They are requesting the patient to be placed into hospice. [facility] clinical education coordinator has been consulted. He will be transferred out of the intensive care unit until further arrangements are made. As pulmonary and critical care, we will sign off the case.
[2016-10-27] MEDS ORDERED: LORazepam 2 MG/ML SYRINGE IV PRN ×2 (14:17→16:01)
[2016-10-27] MEDS ORDERED: ACETAMINOPHEN SUPPOSITORY 650 MG SUPP RECTAL PRN ×2 (14:17→16:01)
[2016-10-27] MEDS ORDERED: ONDANSETRON 4 MG/2 ML VIAL IVP PRN ×2 (14:17→16:01)
[2016-10-27] MEDS ORDERED: BISACODYL 10 MG SUPP RECTAL PRN ×2 (14:17→16:04)
[2016-10-27] MEDS ORDERED: MORPHINE SULFATE (100 MG/2 ML) 100 MG in SODIUM CHLORIDE 0.9% 100 ML IV SCH ×2 (14:30→16:15)
--- NOTE | 2016-10-27 16:12 | CDI ---
In responding to this query, please exercise your independent professional judgment. The [facility] Coding Staff and Clinical Documentation Specialists appreciate your assistance in clarifying documentation, maintaining compliance with coding guidelines, accurately documenting patients condition and capturing severity of illness. The fact that a question is asked does not imply that any particular answer is desired or expected. Communication forms are a method of clarifying documentation and are not made part of the Legal Health Record. Thank you in advance for your clarification. Last Revision, Mar 2016 Jayshree Magallanes [address] [place] [address] Documentation Clarification Form Date: 10/27/2016 3:12:00 PM From: Katherine Gil Admit Date: 10/19/2016 12:35:00 AM Patient Name: Leon Burrell Visit Number: [id number] Discharge Date: Dr. Bob Raya 10/24/16 progress notes has is documented the patient developed some scrotal hematoma which is related to the surgery. Patients Admitting Diagnosis: Right Hip fracture Post-Operative Diagnosis: same Procedure performed: Right hip comminuted intertrochanteric fracture closed reduction and intramedullary nailing. History/Risk Factors: CVA, HTN, BPH, Chronic smoker, chronic persistent atrial fibrillation, Clinical Indicators: admit after fall with right hip fracture. Patient was on Coumadin and had developed a hematoma around the hip. Treatment: Transfuse 1 unit PRBC Monitor Labs Consults: Pulmonary: I suspect that the patient may have had some bleeding within the thigh or within the retroperitoneum. No evidence of any ongoing bleed and the hemoglobin is stable. In order to accurately reflect this patients severity of illness, please clarify if the post-operative diagnosis of scrotal hematoma is: An expected post-procedural or post-surgical condition (specify possible cause) Integral to the procedure Inherent to the procedure An unexpected post-procedural or post-surgical condition, related to surgical care, medical condition, other (specify) Other, please specify Unable to determine Scrotal hematoma ruled out (specify) Please document in your progress notes and discharge summary in order to capture severity of illness and risk of mortality. Include clinical findings that support your diagnosis. FYI: Press F11 to launch patient chart MTDD
--- NOTE | 2016-10-27 16:19 | P.PN ---
Subjective Progress note being dictated for Dr. Aiken Interval history: This is an 81-year-old gentleman admitted with right-sided hip fracture secondary to mechanical fall, in a patient with history of atrial fibrillation, legally blind, alcohol abuse and multiple other medical issues. Evaluated by orthopedics and surgery pending. Received vitamin K yesterday, INR currently 2.3 and received another dose of vitamin K. Mildly hyperkalemic at 5.4, Kayexalate ordered. Worsened renal function, creatinine 2.48. Sodium 133. Denies chest pain, palpitations or increasing shortness of breath. 10/21/2016 status post right intertrochanteric nail fixation for hip fracture POD #1. Complaining of right hip pain. Desatted with labored breathing, though states not short of breath.Received Lasix, nebulized bronchodilators and placed on a nonrebreather initially. Chest x-ray reported bilateral areas of infiltrate and tiny effusion, underlying COPD. evaluated by Dr. Segal, transferred to ICU. Hemoglobin 8.4. Renal function improving. 10/22/16 maintained on antibiotics, nebulized bronchodilators. Slow improvement in respiratory function. Maintaining O2 sats of 91% on 5 L nasal cannula. Denies shortness of breath. VQ reporting low probability for PE, underlying COPD. chest x-ray noted. Maintained on CIWA protocol, possible early DTs. 10/23/2016 INR 1.0 on Coumadin. hemoglobin this morning 6.7, received one unit of packed RBC. Breathing continues to improve on nebulized bronchodilators with oxygen titrated down to 4 L nasal cannula. Afebrile. Pain controlled. Denies chest pain, palpitations or increasing shortness of breath.Antibiotics changed to Zosyn. ECHO pending. 10/24/2016. Maintained on antibiotics, nebulized bronchodilators,CIWA protocol. Afib, anticoagulated on Coumadin. INR 1.2. Anxious, becomes tachycardic and wheezy. Occasional cough. Chest x-ray suggestive of pulmonary edema. Afebrile. Maintaining O2 sats of 94% on 5 L high flow nasal cannula. Hemoglobin currently 8.6 after receiving 1 unit of packed RBCs yesterday. 10/25/2016. Fluids discontinued and Diuresed yesterday with Lasix IV push. Diuresed well with 24-hour I&O reflecting a negative fluid balance. Renal function worsening. Maintained on nebulized bronchodilators, steroids, Levaquin and addition of cefepime. Respiratory status worsened overnight, currently on 15 L high flow nasal cannula. Chest x-ray reporting decompensated CHF, interstitial pulmonary edema, small left pleural effusion with associated compressive atelectasis. Telemetry reporting atrial fibrillation with heart rates currently in the 110s. Chest ultrasound pending. Afebrile. INR 1.7. 10/27/2016 remains on 75% airvo, maintaining O2 sats in the 90s. Patient Pulled NG tube out and declining to have it be reinserted. Requesting to go home, with no further medical interventions. Poor diet intake, complains of nausea. Telemetry atrial fibrillation with controlled ventricular rate. Elevated WBC, 123, afebrile. Chest x-ray reporting stable left lower infiltrate , and small effusion with tiny right effusion suspected. Underlying COPD, chronic interstitial lung disease with superimposed venous congestion or interstitial pneumonitis. Objective - Vital Signs Vital signs: Vital Signs Temp 97.9 F 10/27/16 12:00 Pulse 121 H 10/27/16 13:00 Resp 26 H 10/27/16 13:00 BP 142/77 10/27/16 13:00 Pulse Ox 91 L 10/27/16 13:00 Intake & Output 10/26/16 10/27/16 10/27/16 18:59 06:59 18:59 Intake Total 535 345 150 Output Total 706 1790 310 Balance -171 -7175 -160 Weight 85.2 kg 83.4 kg 83.4 kg Intake: IV 335 345 150 0.9 110 120 50 Cefepime 2 gm In Sodium 100 100 100 Chloride 0.9% 50 ml @ 100 mls/hr IVPB Q12HR MAX Rx #:[id number] Vancomycin 1,500 mg In 125 125 Sodium Chloride 0.9% 250 ml @ 125 mls/hr IVPB Q24H MAX Rx#:[id number] Intake, IV Titration 200 Amount Potassium Chloride 10 meq 200 Lidocaine 2% Inj 10 mg In Sodium Chloride 0.9% 100 ml @ 100 mls/hr IV Q1HR MAX Rx#:[id number] Output: Urine 706 690 310 Emesis 1100 Other: Voiding Method Indwelling Catheter Indwelling Catheter Indwelling Catheter - Exam GENERAL: Sitting up in bed, alert and oriented 2-3, tired appearing, respiratory effort increased. Answering questions appropriately. Following simple commands. HEENT: Conjunctivae normal. Oral mucosa moist. NECK: No JVD. No thyroid enlargement. No LNs CARDIOVASCULAR: S1, S2 normal, irregular, positive murmur,no rub or gallop, trace edema RESPIRATION: Respiratory effort increased, Breath sounds diminished in the bases -more so on the left, no crackles, no wheezing currently. ABDOMEN: Soft, nontender . No guarding. no masses palpable. No ascites, No hepatosplenomegaly.Bowel sounds heard. Bruised, soft scrotum. No guarding, no rigidity NERVOUS SYSTEM: Cranial N 2-12 grossly normal. Diffuse weakness .No focal deficits. Skin: no ulcer no rash. Right Hip dressing clean dry and intact. Lymphatic system. No LN neck axilla or groin. - Labs CBC & Chem 7: 10/27/16 05:29 10/27/16 05:29 Labs: Abnormal Lab Results - Last 24 Hours (Table) 10/26/16 10/26/16 10/27/16 Range/Units 17:05 21:20 05:29 WBC 23.1 H (3.8-10.6) k/uL RBC 3.03 L (4.30-5.90) m/uL Hgb 9.2 L (13.0-17.5) gm/dL Hct 28.0 L (39.0-53.0) % RDW 18.5 H (11.5-15.5) % Sodium (137-145) mmol/L BUN (9-20) mg/dL Creatinine (0.66-1.25) mg/dL Glucose (74-99) mg/dL POC Glucose (mg/dL) 168 H 159 H (75-99) mg/dL Phosphorus (2.5-4.5) mg/dL Magnesium (1.6-2.3) mg/dL 10/27/16 10/27/16 10/27/16 Range/Units 05:29 07:37 12:25 WBC (3.8-10.6) k/uL RBC (4.30-5.90) m/uL Hgb (13.0-17.5) gm/dL Hct (39.0-53.0) % RDW (11.5-15.5) % Sodium 135 L (137-145) mmol/L BUN 75 H (9-20) mg/dL Creatinine 1.50 H (0.66-1.25) mg/dL Glucose 164 H (74-99) mg/dL POC Glucose (mg/dL) 171 H 174 H (75-99) mg/dL Phosphorus 4.9 H (2.5-4.5) mg/dL Magnesium 2.5 H (1.6-2.3) mg/dL Assessment and Plan Plan: 1. Right-sided hip fracture secondary to mechanical fall, status post surgical repair 2. Acute hypoxic respiratory failure secondary to possible left lower lobe pneumonia, possible sepsis , left pleural effusion 3. Acute COPD exacerbation 4. Chronic, persistent Atrial fibrillation, 5. Legal blindness 6. Alcohol abuse, possible early DTs 7. Acute on chronic renal failure, stage III 8. hyponatremia, probably hypovolemic, improved 9. No Code, No CPR, No Intubation 10. Postoperative anemia, expected; postevacuation of hematoma around right hip. 11. Post-op ileus, expected, multifactorial. 12. Moderate pulmonary hypertension 13. Moderate to severe mitral regurgitation 14. Moderate tricuspid regurgitation 15. Elevated troponins, without chest pain, possible non-STEMI; consistent with small myocardial injury as per cardiology-medical management. 16. Moderate protein calorie malnutrition, albumin 2.5. 17. Comfort care, hospice. Plan: Continue on current medication regime , antibiotics, monitoring and symptomatic treatment. Patient declining any further testing, interventions, patient and daughter requesting comfort care , hospice. CODE STATUS Changed to comfort care, home with hospice being arranged. The impression and plan of care has been dictated as directedas a adis Mcbride: I performed a H&P examination of this patient and discussed the same with the dictator. I agree with the dictator's note. Any additional findings/opinions/ etc. will be noted.
--- NOTE | 2016-11-01 11:51 | CDI ---
In responding to this query, please exercise your independent professional judgment. The [facility] Coding Staff and Clinical Documentation Specialists appreciate your assistance in clarifying documentation, maintaining compliance with coding guidelines, accurately documenting patients condition and capturing severity of illness. The fact that a question is asked does not imply that any particular answer is desired or expected. Communication forms are a method of clarifying documentation and are not made part of the Legal Health Record. Thank you in advance for your clarification. Last Revision, April 2016 Jayshree Magallanes [address] [facility] [place] [address] Documentation Clarification Form Date: 11/01/2016 11:38:00 AM From: Manju Nicole Admit Date: 10/19/2016 12:35:00 AM Patient Name: Leon Burrell Visit Number: [id number] Discharge Date: 10/27/16 Dr. Jerry Aiken CHF is documented in the in 10/25 & 10/27 PNs. History/Risk Factors: chronic persistent A Fib, alcoholism, HTN Echocardiogram Results: Right ventricular systolic pressure, as measured by doppler is 51.20 mmHg. Overall left ventricular systolic function is normal with an EF between 55-60%. Chest X Ray: CXR reported decompensataed CH, interstitial pulmonary edema, small left pleural effusion w assocated compressive atelectasis Treatment: IV Lasix Consults: SOB at rest improved with diuresis. Borderline troponins consistent with myocardial injury. In your professional opinion, can you please clarify the acuity and type of CHF if known? 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 Include clinical findings that support your diagnosis. FYI: Press F11 to launch patient chart. If you have a question about this query, please contact Pia Cobos, Head Host/Hostess, Jayshree Magallanes at [phone] between 8am and 5pm. No CHF MTDD
--- NOTE | 2016-11-03 11:16 | CDI ---
In responding to this query, please exercise your independent professional judgment. The [facility] Coding Staff and Clinical Documentation Specialists appreciate your assistance in clarifying documentation, maintaining compliance with coding guidelines, accurately documenting patients condition and capturing severity of illness. The fact that a question is asked does not imply that any particular answer is desired or expected. Communication forms are a method of clarifying documentation and are not made part of the Legal Health Record. Thank you in advance for your clarification. Last Revision, December 2014 Jayshree Magallanes [address] [facility] [place] [address] Documentation Clarification Form Date: 11/03/2016 11:08:00 AM From: Manjueben Nicole Admit Date: 10/19/2016 12:35:00 AM Patient Name: Leon Burrell Visit Number: [id number] Discharge Date: 10/27/16 Dr. Jerry Aiken Thank you for your response to previous query regarding CHF. However, we need you to do an addendum to the discharge summary about CHF ruled out or not. We cannot accept response to query on the form at this time. FYI: Press F11 to launch patient chart. If you have a question about this query, please contact Pia Cobos, Tonguer, Jayshree Magallanes at [phone] between 8am and 5pm. please send me the previous response. PABLOD
--- NOTE | 2016-11-15 08:06 | CDI ---
In responding to this query, please exercise your independent professional judgment. The [facility] Coding Staff and Clinical Documentation Specialists appreciate your assistance in clarifying documentation, maintaining compliance with coding guidelines, accurately documenting patients condition and capturing severity of illness. The fact that a question is asked does not imply that any particular answer is desired or expected. Communication forms are a method of clarifying documentation and are not made part of the Legal Health Record. Thank you in advance for your clarification. Last Revision, December 2014 Jayshree Magallanes [address] [facility] [place] [address] Documentation Clarification Form Date: 11/03/2016 11:08:00 AM From: Manju Nicole Admit Date: 10/19/2016 12:35:00 AM Patient Name: Leon Burrell Visit Number: [id number] Discharge Date: 10/27/16 Dr. Jerry Aiken Thank you for your response to previous query regarding CHF, No CHF. However, we need you to do an addendum to the discharge summary about CHF ruled out or not. We cannot accept response to query on the form at this time. FYI: Press F11 to launch patient chart. If you have a question about this query, please contact Pia Cobos, Film Archivist, Jayshree Magallanes at [phone] between 8am and 5pm. ZAMZAM
== END 2016-10-27 15:34 | disposition hospice, inpatient (51) | DRG 480 ==
LOC: EC 22:45 → 3SUR 10-19 00:35 → 6ICU 10-21 11:47
PROVIDERS: ADMIT Orthopaedic Surgery; ATTEND Hospitalist
PROC: 0QS636Z Reposition Right Upper Femur with Intramedullary Internal Fixation Device, Percutaneous Approach (ICD-10-PCS; principal; 2016-10-20 15:45)
PROC: 30233N1 Transfusion of Nonautologous Red Blood Cells into Peripheral Vein, Percutaneous Approach (ICD-10-PCS; 2016-10-23)
PROC: 0D9670Z Drainage of Stomach with Drainage Device, Via Natural or Artificial Opening (ICD-10-PCS; 2016-10-26)
DX: S72.141A Displaced intertrochanteric fracture of right femur, initial encounter for closed fracture (principal); J96.01 Acute respiratory failure with hypoxia; I21.4 Non-ST elevation (NSTEMI) myocardial infarction; N17.9 Acute kidney failure, unspecified; A41.9 Sepsis, unspecified organism; J18.9 Pneumonia, unspecified organism; J84.9 Interstitial pulmonary disease, unspecified; I48.1 Persistent atrial fibrillation; N18.3 Chronic kidney disease, stage 3 (moderate); J44.0 Chronic obstructive pulmonary disease with (acute) lower respiratory infection; K56.7 Ileus, unspecified; E87.1 Hypo-osmolality and hyponatremia; J44.1 Chronic obstructive pulmonary disease with (acute) exacerbation; E44.0 Moderate protein-calorie malnutrition; Z66 Do not resuscitate; Z51.5 Encounter for palliative care; E87.5 Hyperkalemia; I27.2 Other secondary pulmonary hypertension; I65.22 Occlusion and stenosis of left carotid artery; I08.1 Rheumatic disorders of both mitral and tricuspid valves; D64.9 Anemia, unspecified; I48.2 Chronic atrial fibrillation; I12.9 Hypertensive chronic kidney disease with stage 1 through stage 4 chronic kidney disease, or unspecified chronic kidney disease; F10.20 Alcohol dependence, uncomplicated; M19.91 Primary osteoarthritis, unspecified site; H54.8 Legal blindness, as defined in USA; F17.200 Nicotine dependence, unspecified, uncomplicated; R79.1 Abnormal coagulation profile; R29.6 Repeated falls; T45.515A Adverse effect of anticoagulants, initial encounter; H35.30 Unspecified macular degeneration; S30.22XA Contusion of scrotum and testes, initial encounter; N40.0 Benign prostatic hyperplasia without lower urinary tract symptoms; F41.9 Anxiety disorder, unspecified; G89.29 Other chronic pain; M54.9 Dorsalgia, unspecified; Z68.24 Body mass index [BMI] 24.0-24.9, adult; Z79.01 Long term (current) use of anticoagulants; Z79.899 Other long term (current) drug therapy; Z86.73 Personal history of transient ischemic attack (TIA), and cerebral infarction without residual deficits; Z95.1 Presence of aortocoronary bypass graft; Z86.79 Personal history of other diseases of the circulatory system; Z98.42 Cataract extraction status, left eye; Z98.41 Cataract extraction status, right eye; Z91.81 History of falling; Z88.1 Allergy status to other antibiotic agents; Z88.0 Allergy status to penicillin; W01.0XXA Fall on same level from slipping, tripping and stumbling without subsequent striking against object, initial encounter; Y92.009 Unspecified place in unspecified non-institutional (private) residence as the place of occurrence of the external cause; Y93.01 Activity, walking, marching and hiking
CPT/HCPCS: 36600; 71010; 71020; 72170; 73501; 74020; 76604; 78582; 80048; 80053; 82550; 82553; 82805; 83036; 83605; 83735; 84100; 84132; 84484; 85025; 85027; 85610; 85730; 86850; 86900; 86901; 86920; 93005; 93306; 94640; 94760; 96374; 96375; 99285

== ENCOUNTER 2016-10-27 15:34 | Inpatient (IN) | payer MEDICAID ==
[2016-10-27] MEDS ORDERED: ACETAMINOPHEN SUPPOSITORY 650 MG SUPP RECTAL PRN ×2 (16:05)
[2016-10-27] MEDS ORDERED: LORazepam 2 MG/ML SYRINGE IV PRN (16:05)
[2016-10-27] MEDS ORDERED: BISACODYL 10 MG SUPP RECTAL PRN (16:06)
[2016-10-27 16:39] VITALS: BMI 24.3
[2016-10-27] MEDS: ONDANSETRON 4 MG/2 ML VIAL IVP PRN (16:52)
[2016-10-28] MEDS: ONDANSETRON 4 MG/2 ML VIAL IVP PRN (00:05)
[2016-10-28 01:24] VITALS: RESP 14
[2016-10-28] MEDS: MORPHINE SULFATE (100 MG/2 ML) 100 MG in SODIUM CHLORIDE 0.9% 100 ML IV SCH ×2 (06:57→10:51)
[2016-10-28] MEDS ORDERED: SCOPOLAMINE 1.5MG/72HR PATCH TRANSDERM SCH (11:00)
[2016-10-28] MEDS ORDERED: LORazepam 2 MG/ML SYRINGE IV PRN (11:02)
[2016-10-28] MEDS ORDERED: LORazepam 2 MG/ML SYRINGE IV SCH (16:00)
--- NOTE | 2016-10-30 12:16 | DS ---
DISCHARGE SUMMARY DATE OF SERVICE: 10/28/2016 FINAL CAUSE OF : Chronic obstructive pulmonary disease acute exacerbation with pneumonia and sepsis OTHER DIAGNOSES: 1. Right-sided hip fracture secondary to mechanical fall and status post surgical repair. 2. Acute hypoxic respiratory failure secondary to left lower pneumonia with possible sepsis and pleural effusion. 3. Chronic persistent atrial fibrillation. 4. Legal blindness. 5. History of EtOH. 6. History renal failure. 7. Hyponatremia. HISTORY OF PRESENT ILLNESS: This 81-year-old gentleman with a past medical history of multiple medical problems admitted with hip fracture. Patient had surgery. Patient had multiple complications of COPD, pneumonia, sepsis. Patient treated in the ICU but however the case was discussed with family and family would like to proceed with comfort measures and hospice and the hospice measures are instituted and the patient succumbed to his illness. Please refer to multiple progress notes and consultations for further details. Prognosis remained guarded throughout hospitalization which was discussed with the family on multiple occasions. MMREESEL / IJN: [id number] /
== END 2016-10-28 19:50 | disposition expired | DRG 190 ==
LOC: 6ICU 15:34 → 5MS5E 16:37
PROVIDERS: ADMIT Orthopaedic Surgery; ATTEND Hospitalist
DX: J44.0 Chronic obstructive pulmonary disease with (acute) lower respiratory infection (principal); J18.9 Pneumonia, unspecified organism; J96.01 Acute respiratory failure with hypoxia; J90 Pleural effusion, not elsewhere classified; I48.1 Persistent atrial fibrillation; E87.1 Hypo-osmolality and hyponatremia; Z51.5 Encounter for palliative care; Z66 Do not resuscitate; J44.1 Chronic obstructive pulmonary disease with (acute) exacerbation; H54.8 Legal blindness, as defined in USA; M19.91 Primary osteoarthritis, unspecified site; I12.9 Hypertensive chronic kidney disease with stage 1 through stage 4 chronic kidney disease, or unspecified chronic kidney disease; N18.9 Chronic kidney disease, unspecified; Z79.01 Long term (current) use of anticoagulants; Z79.899 Other long term (current) drug therapy